=== PATIENT | male | born 1975 | race Caucasian/White ===

== ENCOUNTER 2017-07-25 08:34 | Observation (INO) ==
[~2017-07-25 08:34] MED LIST: *HR* LORazepam 2 MG/ML VIAL IV PRN; *HR* Promethazine 25 MG/ML VIAL IV PRN; Acetaminophen 325 MG TABLET PO ONE; Dexamethasone 10 MG/ML VIAL IV PRN; Methotrexate PFS 25 MG/ML VIAL IT SCH; Prochlorperazine 10 MG/2 ML VIAL IV PRN; RITUXIMAB IV SCH; SODIUM CHLORIDE 0.9% IV SCH
--- NOTE | 2017-07-25 10:58 | Internal Med History&Physical ---
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 Schreiber Qualifiers: Lymphoma site: extranodal excluding spleen and other solid organs Qualified Code(s): C83.79 - Burkitt lymphoma, extranodal and solid organ sites (2) GERD (gastroesophageal reflux disease) Current visit: Yes Status: Chronic Continue Pepcid Qualifiers: Esophagitis presence: with esophagitis Qualified Code(s): K21.0 - Gastro- esophageal reflux disease with esophagitis (3) Tobacco dependence Current visit: Yes Status: Chronic Smoking cessation discussed will place nicotine patch (4) Obesity Current visit: Yes Status: Chronic Qualifiers: Obesity type: due to excess calories Obesity classification: adult class 2 (BMI 35 - 39.9) Serious obesity comorbidity presence: without serious comorbidity Body mass index: BMI 36.0-36.9 Qualified Code(s): E66.09 - Other obesity due to excess calories; Z68.36 - Body mass index (BMI) 36.0-36.9, adult; Z68.36 - Body mass index (BMI) 36.0-36.9, adult Internal Medicine - H&P: HPI Chief complaint: lymphoma Admitted From: Home Plans for Post Hospital Care: Home History of present illness: Mr. Robison is a 42 year old male who has history of GERD presented oncology clinic for Burkitt's lymphoma. Patient has history of severe GERD, had a EGD done on June 29, he had 3 gastric polyps removed. He got a call on July 01 for pathologic result, of which showing lymphoma. Patient is completely asymptomatic , denies abdominal pain, nausea, vomiting, no lymphadenopathy. He denies any fever or night sweats. He was seen by Dr. Pierre Schrieber for chemotherapy treatment. Direct admitted for inpatient chemotherapy. Patient is smoker. Past Med Surg Social Fam HX - Past Medical History Medical history: GERD Psychiatric history: no psych history - Social History Smoking Status: Former smoker Smokeless Tobacco Status: No Alcohol use: none Drug use: none Internal Medicine - H&P: Meds Omeprazole [PriLOSEC] 40 mg PO DAILY 06/29/17 [History] Lidocaine/Prilocaine [Emla] 1 appl TP DAILY #30 gm 07/14/17 [Rx] Promethazine [Phenergan] 25 mg PO Q6HR PRN #30 tablet 07/14/17 [Rx] 3 Allergy/AdvReac Type Severity Reaction Status Date / Time No Known Allergies Allergy Verified 06/29/17 10:37 All Systems PM: A 10-system review of systems was performed and is negative for pertinent findings except as documented above in the HPI. - Constitutional Vitals: Temp Pulse Resp BP Pulse Ox 98.2 F 89 14 129/87 97 07/25/17 10:20 07/25/17 10:20 07/25/17 10:20 07/25/17 10:20 07/25/17 10:20 General appearance: Present: cooperative, A&O X 3, no acute distress, obese Exam: CONSTITUTIONAL: Patient appears as an age appropriate male well developed, in no acute distress. EYES Clear sclerae, bilateral pupils are equal, reactive to light and accommodation. Extraocular movements are intact RESPIRATORY: No accessory muscle use, bilateral clear to auscultation, no wheezing, no crackles/rales. CARDIOVASCULAR: Regular heart rate, normal S1 and S2, no murmurs GASTROINTESTINAL: bowel sounds present, soft, no tenderness. No hepatosplenomegaly. No bilateral CVA tenderness MUSCULOSKELETAL: Joints in normal range of motion, no clubbing, no edema, no cyanosis. Bilateral peripheral pulses 2+ LYMPHATIC no lymphadenopathy in neck, groin and axilla bilaterally, no thyromegaly. NEUROLOGIC: CN II to XII are grossly intact, no focal neurological deficit. Deep tendon reflexes 2+ bilaterally. Normal light touch sensation to upper and lower extremity PSYCHIATRIC: Oriented x3, with good insight, mood is euthymic. No hallucinations or delusions. SKIN: Skin warm and dry, no rashes, no open wound.
[2017-07-25] MEDS ORDERED: Naloxone 0.4 MG/ML INJ IVP PRN (11:03)
[2017-07-25] MEDS ORDERED: predniSONE 20 MG TABLET PO SCH ×2 (11:30→21:00)
--- NOTE | 2017-07-25 13:13 | IR Procedure Note ---
Date of procedure: 07/25/17 Consent Obtained: Written consent Timeout: Correct patient and procedure verified, Correct site verified, Time out performed, Skin prep completed Indications: lymphoma Procedure Performed: intrathecal methtraxate injection Was there an clinical trials assistant present: No Site/Technique: L4-5 vaccess Results/Findings: successful injection Estimated blood loss (cc): 0 Complications: None; Tolerated procedure well Post Procedure Treatment Plan: dc to floor Specimen: none
[2017-07-25] MEDS ORDERED: *HR* Meperidine 25 MG/ML SYRINGE IVP PRN (16:05)
[2017-07-25] MEDS: 0.9 % Sodium Chloride 500 ML IVC SCH (16:14)
[2017-07-25] MEDS: predniSONE 20 MG TABLET PO ONE ×2 (16:22→17:08)
[2017-07-25] MEDS ORDERED: Dexamethasone 4 MG/ML VIAL IVP ONE (17:00)
[2017-07-25] MEDS ORDERED: DOXORUBICIN HCL IV SCH (19:00)
[2017-07-25] MEDS ORDERED: VINCRISTINE IV SCH (19:00)
[2017-07-25] MEDS ORDERED: ETOPOSIDE IV SCH (19:00)
[2017-07-25] MEDS ORDERED: [UNRECOGNIZED DRUG - OTHER] IV SCH (19:00)
[2017-07-25] MEDS ORDERED: Dexamethasone 10 MG/ML VIAL IVP ONE (21:00)
[2017-07-26] MEDS ORDERED: 0.9 % Sodium Chloride 250 ML ONE (00:50)
[2017-07-26 04:39] LABS: Hematocrit 43.5 % (37.5-50.1); Hemoglobin 14.8 g/dL (12.9-16.9); Mean Corpuscular Hemoglobin 29.8 pg (28.0-33.3); Mean Corpuscular Volume 87.5 fL (83.0-100.0); Mean Platelet Volume 9.1 fL (9.4-12.4); Platelet Count 232 K/mcL (140-400); Red Blood Count 4.97 M/mcL (4.19-5.50); Red Cell Distribution Width 11.8 % (11.5-14.5)
[2017-07-26 04:53] LABS: BUN/Creatinine Ratio 15 (6-26); Blood Urea Nitrogen 13 mg/dL (6-20); Calcium 9.3 mg/dL (8.6-10.3); Carbon Dioxide 24 mEq/L (23-29); Chloride 107 mEq/L (98-107); Glucose 266 mg/dL (70-105); Osmolality,Calculated 293 (280-300); Potassium 4.5 mEq/L (3.5-5.1); Sodium 137 mEq/L (136-145); eGFR For African Americans > 60 (> 60); eGFR For Non-African Americans > 60 (> 60)
[2017-07-26] MEDS ORDERED: predniSONE 20 MG TABLET PO SCH (08:00)
[2017-07-26] MEDS: Loratadine 10 MG TABLET PO SCH (08:49)
[2017-07-26] MEDS: methylPREDNISolone 125 MG/2 ML VIAL IVP SCH ×2 (08:50→18:35)
[2017-07-26] MEDS: Famotidine 20 MG/2 ML VIAL IV PRN (08:52)
[2017-07-26] MEDS: Fosaprepitant Dimeglumine 150 MG in 0.9 % Sodium Chloride 250 ML IV SCH (09:15)
[2017-07-26] MEDS: 0.9 % Sodium Chloride 500 ML IVC SCH (09:19)
--- NOTE | 2017-07-26 14:04 | Internal Med Progress Note ---
Date of Encounter: 07/26/17 Time of Encounter: 14:03 - Assessment and plan (1) Burkitts lymphoma Current Visit: Yes Status: Acute Assessment and plan: management per oncology Qualifiers: Lymphoma site: extranodal excluding spleen and other solid organs Qualified Code(s): C83.79 - Burkitt lymphoma, extranodal and solid organ sites (2) GERD (gastroesophageal reflux disease) Current Visit: Yes Status: Chronic Assessment and plan: continue omeprazole, patient is on high dose steroids Qualifiers: Esophagitis presence: with esophagitis Qualified Code(s): K21.0 - Gastro- esophageal reflux disease with esophagitis (3) Obesity Current Visit: Yes Status: Chronic Assessment and plan: lifestyle modification Qualifiers: Obesity type: due to excess calories Obesity classification: adult class 2 (BMI 35 - 39.9) Serious obesity comorbidity presence: without serious comorbidity Body mass index: BMI 36.0-36.9 Qualified Code(s): E66.09 - Other obesity due to excess calories; Z68.36 - Body mass index (BMI) 36.0-36.9, adult; Z68.36 - Body mass index (BMI) 36.0-36.9, adult (4) Tobacco dependence Current Visit: Yes Status: Chronic Assessment and plan: NRT - Time Spent With Patient Total time spent is greater than 50% in coordination of care (as documented) at patient's floor/unit and/or counseling patient: - Subjective Interval history: 42 M with Burkitt's lymphoma , on admission for his first cycle of chemo he reports having had some reaction to chemo 4/2, no documentation of same He has no new complains this morning and is tolerating the chemo appropriately He also uses nicotine and is requesting NRT - Constitutional Vitals: Temp Pulse Resp BP Pulse Ox 98.0 F 111 14 138/76 96 07/26/17 11:08 07/26/17 11:08 07/26/17 11:08 07/26/17 11:08 07/26/17 11:08 General appearance: Present: cooperative, A&O X 3, no acute distress, obese - Head Head exam: Present: atraumatic, normocephalic - Eye Eye exam: Present: PERRL, conjuntiva pink, sclera anicteric Pupils: Present: PERRL - Neck Neck exam general surgery: Present: supple, trachea midline. Absent: lymphadenopathy - Respiratory Respiratory exam: Present: CTAB. Absent: accessory muscle use, rales, rhonchi, wheezes Additional comments: R chest port with clean and dry dressings - Cardiovascular Cardiovascular exam: Present: RRR, +S1, +S2. Absent: diastolic murmur, gallop, rubs, systolic murmur - GI/Abdominal GI/Abdominal exam: Present: normal bowel sounds, soft, no peritoneal signs. Absent: distended, tenderness - Extremities Exam Extremities exam: Present: warm, radial pulses palpable and symmetrical. Absent : calf tenderness, cyanotic, pedal edema - Neurological Exam Neurological exam: Present: alert, CN II-XII intact, oriented X3, no focal deficits. Absent: pronater drift, facial droop, speech deficit - Skin Skin exam: Present: dry, intact Internal Medicine: Result - Labs CBC & Chem 7: 07/26/17 04:00 07/26/17 04:00 Labs: Short CBC 07/26/17 Range/Units 04:00 WBC 16.1 H (4.3-11.1) K/mcL Hgb 14.8 (12.9-16.9) g/dL Hct 43.5 (37.5-50.1) % Plt Count 232 (140-400) K/mcL [facility] 07/26/17 04:00 Sodium 137 Potassium 4.5 Chloride 107 Carbon Dioxide 24 BUN 13 Creatinine 0.88 Glucose 266 H Calcium 9.3 Consult Discharge Plan - Plan Referrals: Lanny Stout, SENIOR PRODUCT MANAGER [Primary Care Provider] -
[2017-07-26] MEDS ORDERED: *HR* Dextrose 50 % in Water (Syg) 50 ML SYRINGE IVP PRN (15:21)
[2017-07-26] MEDS ORDERED: Dextrose Gel 15 GM/37.5 ML TUBE PO PRN ×2 (15:21)
[2017-07-26] MEDS ORDERED: D5% in Water 1,000 ML IVC PRN (15:21)
--- NOTE | 2017-07-26 16:49 | Oncology Inp Consult Note ---
<CandiePierre S - Last Filed: 07/26/17 20:32> Date of Encounter: 07/26/17 - Data of Consult Requesting Physician: Javier Toribio MD Primary Care Provider: Lanny Stout CNP - Consult Narrative History of present illness: Mr. Robison is a 42 year old male Medications and Allergies Omeprazole [PriLOSEC] 40 mg PO DAILY 06/29/17 [History] Loratadine [Allergy Relief] 10 mg PO DAILY 07/25/17 [History] Varenicline Tartrate [Chantix Starting Month BRIGITTE] 1 tab PO BID 07/25/17 [History ] 3 Allergy/AdvReac Type Severity Reaction Status Date / Time No Known Allergies Allergy Verified 07/25/17 14:03 Oncology - Exam - Constitutional Vitals: Temp Pulse Resp BP Pulse Ox 98.0 F 107 16 138/78 94 07/26/17 18:37 07/26/17 18:37 07/26/17 18:37 07/26/17 18:37 07/26/17 18:37 Oncology - Results Labs: Short CBC 07/26/17 Range/Units 04:00 WBC 16.1 H (4.3-11.1) K/mcL Hgb 14.8 (12.9-16.9) g/dL Hct 43.5 (37.5-50.1) % Plt Count 232 (140-400) K/mcL [facility] 07/26/17 04:00 Sodium 137 Potassium 4.5 Chloride 107 Carbon Dioxide 24 BUN 13 Creatinine 0.88 Glucose 266 H Calcium 9.3 Consult Discharge Plan - Plan Referrals: Lanny Stout CNP [Primary Care Provider] - - Attending Attestation I have seen and examined Mr. Robison and agree with Dung Whitten's assessment. Mr Robison is doing well with R-EPOCH and is without side effect today. He did have a reaction to rituximab secondary to nursing not administering premedication in a timely fashion. This has been addressed with the nursing staff. No dose adjustment needed. Will complete therapy on Tuesday, and will try to get d/c by 11 AM. IT MTX on Tuesday. 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 DA-REPOCH with IT MTX (day 1 and day 5 for 4 of the cycles) initiated 07/25/17 requiring his inpatient admission. He is curative intent. Recommend continuing Claritin once daily, Zantac once daily along with the availability of other supportive medications such as compazine, phenergan and Mcgregor. He has been placed on Lovenox 40 mg through once daily (not to be given on Tuesday in preparation for his lumbar puncture). Continue to monitor labs daily I had a nice discussion with Mr. Robison today. He experienced a reaction yesterday afternoon to Rituximab which was found to be secondary to the late administration of premedications. He is currently in the process of receiving his premedications now prior to starting R-EPOCH infusion. He will now be planned for discharge on Tuesday, he will plan to receive his IT MTX as planned on day 5 or this Tuesday. Today, he is doing well and without any report of symptoms or complaint. Dr. Schreiber will also round on patient today as well. He will receive Neulasta support on Tuesday08/01/2017 along with a follow up visit with Dr. Schreiber. Dr. Schreiber will also round with patient today, please refer to Dr. Schreiber's attestation for additional details. Qualifiers: Lymphoma site: extranodal excluding spleen and other solid organs Qualified Code(s): C83.79 - Burkitt lymphoma, extranodal and solid organ sites - Data of Consult Patient: known to practice within the last 3 years Consult date: 07/26/17 Requesting Physician: Javier Toribio MD Primary Care Provider: Lanny Stout CNP - Consult Narrative Reason for consult: Burkitt Lymphoma History of present illness: Mr. Robison is a 42 year old male with clinical stage Iea Burkitt lymphoma involving the stomach. Bone marrow biopsy 07/14/17 and CSF with FLOW 07/20/17 negative. There is nonspecific uptake about his sigmoid colon which could represent lymphoma although this is unclear. LDH is normal, hepatitis B and HIV serologies are negative. DA-REPOCH with IT MTX (day 1 and day 5 for 4 of the cycles) initiated 07/25/17 requiring his inpatient admission. He is curative intent. Past Med Surg Social Fam HX - Past Medical History Medical history: GERD Psychiatric history: no psych history - Social History Smoking Status: Former smoker Smokeless Tobacco Status: No Alcohol use: none Drug use: none Constitutional: Absent: anorexia, chills, fatigue, fever(s), headache(s), weakness Eyes: Absent: change in vision Nose, mouth and throat: Absent: dysphagia, mouth lesions, mouth pain Cardiovascular: Absent: chest pain, irregular heart rhythm Respiratory: Absent: cough, dyspnea Gastrointestinal: Absent: abdominal pain, constipation, diarrhea, hematemesis, hematochezia, melena, nausea, vomiting Additional comments: denies dysuria or hematuria Musculoskeletal: Absent: muscle weakness Integumentary: Absent: wounds Neurological: Absent: focal weakness, frequent falls Hematologic/Lymphatic: Present: as per HPI Oncology - Exam - Constitutional Vitals: Temp Pulse Resp BP Pulse Ox 99.0 F 121 16 116/64 96 07/26/17 16:08 07/26/17 16:08 07/26/17 16:08 07/26/17 16:08 07/26/17 16:08 General appearance: cooperative, no acute distress, no febrile - Head Head exam: Present: atraumatic - ENT ENT exam: Present: mucous membranes moist, normal exam - Respiratory Respiratory exam: Present: CTAB. Absent: respiratory distress - Cardiovascular Cardiovascular exam: Present: RRR, +S1, +S2 - GI/Abdominal GI/Abdominal exam: Present: normal bowel sounds, soft. Absent: tenderness - Extremities Exam Extremities exam: Present: normal inspection. Absent: calf tenderness - Neurological Exam Neurological exam: Present: alert, oriented X3, no focal deficits, strengths equal and symetr throughout - Psychiatric Psychiatric exam: Present: normal affect, normal mood - Skin Skin exam: Present: dry, intact, normal color, warm Oncology - Results Labs: Short CBC 07/26/17 Range/Units 04:00 WBC 16.1 H (4.3-11.1) K/mcL Hgb 14.8 (12.9-16.9) g/dL Hct 43.5 (37.5-50.1) % Plt Count 232 (140-400) K/mcL [facility] 07/26/17 04:00 Sodium 137 Potassium 4.5 Chloride 107 Carbon Dioxide 24 BUN 13 Creatinine 0.88 Glucose 266 H Calcium 9.3
[2017-07-26] MEDS: Insulin LISPRO 300 UNITS/3 ML VIAL SQ SCH ×2 (18:34→21:03)
[2017-07-26] MEDS ORDERED: Ibuprofen 600 MG TABLET PO PRN (20:05)
[2017-07-27] MEDS: *HR* Enoxaparin 40 MG/0.4 ML SYRINGE SQ SCH (05:08)
[2017-07-27] MEDS ORDERED: 0.9 % Sodium Chloride 250 ML ONE (05:26)
[2017-07-27 06:30] LABS: Basophils % 0.1 %; Mean Corpuscular HGB Conc 33.7 g/dL (31.6-35.5); Monocytes % 2.1 %
[2017-07-27 06:31] LABS: Hematocrit 41.6 % (37.5-50.1); Immature Granulocytes % 1.2 % (0-4); Lymphocytes # 0.5 K/mcL (0.6-4.6); Lymphocytes % 1.5 %; Mean Corpuscular Hemoglobin 29.5 pg (28.0-33.3); Mean Corpuscular Volume 87.8 fL (83.0-100.0); Monocytes # 0.7 K/mcL (0.0-1.3); Neutrophils # 29.9 K/mcL (1.6-8.9); Platelet Count 242 K/mcL (140-400); Red Blood Count 4.74 M/mcL (4.19-5.50); Red Cell Distribution Width 11.8 % (11.5-14.5); Segmented Neutrophils % 95.1 %
[2017-07-27 06:52] LABS: BUN/Creatinine Ratio 23 (6-26); Blood Urea Nitrogen 18 mg/dL (6-20); Calcium 8.9 mg/dL (8.6-10.3); Carbon Dioxide 22 mEq/L (23-29); Chloride 110 mEq/L (98-107); Glucose 246 mg/dL (70-105); Osmolality,Calculated 298 (280-300); Potassium 4.1 mEq/L (3.5-5.1); Sodium 139 mEq/L (136-145); eGFR For African Americans > 60 (> 60); eGFR For Non-African Americans > 60 (> 60)
[2017-07-27 07:37] LABS: Platelet Estimate Normal (Normal)
[2017-07-27] MEDS ORDERED: ETOPOSIDE IV SCH (07:45)
[2017-07-27] MEDS ORDERED: [UNRECOGNIZED DRUG - OTHER] IV SCH (07:45)
[2017-07-27] MEDS ORDERED: DOXORUBICIN HCL IV SCH (07:45)
[2017-07-27] MEDS ORDERED: VINCRISTINE IV SCH (07:45)
[2017-07-27] MEDS: Loratadine 10 MG TABLET PO SCH (08:29)
[2017-07-27] MEDS: Insulin LISPRO 300 UNITS/3 ML VIAL SQ SCH ×4 (08:29→20:54)
[2017-07-27] MEDS: Nicotine 21 MG PATCH.TD24 TD SCH (08:29)
[2017-07-27] MEDS: methylPREDNISolone 125 MG/2 ML VIAL IVP SCH ×2 (08:31→17:00)
--- NOTE | 2017-07-27 10:47 | Internal Med Progress Note ---
Date of Encounter: 07/27/17 Time of Encounter: 10:46 - Assessment and plan (1) Burkitts lymphoma Current Visit: Yes Status: Acute Assessment and plan: management per oncology Qualifiers: Lymphoma site: extranodal excluding spleen and other solid organs Qualified Code(s): C83.79 - Burkitt lymphoma, extranodal and solid organ sites (2) GERD (gastroesophageal reflux disease) Current Visit: Yes Status: Chronic Assessment and plan: continue omeprazole, patient is on high dose steroids Qualifiers: Esophagitis presence: with esophagitis Qualified Code(s): K21.0 - Gastro- esophageal reflux disease with esophagitis (3) Obesity Current Visit: Yes Status: Chronic Assessment and plan: lifestyle modification Qualifiers: Obesity type: due to excess calories Obesity classification: adult class 2 (BMI 35 - 39.9) Serious obesity comorbidity presence: without serious comorbidity Body mass index: BMI 36.0-36.9 Qualified Code(s): E66.09 - Other obesity due to excess calories; Z68.36 - Body mass index (BMI) 36.0-36.9, adult; Z68.36 - Body mass index (BMI) 36.0-36.9, adult (4) Tobacco dependence Current Visit: Yes Status: Chronic Assessment and plan: NRT (5) Tachycardia Current Visit: Yes Status: Acute Assessment and plan: Recommended intravenous fluid hydration, but patient refused. Continue to monitor at this time. Obtain EKG. - Time Spent With Patient Total time spent is greater than 50% in coordination of care (as documented) at patient's floor/unit and/or counseling patient: - Subjective Interval history: 42 M with Burkitt's lymphoma , on admission for his first cycle of chemo he reports having had some reaction to chemo 4/2, no documentation of same He has no new complains this morning and is tolerating the chemo appropriately He also uses nicotine and is requesting NRT, obliged His WBC is increased this morning, hematology is following-oncology, patient will be discharged on Tuesday after his therapy. The patient also has tachycardia, however he reports that he has had some stress overnight due to family issues, he refuses any intervention for the tachycardia at this time. We will continue to monitor. - Constitutional Vitals: Temp Pulse Resp BP Pulse Ox 98.4 F 115 16 153/91 97 07/27/17 10:12 07/27/17 10:12 07/27/17 10:12 07/27/17 10:12 07/27/17 10:12 General appearance: Present: cooperative, A&O X 3, no acute distress, obese - Head Head exam: Present: atraumatic, normocephalic - Eye Eye exam: Present: PERRL, conjuntiva pink, sclera anicteric Pupils: Present: PERRL - Neck Neck exam general surgery: Present: supple, trachea midline. Absent: lymphadenopathy - Respiratory Respiratory exam: Present: CTAB. Absent: accessory muscle use, rales, rhonchi, wheezes - Cardiovascular Cardiovascular exam: Present: RRR, +S1, +S2, tachycardia - GI/Abdominal GI/Abdominal exam: Present: normal bowel sounds, soft, no peritoneal signs. Absent: distended, tenderness - Extremities Exam Extremities exam: Present: warm, radial pulses palpable and symmetrical. Absent : calf tenderness, cyanotic, pedal edema - Neurological Exam Neurological exam: Present: alert, CN II-XII intact, oriented X3, no focal deficits. Absent: pronater drift, facial droop, speech deficit - Skin Skin exam: Present: dry, intact Internal Medicine: Result - Labs CBC & Chem 7: 07/27/17 06:07 07/27/17 06:07 Labs: Short CBC 07/27/17 Range/Units 06:07 WBC 31.4 H* D (4.3-11.1) K/mcL Hgb 14.0 (12.9-16.9) g/dL Hct 41.6 (37.5-50.1) % Plt Count 242 (140-400) K/mcL Neutrophils # 29.9 H (1.6-8.9) K/mcL BMP 07/27/17 06:07 Sodium 139 Potassium 4.1 Chloride 110 H Carbon Dioxide 22 L BUN 18 Creatinine 0.79 Glucose 246 H Calcium 8.9 Consult Discharge Plan - Plan Referrals: Lanny Stout CNP [Primary Care Provider] -
[2017-07-27] MEDS: 0.9 % Sodium Chloride 500 ML IVC SCH (11:00)
--- NOTE | 2017-07-27 15:49 | Oncology Inp Progress Note ---
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 DA-REPOCH with IT MTX (day 1 and day 5 for 4 of the cycles) initiated 07/25/17 as a 96 hour continuous infusion requiring his inpatient admission. He is curative intent. He is feeling well today with no physical complaints. He has not needed any of his PRN supportive medications. He is tachycardic and hypertensive at times. EKG obtained per primary team. He is showing adequate intake and output. He does report feeling on edge with increased stress at home following an incident this morning. His tachycardia and HTN is likely secondary to high dose steroid administration given with his chemotherapy regimen. Plan to continue to monitor at this time. Neutrophil predominant leukocytosis likely related to steroid administration. He is afebrile. His solumedrol will now be changed back to prednisone 140 mg PO BIDWM. He is on prilosec 40 mg daily for ulcer prophylaxis. He is planned for day 5 IT MTX with IR on Saturday 07/29. He is planned to receive his last dose of lovenox 40 mg on 07/28, no lovenox on 07/29 in preparation for his IT MTX. He is planned to stay through Tuesday morning for inpatient chemotherapy administration. He will receive Neulasta support on Tuesday08/01/2017 along with a follow up visit with Dr. Schreiber. Qualifiers: Lymphoma site: extranodal excluding spleen and other solid organs Qualified Code(s): C83.79 - Burkitt lymphoma, extranodal and solid organ sites Oncology: Subj Interval history: Mr. Robison is sitting on the side of the bed. He states he feels well and denies headache, dizziness, visual changes, dysphagia, rash, pain, nausea, vomiting, diarrhea, peripheral neuropathy or symptoms related to mucositis. He states he is under increased stress due to a personal situation involving his and children this morning. He otherwise has no complaints. He did ambulate around the floor this morning prior to starting his infusion. - Constitutional Vitals: Vital Signs Temp Pulse Resp BP Pulse Ox 07/27/17 14:07 98.0 F 108 15 149/101 95 07/27/17 10:12 98.4 F 115 16 153/91 97 07/27/17 07:24 97.5 F L 100 15 141/89 96 07/27/17 03:09 97.9 F 94 14 118/64 97 07/26/17 23:31 97.9 F 99 16 97/61 95 07/26/17 21:00 97.9 F 109 15 130/66 96 07/26/17 18:37 98.0 F 107 16 138/78 94 07/26/17 16:08 99.0 F 121 16 116/64 96 Intake and Output 07/26/17 07/27/17 07/27/17 23:59 07:59 15:59 Intake Total 640 / 640 1600 / 1600 1497.9 / 1497.9 Output Total 950 / 950 700 / 700 375 / 375 Balance -310 / -310 900 / 900 1122.9 / 1122.9 Intake: IV Fluids 300 / 300 517.9 / 517.9 0.9 % Sodium Chloride 500 ML @ 300 / 300 25 mls/hr IVC .Q20H RICH Rx#: [id number] Oral 640 / 640 1300 / 1300 980 / 980 Output: Urine 950 / 950 700 / 700 375 / 375 Other: Meal Dinner Lunch Percent of Meal Consumed 100% 100% # Voids 1 Weight 114.3 kg Blood Glucose* 289 168 282 Patient Weight 07/27/17 23:59 Weight 114.3 kg General appearance: cooperative, no acute distress, no febrile Exam: non toxic appearing - Head Head exam: Present: atraumatic - ENT ENT exam: Present: mucous membranes moist, normal exam - Respiratory Respiratory exam: Present: CTAB. Absent: respiratory distress - Cardiovascular Cardiovascular exam: Present: RRR, +S1, +S2, tachycardia - GI/Abdominal GI/Abdominal exam: Present: normal bowel sounds, soft. Absent: guarding, rebound, tenderness - Extremities Exam Extremities exam: Present: normal inspection. Absent: calf tenderness - Back Exam Back exam: Absent: tenderness - Neurological Exam Neurological exam: Present: alert, oriented X3, no focal deficits, strengths equal and symetr throughout - Psychiatric Psychiatric exam: Present: normal affect, normal mood - Skin Skin exam: Present: dry, intact, normal color, warm Oncology: Obj Data - Labs CBC & Chem 7: 07/27/17 06:07 07/27/17 06:07 Labs: Laboratory Results - last 24 hr 07/26/17 07/26/17 07/27/17 18:11 21:00 06:07 WBC 31.4 H* D RBC 4.74 Hgb 14.0 Hct 41.6 MCV 87.8 MCH 29.5 MCHC 33.7 RDW 11.8 Plt Count 242 MPV 9.0 L Immature Gran % 1.2 Seg Neutrophils % 95.1 Lymphocytes % 1.5 Monocytes % 2.1 Eosinophils % 0.0 Basophils % 0.1 Neutrophils # 29.9 H Lymphocytes # 0.5 L Monocytes # 0.7 Eosinophils # 0.0 Basophils # 0.0 Platelet Estimate Normal Sodium Potassium Chloride Carbon Dioxide BUN Creatinine Est GFR ( Amer) Est GFR (Non-Af Amer) BUN/Creatinine Ratio Glucose POC Glucose 266 H 289 H Calculated Osmolality Calcium 07/27/17 06:07 WBC RBC Hgb Hct MCV MCH MCHC RDW Plt Count MPV Immature Gran % Seg Neutrophils % Lymphocytes % Monocytes % Eosinophils % Basophils % Neutrophils # Lymphocytes # Monocytes # Eosinophils # Basophils # Platelet Estimate Sodium 139 Potassium 4.1 Chloride 110 H Carbon Dioxide 22 L BUN 18 Creatinine 0.79 Est GFR ( Amer) > 60 Est GFR (Non-Af Amer) > 60 BUN/Creatinine Ratio 23 Glucose 246 H POC Glucose Calculated Osmolality 298 Calcium 8.9 Consult Discharge Plan - Plan Referrals: Lanny Stout, PHYSICAL CHEMISTRY TEACHER [Primary Care Provider] -
[2017-07-27] MEDS: Famotidine 20 MG/2 ML VIAL IV PRN (21:53)
[2017-07-28] MEDS: *HR* Enoxaparin 40 MG/0.4 ML SYRINGE SQ SCH (05:18)
[2017-07-28 06:45] LABS: Uric Acid 4.8 mg/dL (2.3-7.6)
[2017-07-28 06:45] LABS: BUN/Creatinine Ratio 24 (6-26); Blood Urea Nitrogen 18 mg/dL (6-20); Calcium 8.8 mg/dL (8.6-10.3); Carbon Dioxide 25 mEq/L (23-29); Chloride 111 mEq/L (98-107); Glucose 148 mg/dL (70-105); Osmolality,Calculated 287 (280-300); Potassium 3.9 mEq/L (3.5-5.1); Sodium 136 mEq/L (136-145); eGFR For African Americans > 60 (> 60); eGFR For Non-African Americans > 60 (> 60)
--- NOTE | 2017-07-28 08:12 | Oncology Inp Progress Note ---
Date of Encounter: 07/28/17 Time of Encounter: 08:10 (1) Burkitts lymphoma Current Visit: Yes Status: Acute Assessment and plan: Stage Iae Burkitts Lymphoma. He will complete his course of therapy on early Tuesday. Goal will be to be d/c by 11 AM as he has an event to attend on Tuesday. IT MTX ordered for tomorrow. Will transition back to prednsisone oral. Encouraged ambulation. Neulasta on Tuesday. Qualifiers: Lymphoma site: extranodal excluding spleen and other solid organs Qualified Code(s): C83.79 - Burkitt lymphoma, extranodal and solid organ sites Oncology: Subj Interval history: He is feeling well today. Worried about his blood pressure a bit and cut back on eating. No nausea or emesis. No fever. Ambulating. No pain. No acute issues. - Constitutional Vitals: Vital Signs Temp Pulse Resp BP Pulse Ox 07/28/17 07:40 98.6 F 82 15 133/86 98 07/28/17 03:25 97.6 F 77 18 128/77 95 07/28/17 00:00 98.4 F 92 17 127/77 96 07/27/17 20:06 98.3 F 96 16 135/87 95 07/27/17 14:07 98.0 F 108 15 149/101 95 07/27/17 10:12 98.4 F 115 16 153/91 97 Intake and Output 07/27/17 07/28/17 07/28/17 16:59 00:59 08:59 Intake Total 1257.9 / 1257.9 980 / 980 0 / 0 Output Total 375 / 375 0 / 0 Balance 882.9 / 882.9 980 / 980 0 / 0 Intake: IV Fluids 517.9 / 517.9 Oral 740 / 740 980 / 980 0 / 0 Output: Urine 375 / 375 0 / 0 Other: Meal Lunch Dinner Percent of Meal Consumed 100% 100% # Voids 1 0 # Bowel Movements 1 Weight 114.3 kg Blood Glucose* 208 193 128 Patient Weight 07/29/17 00:59 Weight 114.3 kg General appearance: average body habitus - Head Head exam: Present: atraumatic, normal inspection, normocephalic - Eye Eye exam: Present: normal appearance, conjuntiva pink, sclera anicteric - ENT ENT exam: Present: mucous membranes moist, normal exam, normal oropharynx - Neck Neck exam: Present: full ROM, normal inspection - Respiratory Respiratory exam: Present: CTAB - Cardiovascular Cardiovascular exam: Present: RRR - GI/Abdominal GI/Abdominal exam: Present: normal bowel sounds, soft - Extremities Exam Extremities exam: Present: normal inspection - Neurological Exam Neurological exam: Present: alert, CN II-XII intact, no focal deficits Oncology: Obj Data - Labs CBC & Chem 7: 07/28/17 08:03 07/28/17 04:00 Labs: Laboratory Results - last 24 hr 07/27/17 07/27/17 07/27/17 07:28 11:13 16:06 Sodium Potassium Chloride Carbon Dioxide BUN Creatinine Est GFR ( Amer) Est GFR (Non-Af Amer) BUN/Creatinine Ratio Glucose POC Glucose 168 H 282 H 208 H Calculated Osmolality Uric Acid Calcium Lactate Dehydrogenase 07/27/17 07/28/17 07/28/17 20:47 04:00 06:15 Sodium 136 Potassium 3.9 Chloride 111 H Carbon Dioxide 25 BUN 18 Creatinine 0.74 Est GFR ( Amer) > 60 Est GFR (Non-Af Amer) > 60 BUN/Creatinine Ratio 24 Glucose 148 H POC Glucose 193 H Calculated Osmolality 287 Uric Acid 4.8 Calcium 8.8 Lactate Dehydrogenase 131 L Consult Discharge Plan - Plan Referrals: Lanny Stout, INDUSTRIAL MAINTENANCE REPAIRER [Primary Care Provider] -
[2017-07-28 08:37] LABS: Estimated Average Glucose 134 mg/dl; Hemoglobin A1C 6.3 %
[2017-07-28 09:12] LABS: Hematocrit 39.3 % (37.5-50.1); Mean Corpuscular HGB Conc 34.4 g/dL (31.6-35.5); Mean Corpuscular Hemoglobin 29.5 pg (28.0-33.3); Mean Platelet Volume 8.7 fL (9.4-12.4); Platelet Count 222 K/mcL (140-400); Red Blood Count 4.57 M/mcL (4.19-5.50); Red Cell Distribution Width 11.8 % (11.5-14.5)
[2017-07-28 09:13] LABS: Hemoglobin 13.5 g/dL (12.9-16.9)
[2017-07-28] MEDS: Insulin LISPRO 300 UNITS/3 ML VIAL SQ SCH ×4 (09:15→21:39)
[2017-07-28 09:31] LABS: Lymphocytes # 0.9 K/mcL (0.6-4.6); Neutrophils # 22.5 K/mcL (1.6-8.9); Platelet Estimate Normal (Normal)
[2017-07-28] MEDS: 0.9 % Sodium Chloride 500 ML IVC SCH ×3 (10:04→19:53)
[2017-07-28] MEDS: Loratadine 10 MG TABLET PO SCH (10:06)
[2017-07-28] MEDS: Nicotine 21 MG PATCH.TD24 TD SCH (10:06)
[2017-07-28] MEDS: predniSONE 20 MG TABLET PO SCH ×2 (10:07→17:32)
[2017-07-28] MEDS: ETOPOSIDE IV SCH (11:50)
[2017-07-28] MEDS: DOXORUBICIN HCL IV SCH (11:50)
[2017-07-28] MEDS: [UNRECOGNIZED DRUG - OTHER] IV SCH (11:50)
[2017-07-28] MEDS: VINCRISTINE IV SCH (11:50)
--- NOTE | 2017-07-28 13:38 | Internal Med Progress Note ---
Date of Encounter: 07/28/17 Time of Encounter: 13:38 - Assessment and plan (1) Burkitts lymphoma Current Visit: Yes Status: Acute Assessment and plan: management per oncology Qualifiers: Lymphoma site: extranodal excluding spleen and other solid organs Qualified Code(s): C83.79 - Burkitt lymphoma, extranodal and solid organ sites (2) GERD (gastroesophageal reflux disease) Current Visit: Yes Status: Chronic Assessment and plan: continue omeprazole, patient is on high dose steroids Qualifiers: Esophagitis presence: with esophagitis Qualified Code(s): K21.0 - Gastro- esophageal reflux disease with esophagitis (3) Obesity Current Visit: Yes Status: Chronic Assessment and plan: lifestyle modification Qualifiers: Obesity type: due to excess calories Obesity classification: adult class 2 (BMI 35 - 39.9) Serious obesity comorbidity presence: without serious comorbidity Body mass index: BMI 36.0-36.9 Qualified Code(s): E66.09 - Other obesity due to excess calories; Z68.36 - Body mass index (BMI) 36.0-36.9, adult; Z68.36 - Body mass index (BMI) 36.0-36.9, adult (4) Tobacco dependence Current Visit: Yes Status: Chronic Assessment and plan: NRT (5) Tachycardia Current Visit: Yes Status: Resolved Assessment and plan: resolved (6) Diabetes mellitus Current Visit: Yes Status: Chronic Assessment and plan: new diagnosis A1C 6.5 Continue sliding scale insulin for now Educate patient Qualifiers: Diabetes mellitus type: type 2 Diabetes mellitus longterm insulin use: without termination clerk use Diabetes mellitus complication status: without complication Qualified Code(s): E11.9 - Type 2 diabetes mellitus without complications - Time Spent With Patient Total time spent is greater than 50% in coordination of care (as documented) at patient's floor/unit and/or counseling patient: - Subjective Interval history: 42 M with Burkitt's lymphoma , on admission for his first cycle of chemo No new complains No evidence of TLS on exam or labs - Constitutional Vitals: Temp Pulse Resp BP Pulse Ox 98.6 F 97 16 136/84 96 07/28/17 11:09 07/28/17 11:09 07/28/17 11:09 07/28/17 11:09 07/28/17 11:09 General appearance: Present: cooperative, A&O X 3, no acute distress, obese - Head Head exam: Present: atraumatic, normocephalic - Eye Eye exam: Present: PERRL, conjuntiva pink, sclera anicteric Pupils: Present: PERRL - Neck Neck exam general surgery: Present: supple, trachea midline. Absent: lymphadenopathy - Respiratory Respiratory exam: Present: CTAB. Absent: accessory muscle use, rales, rhonchi, wheezes - Cardiovascular Cardiovascular exam: Present: RRR, +S1, +S2. Absent: diastolic murmur, gallop, rubs, systolic murmur - GI/Abdominal GI/Abdominal exam: Present: normal bowel sounds, soft, no peritoneal signs. Absent: distended, tenderness - Extremities Exam Extremities exam: Present: warm, radial pulses palpable and symmetrical. Absent : calf tenderness, cyanotic, pedal edema - Neurological Exam Neurological exam: Present: alert, CN II-XII intact, oriented X3, no focal deficits. Absent: pronater drift, facial droop, speech deficit - Skin Skin exam: Present: dry, intact Internal Medicine: Result - Labs CBC & Chem 7: 07/28/17 08:03 07/28/17 04:00 Labs: Short CBC 07/28/17 Range/Units 08:03 WBC 23.4 H (4.3-11.1) K/mcL Hgb 13.5 (12.9-16.9) g/dL Hct 39.3 (37.5-50.1) % Plt Count 222 (140-400) K/mcL Neutrophils # 22.5 H (1.6-8.9) K/mcL BMP 07/28/17 04:00 Sodium 136 Potassium 3.9 Chloride 111 H Carbon Dioxide 25 BUN 18 Creatinine 0.74 Glucose 148 H Calcium 8.8 - Impressions Impressions Chemotherapy Admin, Fluoroscopy Guided 07/25/17 08:01 IMPRESSION: Successful fluoroscopic-guided lumbar puncture and intrathecal injection of chemotherapy agent. D/ / 07/25/2017 14:59:13 Bianka Myers MD / marisa Interpreting Provider: Bianka Myers MD Consult Discharge Plan - Plan Referrals: aLnny Stout, OBSERVER HELPER [Primary Care Provider] -
[2017-07-29] MEDS ORDERED: Methotrexate PFS 25 MG/ML VIAL IT SCH
[2017-07-29] MEDS: Famotidine 20 MG/2 ML VIAL IV PRN (06:41)
[2017-07-29] MEDS: Nicotine 21 MG PATCH.TD24 TD SCH (09:00)
[2017-07-29] MEDS: predniSONE 20 MG TABLET PO SCH ×2 (09:00→17:17)
[2017-07-29] MEDS: Loratadine 10 MG TABLET PO SCH (09:00)
[2017-07-29] MEDS: Insulin LISPRO 300 UNITS/3 ML VIAL SQ SCH ×4 (09:01→20:37)
--- NOTE | 2017-07-29 10:52 | Internal Med Progress Note ---
Date of Encounter: 07/29/17 Time of Encounter: 10:51 - Assessment and plan (1) Burkitts lymphoma Current Visit: Yes Status: Acute Assessment and plan: management per oncology Qualifiers: Lymphoma site: extranodal excluding spleen and other solid organs Qualified Code(s): C83.79 - Burkitt lymphoma, extranodal and solid organ sites (2) GERD (gastroesophageal reflux disease) Current Visit: Yes Status: Chronic Assessment and plan: continue omeprazole, patient is on high dose steroids Qualifiers: Esophagitis presence: with esophagitis Qualified Code(s): K21.0 - Gastro- esophageal reflux disease with esophagitis (3) Obesity Current Visit: Yes Status: Chronic Assessment and plan: lifestyle modification Qualifiers: Obesity type: due to excess calories Obesity classification: adult class 2 (BMI 35 - 39.9) Serious obesity comorbidity presence: without serious comorbidity Body mass index: BMI 36.0-36.9 Qualified Code(s): E66.09 - Other obesity due to excess calories; Z68.36 - Body mass index (BMI) 36.0-36.9, adult; Z68.36 - Body mass index (BMI) 36.0-36.9, adult (4) Tobacco dependence Current Visit: Yes Status: Chronic Assessment and plan: NRT (5) Tachycardia Current Visit: Yes Status: Resolved Assessment and plan: resolved (6) Diabetes mellitus Current Visit: Yes Status: Chronic Assessment and plan: new diagnosis A1C 6.5 Continue sliding scale insulin for now Educate patient DM educator and pipe stem aligner consulted, patient wishes to attempt lifestyle modification Qualifiers: Diabetes mellitus type: type 2 Diabetes mellitus usp insulin use: without usp use Diabetes mellitus complication status: without complication Qualified Code(s): E11.9 - Type 2 diabetes mellitus without complications (7) Leukocytosis Current Visit: Yes Status: Acute Assessment and plan: possibly due to underlying CA Qualifiers: Leukocytosis type: unspecified Qualified Code(s): D72.829 - Elevated white blood cell count, unspecified - Time Spent With Patient Total time spent is greater than 50% in coordination of care (as documented) at patient's floor/unit and/or counseling patient: - Subjective Interval history: 42 M with Burkitt's lymphoma , on admission for his first cycle of chemo No new complains No evidence of TLS on exam or labs He is scheduled for intra-thecal chemo today He denies any new complains and is in good spirits He was educated about his new diagnosis of DM< and wishes to pursue lifestyle modification, first responder will be consulted - Constitutional Vitals: Temp Pulse Resp BP Pulse Ox 97.7 F 81 15 139/91 97 07/29/17 07:16 07/29/17 07:16 07/29/17 07:16 07/29/17 07:16 07/29/17 07:16 General appearance: Present: cooperative, A&O X 3, no acute distress, obese - Head Head exam: Present: atraumatic, normocephalic - Eye Eye exam: Present: PERRL, conjuntiva pink, sclera anicteric Pupils: Present: PERRL - Neck Neck exam general surgery: Present: supple, trachea midline. Absent: lymphadenopathy - Respiratory Respiratory exam: Present: CTAB. Absent: accessory muscle use, rales, rhonchi, wheezes Additional comments: R chest port, clean and dry clear dressing - Cardiovascular Cardiovascular exam: Present: RRR, +S1, +S2. Absent: diastolic murmur, gallop, rubs, systolic murmur - GI/Abdominal GI/Abdominal exam: Present: normal bowel sounds, soft, no peritoneal signs. Absent: distended, tenderness - Extremities Exam Extremities exam: Present: warm, radial pulses palpable and symmetrical. Absent : calf tenderness, cyanotic, pedal edema - Neurological Exam Neurological exam: Present: alert, CN II-XII intact, oriented X3, no focal deficits. Absent: pronater drift, facial droop, speech deficit - Skin Skin exam: Present: dry, intact Internal Medicine: Result - Labs CBC & Chem 7: 07/28/17 08:03 07/28/17 04:00 - Impressions Impressions Chemotherapy Admin, Fluoroscopy Guided 07/25/17 08:01 IMPRESSION: Successful fluoroscopic-guided lumbar puncture and intrathecal injection of chemotherapy agent. D/ / 07/25/2017 14:59:13 Bianka Myers MD / marisa Interpreting Provider: Bianka Myers MD Consult Discharge Plan - Plan Referrals: Lanny Stout, GRANULATOR [Primary Care Provider] -
--- NOTE | 2017-07-29 11:48 | IR Procedure Note ---
Date of procedure: 07/29/17 Consent Obtained: Verbal consent Timeout: Correct patient and procedure verified, Correct site verified, Time out performed, Skin prep completed Local anesthetic: Lidocaine 1% Indications: Lymphoma Procedure Performed: Intrathecal chemo administration Was there an speech language assistant present: No Site/Technique: Intrathecal methotrexate given Results/Findings: Methotrexate administered Estimated blood loss (cc): 0 Complications: None; Tolerated procedure well Post Procedure Treatment Plan: Bedrest x1 hour Specimen: none
[2017-07-29] MEDS: 0.9 % Sodium Chloride 500 ML IVC SCH ×2 (12:55→13:09)
[2017-07-29] MEDS: ETOPOSIDE IV SCH ×2 (12:56→13:13)
[2017-07-29] MEDS: DOXORUBICIN HCL IV SCH ×2 (12:56→13:13)
[2017-07-29] MEDS: VINCRISTINE IV SCH ×2 (12:56→13:13)
[2017-07-29] MEDS: [UNRECOGNIZED DRUG - OTHER] IV SCH ×2 (12:56→13:13)
--- NOTE | 2017-07-29 16:26 | Oncology Inp Progress Note ---
Date of Encounter: 07/29/17 Time of Encounter: 15:00 (1) Burkitts lymphoma Current Visit: Yes Status: Acute Assessment and plan: Clinical stage Iea Burkitt lymphoma involving the stomach. DA-REPOCH with IT MTX (day 1 and day 5 for 4 of the cycles) initiated 07/25/17 as a 96 hour continuous infusion requiring his inpatient admission. He is curative intent. 07/29/2017 He is feeling well today with no physical complaints at this time other than a mild headache. He has not needed any of his PRN supportive medications other than ibuprofen. He is afebrile, his labs are stable. He underwent day 5 IT MTX today, he tolerated well. He did report a very mild beginning feeling of throat tightness at the end of the procedure to the IR nurse, 50 mg IV benadryl was administered and the feeling subsided, he remained stable without complication or overt reaction during/after procedure. He is planned to complete his chemotherapy infusion tomorrow, once complete he is hoping for discharge jayme around 11 am for an event he is wishing to attend. Follow up is already arranged with Dr. Schreiber on Tuesday along with Neulasta administration. Please feel free to contact the oncology team for any further questions or concerns. Qualifiers: Lymphoma site: extranodal excluding spleen and other solid organs Qualified Code(s): C83.79 - Burkitt lymphoma, extranodal and solid organ sites Oncology: Subj Interval history: Mr. Robison is resting comfortably in bed. He denies fevers, chills, pain, SOB, wheezing, chest pain/tightness, mucositis/mouth pain or ulcers, paresthesias or visual changes. He does report a mild headache for which he has been taking ibuprofen for. - Constitutional Vitals: Vital Signs Temp Pulse Resp BP Pulse Ox 07/29/17 14:59 97.9 F 85 17 136/79 96 07/29/17 07:16 97.7 F 81 15 139/91 97 07/29/17 04:42 98.0 F 75 17 111/70 97 07/29/17 00:12 98.1 F 84 16 117/71 95 07/28/17 21:25 98.0 F 86 17 141/82 95 Intake and Output 07/29/17 07/29/17 07/29/17 07:59 15:59 23:59 Intake Total 0 / 0 2117.9 / 2117.9 Output Total 1900 / 1900 2200 / 2200 Balance -1900 / -1900 -82.1 / -82.1 Intake: IV Fluids 1517.9 / 1517.9 Adriamycin 23 MG Etoposide 110 517.9 / 517.9 mg VinCRIStine 0.9 MG In 0.9 % Sodium Chloride Schwertner Bg 500 ML @ 24 mls/hr IV ONCE(ONC) RICH Rx#:[id number] 0.9 % Sodium Chloride 500 ML @ 1000 / 1000 25 mls/hr IVC .Q20H RICH Rx#: [id number] Oral 0 / 0 600 / 600 Output: Urine 1900 / 1900 2200 / 2200 Other: Meal Breakfast Percent of Meal Consumed 100% # Voids 1 Weight 114.3 kg Blood Glucose* 158 202 178 Patient Weight 07/29/17 23:59 Weight 114.3 kg General appearance: cooperative, no acute distress, no febrile Exam: non toxic appearing - Head Head exam: Present: atraumatic - Respiratory Respiratory exam: Present: CTAB. Absent: respiratory distress - Cardiovascular Cardiovascular exam: Present: RRR, +S1, +S2 - GI/Abdominal GI/Abdominal exam: Present: normal bowel sounds, soft. Absent: tenderness - Extremities Exam Extremities exam: Present: normal inspection. Absent: calf tenderness - Neurological Exam Neurological exam: Present: alert, oriented X3, no focal deficits, strengths equal and symetr throughout - Psychiatric Psychiatric exam: Present: normal affect, normal mood - Skin Skin exam: Present: dry, intact, normal color, warm Oncology: Obj Data - Labs CBC & Chem 7: 07/28/17 08:03 07/28/17 04:00 Labs: Laboratory Results - last 24 hr 07/28/17 07/29/17 07/29/17 21:18 07:38 12:19 POC Glucose 307 H 158 H 202 H 07/29/17 16:12 POC Glucose 178 H - Impressions Impressions Chemotherapy Admin, Fluoroscopy Guided 07/29/17 00:00 IMPRESSION: Intrathecal chemotherapy administered. The patient reported some throat tightness following the injection. He was given 50 mg of IV Benadryl and monitored. His symptoms quickly resolved and he remained stable. D/ / 07/29/2017 14:49:50 Abimael Squires MD / marisa Interpreting Provider: Abimael Squires MD Consult Discharge Plan - Plan Referrals: Lanny Stout, BOAT PATCHER PLASTIC [Primary Care Provider] -
[2017-07-29] MEDS: Mag Hydrox/Al Hydrox/Simeth 30 ML UDC PO PRN (17:22)
[2017-07-29] MEDS: Fosaprepitant Dimeglumine 150 MG in 0.9 % Sodium Chloride 250 ML IV SCH (19:28)
[2017-07-30 06:57] LABS: Basophils % 0.1 %; Hematocrit 41.2 % (37.5-50.1); Hemoglobin 14.4 g/dL (12.9-16.9); Lymphocytes # 1.2 K/mcL (0.6-4.6); Mean Corpuscular Hemoglobin 29.6 pg (28.0-33.3); Mean Corpuscular Volume 84.6 fL (83.0-100.0); Mean Platelet Volume 8.9 fL (9.4-12.4); Monocytes # 0.2 K/mcL (0.0-1.3); Monocytes % 1.3 %; Platelet Count 230 K/mcL (140-400); Red Blood Count 4.87 M/mcL (4.19-5.50); Red Cell Distribution Width 11.4 % (11.5-14.5); Segmented Neutrophils % 88.6 %
[2017-07-30 07:07] LABS: BUN/Creatinine Ratio 28 (6-26); Blood Urea Nitrogen 19 mg/dL (6-20); Calcium 8.9 mg/dL (8.6-10.3); Carbon Dioxide 29 mEq/L (23-29); Chloride 104 mEq/L (98-107); Glucose 121 mg/dL (70-105); Osmolality,Calculated 290 (280-300); Potassium 3.8 mEq/L (3.5-5.1); Sodium 138 mEq/L (136-145); eGFR For African Americans > 60 (> 60); eGFR For Non-African Americans > 60 (> 60)
[2017-07-30] MEDS: Loratadine 10 MG TABLET PO SCH (09:00)
[2017-07-30] MEDS: Nicotine 21 MG PATCH.TD24 TD SCH (09:01)
[2017-07-30] MEDS: predniSONE 20 MG TABLET PO SCH (09:03)
[2017-07-30] MEDS: Insulin LISPRO 300 UNITS/3 ML VIAL SQ SCH ×2 (09:03→11:24)
[2017-07-30] MEDS: Mag Hydrox/Al Hydrox/Simeth 30 ML UDC PO PRN (09:18)
[2017-07-30] MEDS ORDERED: methylPREDNISolone 125 MG/2 ML VIAL IVP ONE (09:30)
[2017-07-30] MEDS ORDERED: SODIUM CHLORIDE 0.9% IV SCH (10:00)
[2017-07-30] MEDS ORDERED: CYCLOPHOSPHAMIDE IV SCH (10:00)
[2017-07-30] MEDS: 0.9 % Sodium Chloride 500 ML IVC SCH (10:33)
--- NOTE | 2017-07-30 10:47 | Discharge Summary ---
- NOTES TO OUTPATIENT PROVIDER Notes to Outpatient Provider: Follow-up with oncology on Tuesday. Established PCP for new diagnosis of diabetes mellitus with A1c of 6.5. Follow-up with PCP for monitoring of elevated blood pressure possibly due to high-dose steroids, may need to be initiated on antihypertensive as outpatient. Date of Encounter: 07/30/17 Time of Encounter: 10:44 - Discharge Diagnosis (1) Burkitts lymphoma Priority: Primary Status: Acute Qualifiers: Lymphoma site: extranodal excluding spleen and other solid organs Qualified Code(s): C83.79 - Burkitt lymphoma, extranodal and solid organ sites (2) GERD (gastroesophageal reflux disease) Priority: Secondary Status: Chronic Qualifiers: Esophagitis presence: with esophagitis Qualified Code(s): K21.0 - Gastro- esophageal reflux disease with esophagitis (3) Obesity Priority: Secondary Status: Chronic Qualifiers: Obesity type: due to excess calories Obesity classification: adult class 2 (BMI 35 - 39.9) Serious obesity comorbidity presence: without serious comorbidity Body mass index: BMI 36.0-36.9 Qualified Code(s): E66.09 - Other obesity due to excess calories; Z68.36 - Body mass index (BMI) 36.0-36.9, adult; Z68.36 - Body mass index (BMI) 36.0-36.9, adult (4) Tobacco dependence Priority: Secondary Status: Chronic (5) Tachycardia Priority: Primary Status: Resolved (6) Diabetes mellitus Priority: Secondary Status: Chronic Qualifiers: Diabetes mellitus type: type 2 Diabetes mellitus intermediate teacher insulin use: without intermediate teacher use Diabetes mellitus complication status: without complication Qualified Code(s): E11.9 - Type 2 diabetes mellitus without complications (7) Leukocytosis Priority: Primary Status: Acute Qualifiers: Leukocytosis type: unspecified Qualified Code(s): D72.829 - Elevated white blood cell count, unspecified Hospital course: Mr. Robison is a 42 year old male with medical history of GERD, tobacco abuse, obesity, recently diagnosed Burkitt's lymphoma. The patient was admitted and placed on observation for initiation of chemotherapy. Oncology was on board throughout this admission. Procedure and medication was well tolerated. He received systemic and intrathecal chemotherapy as well as high dose steroids Of note, The patient's blood sugar was noted to be elevated, and A1c was 6.5. This may have been exacerbated by high-dose steroids Follow up with PCP for monitoring of elevatd blood pressure and initiation of medication if persistent Patient wishes to pursue lifestyle modification for diabetes mellitus management. Dietitian and manager photo saw the patient and educated on dietary modification. Plan of care was discussed, verbalizes understanding. >10 min spent on tobacco cessation counselling Discharge discussed with: patient, nurse Time spent discussing smoking cessation with patient: 3 to 10 minutes - Time Spent with Patient Total time spent providing and/or coordinating discharge services: Greater than 30 minutes - Discharge Medications Home Medications: Omeprazole [PriLOSEC] 40 mg PO DAILY 06/29/17 [History] Loratadine [Allergy Relief] 10 mg PO DAILY 07/25/17 [History] Varenicline Tartrate [Chantix Starting Month ] 1 tab PO BID 07/25/17 [History ] Allergies/Adverse Reactions: 3 Allergy/AdvReac Type Severity Reaction Status Date / Time No Known Allergies Allergy Verified 07/25/17 14:03 Date of admission: 07/25/17 10:02 Primary care physician: Lanny Stout CNP Consults: 07/26/17 16:49 Consult to Oncology [CONS] Routine Consulting Provider: On[facility] Reason for Consult: Chemo Call Completed: Yes 07/29/17 10:54 Consult to Diabetes Education [CONS] Routine Comment: Reason for Consult: Newly diagnosed DM consult to physical therapy director [Consult to Nutrition] [CONS] Routine Comment: Consulting Provider: NUTRITION Reason for Dietary Consult: Diet Education Discharging clinician: Javier Toribio Anticipated date of discharge: 07/30/17 - Constitutional Vitals: Temp Pulse Resp BP Pulse Ox 98.3 F 81 18 144/74 98 07/30/17 07:13 07/30/17 07:13 07/30/17 07:13 07/30/17 07:13 07/30/17 07:13 General appearance: Present: cooperative, A&O X 3, no acute distress, obese - Head Head exam: Present: atraumatic, normocephalic - Eye Eye exam: Present: PERRL, conjuntiva pink, sclera anicteric Pupils: Present: PERRL - Neck Neck exam general surgery: Present: supple, trachea midline. Absent: lymphadenopathy - Respiratory Respiratory exam: Present: CTAB. Absent: accessory muscle use, rales, rhonchi, wheezes - Cardiovascular Cardiovascular exam: Present: RRR, +S1, +S2. Absent: diastolic murmur, gallop, rubs, systolic murmur - GI/Abdominal GI/Abdominal exam: Present: normal bowel sounds, soft, no peritoneal signs. Absent: distended, tenderness - Extremities Exam Extremities exam: Present: warm, radial pulses palpable and symmetrical. Absent : calf tenderness, cyanotic, pedal edema - Neurological Exam Neurological exam: Present: alert, CN II-XII intact, oriented X3, no focal deficits. Absent: pronater drift, facial droop, speech deficit - Skin Skin exam: Present: dry, intact - Patient Status Disposition: Home, Self-Care Condition: Fair Functional capacity at discharge: independent ambulation Overall status at discharge: patient is progressing back to baseline - Discharge Instructions Follow Up With: Lanny Stout WEB ART DIRECTOR [Primary Care Provider] - - Diet and Activity Activity: resume usual activities as tolerated Diet: diabetic diet, low salt diet
[2017-07-30 10:49] VITALS: BP 145/91
[2017-07-30] MEDS: [UNRECOGNIZED DRUG - OTHER] IV SCH (11:13)
[2017-07-30] MEDS: ETOPOSIDE IV SCH (11:13)
[2017-07-30] MEDS: VINCRISTINE IV SCH (11:13)
[2017-07-30] MEDS: DOXORUBICIN HCL IV SCH (11:13)
--- NOTE | 2017-07-30 13:41 | Electrocardiograph Report ---
[place] [id number] Test Date: 2017-07-27 Pat Name: Cory Robison Department: 115 Room: 3A48 Gender: M Director [facility]: YVONNE : 1975 Requested By: Javier Toribio Order Number: [id number] Reading MD: Lani Duncan Measurements Intervals [place] Rate: 109 P: 24 MA: 169 QRS: 5 QRSD: 97 T: 29 QT: 311 QTc: 375 Interpretive Statements SINUS TACHYCARDIA ABNORMAL RHYTHM ECG Electronically Signed On 07-30-2017 13:39:58 EDT by Lani Duncan
== END 2017-07-30 13:13 | disposition home or self-care (01) ==
LOC: INTOOBSV 10:02 → 3ANU 10:02 → SUATTDRO 10:02
PROVIDERS: ADMIT Hospitalist; ATTEND Internal Medicine

== ENCOUNTER 2017-08-15 09:35 | Observation (INO) ==
--- NOTE | 2017-08-15 10:26 | Internal Med History&Physical ---
Date of Encounter: 08/15/17 Time of Encounter: 10:22 Internal Medicine - H&P: HPI Admitted From: Home Plans for Post Hospital Care: Home History of present illness: Mr. 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 He got a call on July 01 for pathologic result, of which showing lymphoma is a direct admit to the floor for chemotherapy infusion center by oncology. This is second cycle of chemotherapy and plan to have infusion for almost 5 days. Patient denies abdominal pain, nausea, vomiting, fever, chills, chest pain, shortness of breath, urinary or bowel complaint no lymphadenopathy. He was seen by Dr. Pierre Schreiber for chemotherapy treatment. Patient is a smoker and in the process to quit wearing nicotine patch. Past Med Surg Social Fam HX - Past Medical History Medical history: GERD Psychiatric history: no psych history - Social History Smoking Status: Former smoker Smokeless Tobacco Status: No Alcohol use: none Drug use: none Internal Medicine - H&P: Meds LORazepam [Ativan] 0.5 mg BID PRN 08/15/17 [History] Lisinopril [Zestril] 10 mg DAILY 08/15/17 [History] Pantoprazole Sodium [Protonix] 40 mg PO DAILY 08/15/17 [History] Promethazine [Phenergan] 25 mg Q6HR PRN 08/15/17 [History] Tramadol HCl [Ultram] 50 mg Q8HR PRN 08/15/17 [History] 3 Allergy/AdvReac Type Severity Reaction Status Date / Time No Known Allergies Allergy Verified 08/10/17 10:02 All Systems PM: A 10-system review of systems was performed and is negative for pertinent findings except as documented above in the HPI. - Constitutional Exam: General appearance: No acute distress, A&O X 3 Head exam: Atraumatic Eye exam: EOMI, PERRLA ENT exam: Moist oral mucosa Neck nontender, supple Respiratory exam: Clear to auscultation bilaterally Cardiovascular exam: Regular rate and rhythm, no systolic murmur Abdominal exam: Soft, nontender, nondistended, positive bowel sounds Extremities exam: No calf tenderness, no pedal edema Present: Skin-no rash, warm, dry, intact Neurological exam: Alert, awake, oriented 3, CN II-XII intact, no focal deficits. No facial droop. Normal speech. Normal gait. Romberg sign negative - Assessment and plan (1) Burkitts lymphoma Current Visit: No Status: Chronic Assessment and plan: Second round of chemotherapy is planned by Dr. Schreiber. Continue to follow oncologist ordered. Stable. Qualifiers: Lymphoma site: extranodal excluding spleen and other solid organs Qualified Code(s): C83.79 - Burkitt lymphoma, extranodal and solid organ sites (2) Prediabetes Current Visit: Yes Status: Chronic Assessment and plan: Hyperglycemia therefore Accu-Chek and insulin sliding scale. Diabetic diet. A1c (3) Anxiety about health Current Visit: No Status: Chronic Assessment and plan: Stable. Continue home medicine. (4) Hypertension Current Visit: No Status: Acute Assessment and plan: Close monitoring. Continue home medicine. Qualifiers: Hypertension type: essential hypertension Qualified Code(s): I10 - Essential (primary) hypertension (5) GERD (gastroesophageal reflux disease) Current Visit: No Status: Chronic Assessment and plan: Stable. Continue home medicine. Qualifiers: Esophagitis presence: with esophagitis Qualified Code(s): K21.0 - Gastro- esophageal reflux disease with esophagitis (6) DVT prophylaxis Current Visit: Yes Status: Chronic Assessment and plan: Patient is ambulating well. scd - Time Spent With Patient Total time spent is greater than 50% in coordination of care (as documented) at patient's floor/unit and/or counseling patient: 25 - 35 minutes
[2017-08-15] MEDS ORDERED: Naloxone 0.4 MG/ML INJ IVP PRN (10:50)
[2017-08-15] MEDS ORDERED: D5% in Water 1,000 ML IVC PRN (11:12)
[2017-08-15] MEDS ORDERED: *HR* Dextrose 50 % in Water (Syg) 50 ML SYRINGE IVP PRN (11:12)
[2017-08-15] MEDS ORDERED: Dextrose Gel 15 GM/37.5 ML TUBE PO PRN ×2 (11:12)
[2017-08-15] MEDS ORDERED: Acetaminophen 325 MG TABLET PO SCH (11:30)
[2017-08-15] MEDS: Insulin LISPRO 300 UNITS/3 ML VIAL SQ SCH ×2 (11:49→16:41)
[2017-08-15] MEDS ORDERED: SODIUM CHLORIDE 0.9% IV SCH (12:00)
[2017-08-15] MEDS ORDERED: RITUXIMAB IV SCH (12:00)
[2017-08-15] MEDS ORDERED: Acetaminophen 325 MG TABLET PO ONE (12:05)
[2017-08-15] MEDS ORDERED: methylPREDNISolone 125 MG/2 ML VIAL IVP ONE (12:05)
[2017-08-15] MEDS ORDERED: Dexamethasone 10 MG/ML VIAL IV PRN (12:07)
[2017-08-15] MEDS: methylPREDNISolone 125 MG/2 ML VIAL IVP SCH ×2 (12:18→18:17)
[2017-08-15] MEDS: 0.9 % Sodium Chloride 500 ML IVC SCH (13:01)
[2017-08-15] MEDS ORDERED: Famotidine 20 MG/2 ML VIAL IV PRN (13:58)
[2017-08-15] MEDS ORDERED: *HR* LORazepam 2 MG/ML VIAL IV PRN (14:00)
[2017-08-15] MEDS ORDERED: Prochlorperazine 10 MG/2 ML VIAL IV PRN (14:01)
[2017-08-15] MEDS ORDERED: *HR* Promethazine 25 MG/ML VIAL IV PRN (14:03)
[2017-08-15] MEDS ORDERED: Fosaprepitant Dimeglumine 150 MG in 0.9 % Sodium Chloride 250 ML IV SCH (18:00)
[2017-08-15] MEDS ORDERED: ETOPOSIDE IV SCH (18:30)
[2017-08-15] MEDS ORDERED: VINCRISTINE IV SCH (18:30)
[2017-08-15] MEDS ORDERED: [UNRECOGNIZED DRUG - OTHER] IV SCH (18:30)
[2017-08-15] MEDS ORDERED: DOXORUBICIN HCL IV SCH (18:30)
[2017-08-15] MEDS: *HR* LORazepam 0.5 MG TABLET PO PRN (20:31)
[2017-08-16] MEDS: methylPREDNISolone 125 MG/2 ML VIAL IVP SCH ×2 (06:11→17:36)
[2017-08-16 06:30] LABS: Segmented Neutrophils % 91.6 %
[2017-08-16 06:34] LABS: Basophils # 0.1 K/mcL (0.0-0.2); Basophils % 0.3 %; Hemoglobin 14.9 g/dL (12.9-16.9); Immature Granulocytes % 3.6 % (0-4); Lymphocytes # 1.2 K/mcL (0.6-4.6); Lymphocytes % 3.3 %; Mean Corpuscular HGB Conc 33.9 g/dL (31.6-35.5); Mean Corpuscular Hemoglobin 29.4 pg (28.0-33.3); Mean Corpuscular Volume 86.8 fL (83.0-100.0); Mean Platelet Volume 9.1 fL (9.4-12.4); Monocytes # 0.4 K/mcL (0.0-1.3); Monocytes % 1.2 %; Neutrophils # 33.9 K/mcL (1.6-8.9); Platelet Count 387 K/mcL (140-400); Red Blood Count 5.07 M/mcL (4.19-5.50)
[2017-08-16 06:46] LABS: Platelet Estimate Normal (Normal); Toxic Granulation Present (Not Present)
[2017-08-16 06:53] LABS: BUN/Creatinine Ratio 22 (6-26); Blood Urea Nitrogen 18 mg/dL (6-20); Calcium 9.3 mg/dL (8.6-10.3); Carbon Dioxide 24 mEq/L (23-29); Chloride 105 mEq/L (98-107); Glucose 181 mg/dL (70-105); Osmolality,Calculated 292 (280-300); Potassium 4.1 mEq/L (3.5-5.1); Sodium 138 mEq/L (136-145); eGFR For African Americans > 60 (> 60); eGFR For Non-African Americans > 60 (> 60)
[2017-08-16 06:57] LABS: Estimated Average Glucose 157 mg/dl; Hemoglobin A1C 7.1 %
[2017-08-16] MEDS: Insulin LISPRO 300 UNITS/3 ML VIAL SQ SCH ×3 (08:32→16:46)
[2017-08-16] MEDS: Lisinopril 20 MG TABLET PO SCH (08:33)
[2017-08-16] MEDS: 0.9 % Sodium Chloride 500 ML IVC SCH (08:36)
[2017-08-16] MEDS: Loratadine 10 MG TABLET PO SCH (09:41)
[2017-08-16] MEDS: Nicotine 21 MG PATCH.TD24 TD SCH (09:41)
[2017-08-16] MEDS ORDERED: Methotrexate PFS 25 MG/ML VIAL IT SCH (10:00)
--- NOTE | 2017-08-16 12:46 | Oncology Inp Consult Note ---
<IsidroAlexisleon - Last Filed: 08/16/17 16:58> Date of Encounter: 08/16/17 - Data of Consult Requesting Physician: Barber De Paz Primary Care Provider: Lanny Stout CNP - Consult Narrative History of present illness: I examined this patient and my medical decision-making was reviewed with the Advanced Practice Nurse, Amanda Whitten. I agree with the documented findings, disposition and treatment plan as described except to the extent set forth below. Medications and Allergies LORazepam [Ativan] 0.5 mg BID PRN 08/15/17 [History] Lisinopril [Zestril] 20 mg PO DAILY 08/15/17 [History] Loratadine [Claritin] 10 mg PO DAILY 08/15/17 [History] Nicotine Patch [Nicoderm] 21 mg TP DAILY 08/15/17 [History] Pantoprazole Sodium [Protonix] 40 mg PO DAILY 08/15/17 [History] Promethazine [Phenergan] 25 mg Q6HR PRN 08/15/17 [History] Tramadol HCl [Ultram] 50 mg Q8HR PRN 08/15/17 [History] 3 Allergy/AdvReac Type Severity Reaction Status Date / Time No Known Allergies Allergy Verified 08/15/17 16:56 Oncology - Exam - Constitutional Vitals: Temp Pulse Resp BP Pulse Ox 97.9 F 130 16 126/79 95 08/16/17 14:53 08/16/17 14:53 08/16/17 14:53 08/16/17 14:53 08/16/17 14:53 Oncology - Results Labs: Short CBC 08/16/17 Range/Units 06:07 WBC 37.0 H* D (4.3-11.1) K/mcL Hgb 14.9 (12.9-16.9) g/dL Hct 44.0 (37.5-50.1) % Plt Count 387 (140-400) K/mcL Neutrophils # 33.9 H (1.6-8.9) K/mcL BMP 08/16/17 06:07 Sodium 138 Potassium 4.1 Chloride 105 Carbon Dioxide 24 BUN 18 Creatinine 0.83 Glucose 181 H Calcium 9.3 Consult Discharge Plan - Plan Referrals: Lanny Stout CNP [Primary Care Provider] - <Whitten,Amanda L - Last Filed: 08/17/17 08:58> Date of Encounter: 08/16/17 Time of Encounter: 12:15 Assessment and Plan (1) Burkitts lymphoma Status: Chronic Assessment and plan: Mr. Robison presents for cycle #2 of dose adjusted R-EPOCH. He has just returned from the IR suite for his administration of IT MTX, he is laying flat for the required time following the procedure, he tolerated treatment well. His lovenox was held today for his procedure, he will resume for 08/17 and 08/18 for DVT prophylaxis. He will have his next IT MTX administration this Saturday 08/19. He is planned to finish his Day 1 infusion of Doxorubicin/etoposide/vincristine around 5 pm followed by premedications prior to initiation of Day 2 infusion. He denies pain, mouth sores/pain, nausea, rash, vomiting, diarrhea or rigors. He tolerated therapy initiation well yesterday and has been without any s/s of infusion reaction. He reports constipation and requesting a stool softener. His peripheral neuropathy symptoms are stable. Labs-stable, Leukocytosis as expected secondary to Solumedrol. No fevers/chills. His anxiety and blood pressure are well controlled. Discharge planning: He will plan to discharge on Day 5 (Tuesday) following his cyclophosphamide 1 hr infusion. He will return to the clinic on Tuesday for Neulasta and CBC. He will also return to clinic next for CBC. He will follow up with Dr. Schreiber again as an outpatient prior to Cycle #3 in about 3 weeks time. Oncology will continue to follow patient during his hospital stay. 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 Current therapy includes dose adjusted R-EPOCH with IT MTX initiated 07/25/17. Treatment intent is curative. He is here for cycle 2 of dose adjusted R- EPOCH chemotherapy. Dr. Schreiber has increased his dose by 20% and with a dosage decrease of his Vincristine. 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 He has recently been placed on Ativan for anxiety and had lisinopril dosage increased to 20 mg daily. He had an exacerbation of GERD related symptoms recently, these symptoms resolved by changing his omeprezole to protonix. Past Med Surg Social Fam HX - Past Medical History Medical history: GERD Psychiatric history: no psych history - Social History Smoking Status: Former smoker Smokeless Tobacco Status: No Alcohol use: none Drug use: none Constitutional: Present: fatigue, weakness. Absent: anorexia, chills, fever(s) , headache(s), night sweats, weight loss Additional comments: fatigue and weakness recently improved Eyes: Absent: change in vision Nose, mouth and throat: Present: mouth pain Additional comments: mouth pain now improved with use of biotene Cardiovascular: Absent: chest pain, irregular heart rhythm Respiratory: Absent: cough, dyspnea Gastrointestinal: Present: constipation, dyspepsia, heartburn. Absent: abdominal pain, change in bowel habits, hematemesis, hematochezia, melena, nausea, vomiting Additional comments: denies dysuria Musculoskeletal: Present: numbness (bilateral fingertips), tingling Integumentary: Present: alopecia. Absent: wounds Neurological: Absent: focal weakness, frequent falls Psychiatric: Present: anxiety Hematologic/Lymphatic: Present: as per HPI Oncology - Exam - Constitutional Vitals: Temp Pulse Resp BP Pulse Ox 97.6 F 131 25 145/89 96 08/16/17 10:32 08/16/17 11:33 08/16/17 11:33 08/16/17 11:33 08/16/17 11:33 General appearance: cooperative, no acute distress, no febrile - ENT ENT exam: Present: mucous membranes moist - Respiratory Respiratory exam: Present: CTAB. Absent: respiratory distress - Cardiovascular Cardiovascular exam: Present: RRR, +S1, +S2 - GI/Abdominal GI/Abdominal exam: Present: normal bowel sounds, soft. Absent: tenderness - Extremities Exam Extremities exam: Present: normal inspection. Absent: calf tenderness - Neurological Exam Neurological exam: Present: alert, oriented X3, no focal deficits, strengths equal and symetr throughout - Psychiatric Psychiatric exam: Present: normal affect, normal mood - Skin Skin exam: Present: dry, intact, normal color, warm Oncology - Results Labs: Short CBC 08/16/17 Range/Units 06:07 WBC 37.0 H* D (4.3-11.1) K/mcL Hgb 14.9 (12.9-16.9) g/dL Hct 44.0 (37.5-50.1) % Plt Count 387 (140-400) K/mcL Neutrophils # 33.9 H (1.6-8.9) K/mcL BMP 08/16/17 06:07 Sodium 138 Potassium 4.1 Chloride 105 Carbon Dioxide 24 BUN 18 Creatinine 0.83 Glucose 181 H Calcium 9.3
--- NOTE | 2017-08-16 16:36 | Internal Med Progress Note ---
Date of Encounter: 08/16/17 Time of Encounter: 11:00 - Assessment and plan (1) Burkitts lymphoma Current Visit: No Status: Chronic Assessment and plan: Patient here for cycle 2 of dose adjusted R-EPOCH chemotherapy managed by hematology/oncology Qualifiers: Lymphoma site: extranodal excluding spleen and other solid organs Qualified Code(s): C83.79 - Burkitt lymphoma, extranodal and solid organ sites (2) Hypertension Current Visit: No Status: Acute Assessment and plan: Stable;continue ACEi Qualifiers: Hypertension type: essential hypertension Qualified Code(s): I10 - Essential (primary) hypertension (3) Diabetes mellitus Current Visit: No Status: Chronic Assessment and plan: Hemoglobin A1c 7.1 Continue sliding scale insulin Qualifiers: Diabetes mellitus type: type 2 Diabetes mellitus ocean transportation intermediary insulin use: without mcc use Diabetes mellitus complication status: without complication Qualified Code(s): E11.9 - Type 2 diabetes mellitus without complications (4) GERD (gastroesophageal reflux disease) Current Visit: No Status: Chronic Assessment and plan: Continue PPI Qualifiers: Esophagitis presence: with esophagitis Qualified Code(s): K21.0 - Gastro- esophageal reflux disease with esophagitis (5) DVT prophylaxis Current Visit: Yes Status: Chronic Assessment and plan: Patient is ambulating well. scd - Time Spent With Patient Total time spent is greater than 50% in coordination of care (as documented) at patient's floor/unit and/or counseling patient: - Subjective Interval history: Patient here for cycle 2 of dose adjusted R-EPOCH chemotherapy managed by hematology/oncology Patient with no issues or complaints this morning - Constitutional Vitals: Temp Pulse Resp BP Pulse Ox 97.9 F 130 16 126/79 95 08/16/17 14:53 08/16/17 14:53 08/16/17 14:53 08/16/17 14:53 08/16/17 14:53 General appearance: Present: no acute distress - Respiratory Respiratory exam: Present: CTAB. Absent: accessory muscle use, rales, rhonchi, wheezes - Cardiovascular Cardiovascular exam: Present: RRR, +S1, +S2. Absent: diastolic murmur, gallop, rubs, systolic murmur Internal Medicine: Result - Labs CBC & Chem 7: 08/16/17 06:07 08/16/17 06:07 Labs: Short CBC 08/16/17 Range/Units 06:07 WBC 37.0 H* D (4.3-11.1) K/mcL Hgb 14.9 (12.9-16.9) g/dL Hct 44.0 (37.5-50.1) % Plt Count 387 (140-400) K/mcL Neutrophils # 33.9 H (1.6-8.9) K/mcL BMP 08/16/17 06:07 Sodium 138 Potassium 4.1 Chloride 105 Carbon Dioxide 24 BUN 18 Creatinine 0.83 Glucose 181 H Calcium 9.3 - Impressions Impressions Chemotherapy Admin, Fluoroscopy Guided 08/16/17 08:02 IMPRESSION: Successful fluoroscopic-guided intrathecal chemotherapy administration. D/ / Javon Chavarria MD / Javon Chavarria MD Interpreting Provider: Javon Chavarria MD Consult Discharge Plan - Plan Referrals: Lanny Stout, FIELD SERVICE MANAGER [Primary Care Provider] -
[2017-08-16] MEDS ORDERED: VINCRISTINE IV SCH (17:00)
[2017-08-16] MEDS ORDERED: [UNRECOGNIZED DRUG - OTHER] IV SCH (17:00)
[2017-08-16] MEDS ORDERED: ETOPOSIDE IV SCH (17:00)
[2017-08-16] MEDS ORDERED: DOXORUBICIN HCL IV SCH (17:00)
[2017-08-16] MEDS: traMADol 50 MG TABLET PO PRN (17:36)
[2017-08-16] MEDS: *HR* LORazepam 0.5 MG TABLET PO PRN (18:37)
[2017-08-17] MEDS: methylPREDNISolone 125 MG/2 ML VIAL IVP SCH ×2 (05:18→19:08)
[2017-08-17] MEDS: *HR* Enoxaparin 40 MG/0.4 ML SYRINGE SQ SCH (05:18)
[2017-08-17] MEDS: Lisinopril 20 MG TABLET PO SCH ×2 (09:08→09:41)
[2017-08-17] MEDS: Loratadine 10 MG TABLET PO SCH (09:08)
[2017-08-17] MEDS: Nicotine 21 MG PATCH.TD24 TD SCH (09:09)
[2017-08-17] MEDS: Insulin LISPRO 300 UNITS/3 ML VIAL SQ SCH ×3 (09:19→17:23)
[2017-08-17] MEDS ORDERED: Ketorolac 30 MG/ML VIAL IVP ONE (09:37)
[2017-08-17 11:07] LABS: Basophils % 0.2 %; Mean Corpuscular HGB Conc 34.3 g/dL (31.6-35.5)
[2017-08-17 11:08] LABS: Basophils # 0.1 K/mcL (0.0-0.2); Hematocrit 36.4 % (37.5-50.1); Immature Granulocytes % 2.9 % (0-4); Lymphocytes # 0.5 K/mcL (0.6-4.6); Lymphocytes % 1.5 %; Mean Corpuscular Hemoglobin 29.2 pg (28.0-33.3); Mean Platelet Volume 9.2 fL (9.4-12.4); Monocytes # 0.5 K/mcL (0.0-1.3); Monocytes % 1.5 %; Platelet Count 344 K/mcL (140-400); Red Blood Count 4.28 M/mcL (4.19-5.50); Red Cell Distribution Width 12.4 % (11.5-14.5); Segmented Neutrophils % 93.9 %
[2017-08-17 11:12] LABS: Hemoglobin 12.9 g/dL (12.9-16.9)
[2017-08-17 11:30] LABS: BUN/Creatinine Ratio 25 (6-26); Blood Urea Nitrogen 20 mg/dL (6-20); Calcium 8.7 mg/dL (8.6-10.3); Carbon Dioxide 23 mEq/L (23-29); Chloride 105 mEq/L (98-107); Glucose 318 mg/dL (70-105); Osmolality,Calculated 299 (280-300); Potassium 4.2 mEq/L (3.5-5.1); Sodium 137 mEq/L (136-145); eGFR For African Americans > 60 (> 60); eGFR For Non-African Americans > 60 (> 60)
[2017-08-17 11:36] LABS: Platelet Estimate Normal (Normal)
--- NOTE | 2017-08-17 12:27 | Oncology Inp Progress Note ---
<Amanda Whitten L - Last Filed: 08/17/17 16:37> Date of Encounter: 08/17/17 Time of Encounter: 10:30 (1) Burkitts lymphoma Current Visit: No Status: Chronic Assessment and plan: Mr. Robison is currently receiving cycle #2 of dose adjusted R-EPOCH. He continues to tolerate chemotherapy infusion well without any s/s of infusion reaction. His peripheral neuropathy symptoms are stable. He is fatigued as to be expected. Labs-stable, Leukocytosis as expected secondary to Solumedrol. No fevers/chills. His anxiety and blood pressure are well controlled. Tachycardia noted- likely secondary to IV steroids. Discharge planning: He will plan to discharge on Day 5 (Tuesday) following his cyclophosphamide 1 hr infusion. He will return to the clinic on Tuesday for Neulasta and CBC. He will also return to clinic next for CBC. He will follow up with Dr. Schreiber again as an outpatient prior to Cycle #3 in about 3 weeks time. Oncology will continue to follow patient during his hospital stay. Qualifiers: Lymphoma site: extranodal excluding spleen and other solid organs Qualified Code(s): C83.79 - Burkitt lymphoma, extranodal and solid organ sites (2) Post lumbar puncture headache Current Visit: Yes Status: Acute Assessment and plan: Headache symptoms began yesterday following IT MTX administration and continued through the morning. Headache is exacerbated by sitting up or ambulating. He has been given a one time dose of toradol per primary team. Continue to monitor symptoms over next 24 hours, treat supportively with oral analgesics (3) DVT prophylaxis Current Visit: Yes Status: Chronic Assessment and plan: Hold lovenox on days of IT MTX administration. He will have his next IT MTX administration this Saturday 08/19 Oncology: Subj Interval history: Mr. Robison is resting in bed with his at bedside. He reports a headache that began sometime last evening following his IT MTX. He has received a one time dose of toradol recently to help with his H/A. His H/A pain is worse with sitting up or with ambulation, improved when lying flat. He denies nausea, vomiting, rash, SOB, chest pain, rigors or symptoms related to mucositis. He does report some increase in fatigue as to be expected. - Constitutional Vitals: Vital Signs Temp Pulse Resp BP Pulse Ox 08/17/17 11:24 97.9 F 118 18 119/62 94 08/17/17 07:11 97.7 F 95 18 120/71 95 08/17/17 03:31 97.7 F 95 16 100/61 94 08/16/17 23:30 97.4 F L 96 14 100/62 92 08/16/17 18:00 98.2 F 121 16 115/71 95 08/16/17 14:53 97.9 F 130 16 126/79 95 Intake and Output 08/16/17 08/17/17 08/17/17 23:59 07:59 15:59 Intake Total 0 / 0 0 / 0 240 / 240 Output Total 300 / 300 500 / 500 Balance -300 / -300 -500 / -500 240 / 240 Intake: Oral 0 / 0 0 / 0 240 / 240 Output: Urine 300 / 300 500 / 500 Other: Meal Breakfast Percent of Meal Consumed 100% Stool Size Moderate Stool Consistency formed Stool Color Brown # Voids 1 # Bowel Movements 1 Weight 116.7 kg Blood Glucose* 231 314 Patient Weight 08/17/17 23:59 Weight 116.7 kg General appearance: cooperative, no acute distress, no febrile - Head Head exam: Present: atraumatic - ENT ENT exam: Present: mucous membranes moist - Respiratory Respiratory exam: Present: CTAB. Absent: respiratory distress - Cardiovascular Cardiovascular exam: Present: RRR, +S1, +S2 - GI/Abdominal GI/Abdominal exam: Present: normal bowel sounds, soft. Absent: tenderness - Extremities Exam Extremities exam: Present: normal inspection. Absent: calf tenderness - Neurological Exam Neurological exam: Present: alert, oriented X3, no focal deficits, strengths equal and symetr throughout - Psychiatric Psychiatric exam: Present: normal affect, normal mood - Skin Skin exam: Present: dry, intact, normal color, warm Oncology: Obj Data - Labs CBC & Chem 7: 08/17/17 10:46 08/17/17 10:46 - Impressions Impressions Chemotherapy Admin, Fluoroscopy Guided 08/16/17 08:02 IMPRESSION: Successful fluoroscopic-guided intrathecal chemotherapy administration. D/ / Javon Chavarria MD / Javon Chavarria MD Interpreting Provider: Javon Chavarria MD Consult Discharge Plan - Plan Referrals: [facility] [Other] - 08/22/17 10:15 am (RE:Lanny De La Rosa, RESOURCE CENTER TEACHER [Primary Care Provider] - <Pierre Schreiber - Last Filed: 08/18/17 11:04> Date of Encounter: 08/18/17 - Constitutional Vitals: Vital Signs Temp Pulse Resp BP Pulse Ox 08/18/17 06:00 97.9 F 79 16 126/81 94 08/18/17 03:11 97.8 F 84 15 118/75 92 08/17/17 18:00 98.4 F 116 16 136/90 94 08/17/17 14:59 98.5 F 110 18 118/64 94 08/17/17 11:24 97.9 F 118 18 119/62 94 Intake and Output 08/18/17 08/18/17 08/18/17 00:59 08:59 16:59 Intake Total 760.75 / 760.75 400 / 400 Output Total 525 / 525 1775 / 1775 Balance 235.75 / 235.75 -1375 / -1375 Intake: IV Fluids 520.75 / 520.75 Adriamycin 27 MG Etoposide 135 520.75 / 520.75 mg VinCRIStine 0.5 MG In 0.9 % Sodium Chloride [place] Bg 500 ML @ 24 mls/hr IV ONCE(ONC) [facility] Rx#:[id number] Oral 240 / 240 400 / 400 Output: Urine 525 / 525 1775 / 1775 Other: Meal Dinner Percent of Meal Consumed 100% Weight 116.1 kg Blood Glucose* 229 142 Patient Weight 08/19/17 00:59 Weight 116.1 kg Oncology: Obj Data - Labs CBC & Chem 7: 08/17/17 10:46 08/17/17 10:46 Labs: Laboratory Results - last 24 hr 08/17/17 08/17/17 08/17/17 10:46 10:46 11:34 WBC 34.1 H* RBC 4.28 Hgb 12.9 D Hct 36.4 L MCV 85.0 MCH 29.2 MCHC 34.3 RDW 12.4 Plt Count 344 MPV 9.2 L Immature Gran % 2.9 Seg Neutrophils % 93.9 Lymphocytes % 1.5 Monocytes % 1.5 Eosinophils % 0.0 Basophils % 0.2 Neutrophils # 32.0 H Lymphocytes # 0.5 L Monocytes # 0.5 Eosinophils # 0.0 Basophils # 0.1 Platelet Estimate Normal Sodium 137 Potassium 4.2 Chloride 105 Carbon Dioxide 23 BUN 20 Creatinine 0.81 Est GFR ( Amer) > 60 Est GFR (Non-Af Amer) > 60 BUN/Creatinine Ratio 25 Glucose 318 H POC Glucose 314 H Calculated Osmolality 299 Calcium 8.7 08/17/17 08/17/17 08/18/17 16:40 20:12 07:43 WBC RBC Hgb Hct MCV MCH MCHC RDW Plt Count MPV Immature Gran % Seg Neutrophils % Lymphocytes % Monocytes % Eosinophils % Basophils % Neutrophils # Lymphocytes # Monocytes # Eosinophils # Basophils # Platelet Estimate Sodium Potassium Chloride Carbon Dioxide BUN Creatinine Est GFR ( Amer) Est GFR (Non-Af Amer) BUN/Creatinine Ratio Glucose POC Glucose 225 H 229 H 142 H Calculated Osmolality Calcium - Attending Attestation I examined this patient and my medical decision-making was reviewed with the Advanced Practice Nurse. I agree with the documented findings, disposition and treatment plan as described except to the extent set forth below. Mr. Robison is doing well. He is tolerating therapy very well. He did experience headache from his intrathecal methotrexate. This is improving. Physical exam is normal. He will continue with cycle #2 day 3 of chemotherapy today. Plan for intrathecal methotrexate again on Tuesday for discharge Tuesday evening. Ivette will be scheduled for this coming Tuesday
[2017-08-17] MEDS: 0.9 % Sodium Chloride 500 ML IVC SCH (15:42)
[2017-08-17] MEDS ORDERED: ETOPOSIDE IV SCH (17:00)
[2017-08-17] MEDS ORDERED: [UNRECOGNIZED DRUG - OTHER] IV SCH (17:00)
[2017-08-17] MEDS ORDERED: VINCRISTINE IV SCH (17:00)
[2017-08-17] MEDS ORDERED: DOXORUBICIN HCL IV SCH (17:00)
--- NOTE | 2017-08-17 19:04 | Internal Med Progress Note ---
Date of Encounter: 08/17/17 Time of Encounter: 11:00 - Assessment and plan (1) Burkitts lymphoma Current Visit: No Status: Chronic Assessment and plan: Patient here for cycle 2 of dose adjusted R-EPOCH chemotherapy managed by hematology/oncology Plan to discharge on Day 5 (Tuesday) following his cyclophosphamide 1 hr infusion. Qualifiers: Lymphoma site: extranodal excluding spleen and other solid organs Qualified Code(s): C83.79 - Burkitt lymphoma, extranodal and solid organ sites (2) Hypertension Current Visit: No Status: Acute Assessment and plan: Stable;continue ACEi Qualifiers: Hypertension type: essential hypertension Qualified Code(s): I10 - Essential (primary) hypertension (3) Diabetes mellitus Current Visit: No Status: Chronic Assessment and plan: Hemoglobin A1c 7.1 Continue sliding scale insulin Qualifiers: Diabetes mellitus type: type 2 Diabetes mellitus mcc insulin use: without terminal system operator use Diabetes mellitus complication status: without complication Qualified Code(s): E11.9 - Type 2 diabetes mellitus without complications (4) GERD (gastroesophageal reflux disease) Current Visit: No Status: Chronic Assessment and plan: Continue PPI Qualifiers: Esophagitis presence: with esophagitis Qualified Code(s): K21.0 - Gastro- esophageal reflux disease with esophagitis (5) DVT prophylaxis Current Visit: Yes Status: Chronic Assessment and plan: Patient is ambulating well. scd - Time Spent With Patient Total time spent is greater than 50% in coordination of care (as documented) at patient's floor/unit and/or counseling patient: - Subjective Interval history: Patient here for cycle 2 of dose adjusted R-EPOCH chemotherapy managed by hematology/oncology Patient with no issues or complaints this morning - Constitutional Vitals: Temp Pulse Resp BP Pulse Ox 98.4 F 116 16 136/90 94 08/17/17 18:00 08/17/17 18:00 08/17/17 18:00 08/17/17 18:00 08/17/17 18:00 General appearance: Present: no acute distress - Respiratory Respiratory exam: Present: CTAB. Absent: accessory muscle use, rales, rhonchi, wheezes - Cardiovascular Cardiovascular exam: Present: RRR, +S1, +S2. Absent: diastolic murmur, gallop, rubs, systolic murmur Internal Medicine: Result - Labs CBC & Chem 7: 08/17/17 10:46 08/17/17 10:46 Labs: Short CBC 08/17/17 Range/Units 10:46 WBC 34.1 H* (4.3-11.1) K/mcL Hgb 12.9 D (12.9-16.9) g/dL Hct 36.4 L (37.5-50.1) % Plt Count 344 (140-400) K/mcL Neutrophils # 32.0 H (1.6-8.9) K/mcL BMP 08/17/17 10:46 Sodium 137 Potassium 4.2 Chloride 105 Carbon Dioxide 23 BUN 20 Creatinine 0.81 Glucose 318 H Calcium 8.7 Consult Discharge Plan - Plan Referrals: Lanny Stout, COAL DRIER OPERATOR [Primary Care Provider] -
[2017-08-18] MEDS: methylPREDNISolone 125 MG/2 ML VIAL IVP SCH ×2 (05:13→18:48)
[2017-08-18] MEDS: *HR* Enoxaparin 40 MG/0.4 ML SYRINGE SQ SCH (05:13)
[2017-08-18] MEDS: Loratadine 10 MG TABLET PO SCH (08:48)
[2017-08-18] MEDS: Lisinopril 20 MG TABLET PO SCH (08:48)
[2017-08-18] MEDS: Nicotine 21 MG PATCH.TD24 TD SCH (08:49)
[2017-08-18] MEDS: Insulin LISPRO 300 UNITS/3 ML VIAL SQ SCH ×3 (08:49→16:10)
[2017-08-18] MEDS: traMADol 50 MG TABLET PO PRN (10:09)
--- NOTE | 2017-08-18 11:55 | Oncology Inp Progress Note ---
Date of Encounter: 08/18/17 Time of Encounter: 12:00 (1) Post lumbar puncture headache Current Visit: Yes Status: Acute Assessment and plan: I have ordered dose of IV Phenergan 25 mg, IV Benadryl 25 mg and added [place] to his medication list to aid with his pain. I do not think it is severe enough for blood patch. 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 No dose adjustment is indicated. He will receive intrathecal methotrexate tomorrow. He may be discharged tomorrow night upon completion of his chemotherapy. I have arranged for Neulasta on Tuesday. He will see me in 2-1/2 weeks prior to cycle #3. Qualifiers: Lymphoma site: extranodal excluding spleen and other solid organs Qualified Code(s): C83.79 - Burkitt lymphoma, extranodal and solid organ sites Oncology: Subj Interval history: He is receiving day 4 of therapy. Headache resolved overnight, recurred this AM. Worse with upright position. No nausea, vomiting or diarrhea. No fever or chills. Moving his boels, but a bit firm. - Constitutional Vitals: Vital Signs Temp Pulse Resp BP Pulse Ox 08/18/17 11:44 98.3 F 100 14 139/83 95 08/18/17 06:00 97.9 F 79 16 126/81 94 08/18/17 03:11 97.8 F 84 15 118/75 92 08/17/17 18:00 98.4 F 116 16 136/90 94 08/17/17 14:59 98.5 F 110 18 118/64 94 Intake and Output 08/18/17 08/18/17 08/18/17 00:59 08:59 16:59 Intake Total 760.75 / 760.75 400 / 400 Output Total 525 / 525 1775 / 1775 Balance 235.75 / 235.75 -1375 / -1375 Intake: IV Fluids 520.75 / 520.75 Adriamycin 27 MG Etoposide 135 520.75 / 520.75 mg VinCRIStine 0.5 MG In 0.9 % Sodium Chloride Kellogg Bg 500 ML @ 24 mls/hr IV ONCE(ONC) RICH Rx#:[id number] Oral 240 / 240 400 / 400 Output: Urine 525 / 525 1775 / 1775 Other: Meal Dinner Percent of Meal Consumed 100% Weight 116.1 kg Blood Glucose* 229 142 300 Patient Weight 08/19/17 00:59 Weight 116.1 kg General appearance: cooperative, no acute distress - Head Head exam: Present: atraumatic, normal inspection, normocephalic - Eye Eye exam: Present: normal appearance, conjuntiva pink, sclera anicteric - ENT ENT exam: Present: mucous membranes moist, normal exam, normal oropharynx - Neck Neck exam: Present: full ROM, normal inspection - Respiratory Respiratory exam: Present: CTAB - Cardiovascular Cardiovascular exam: Present: tachycardia - GI/Abdominal GI/Abdominal exam: Present: normal bowel sounds, soft - Extremities Exam Extremities exam: Present: normal inspection - Neurological Exam Neurological exam: Present: alert, CN II-XII intact, normal gait, no focal deficits - Skin Skin exam: Present: normal color Oncology: Obj Data - Labs CBC & Chem 7: 08/17/17 10:46 08/17/17 10:46 Labs: Laboratory Results - last 24 hr 08/17/17 08/17/17 08/17/17 11:34 16:40 20:12 POC Glucose 314 H 225 H 229 H 08/18/17 07:43 POC Glucose 142 H Consult Discharge Plan - Plan Referrals: [facility] [Other] - 08/22/17 10:15 am (RE:Lanny De La Rosa, LOADING AND UNLOADING SUPERVISOR [Primary Care Provider] -
[2017-08-18] MEDS: 0.9 % Sodium Chloride 500 ML IVC SCH (12:06)
[2017-08-18] MEDS ORDERED: *HR* HYDROcodone/Acet 5/325 mg TABLET PO PRN (12:21)
[2017-08-18] MEDS ORDERED: ETOPOSIDE IV SCH (17:00)
[2017-08-18] MEDS ORDERED: [UNRECOGNIZED DRUG - OTHER] IV SCH (17:00)
[2017-08-18] MEDS ORDERED: VINCRISTINE IV SCH (17:00)
[2017-08-18] MEDS ORDERED: DOXORUBICIN HCL IV SCH (17:00)
--- NOTE | 2017-08-18 18:29 | Discharge Summary ---
- NOTES TO OUTPATIENT PROVIDER Notes to Outpatient Provider: Hematology oncology has arranged for Neulasta on Tuesday and will follow up in 2-1/2 weeks prior to cycle #3. Orders not resulted at time of discharge: Pending orders 08/19/17 08:03 IR chemo fleet sales manager (intrathecal)w lp [IR] Routine Date of Encounter: 08/18/17 Time of Encounter: 11:00 - Discharge Diagnosis (1) Burkitts lymphoma Priority: Primary Status: Chronic Qualifiers: Lymphoma site: extranodal excluding spleen and other solid organs Qualified Code(s): C83.79 - Burkitt lymphoma, extranodal and solid organ sites (2) Hypertension Priority: Secondary Status: Acute Qualifiers: Hypertension type: essential hypertension Qualified Code(s): I10 - Essential (primary) hypertension (3) Diabetes mellitus Priority: Secondary Status: Chronic Qualifiers: Diabetes mellitus type: type 2 Diabetes mellitus skilled nursing insulin use: without skilled nursing use Diabetes mellitus complication status: without complication Qualified Code(s): E11.9 - Type 2 diabetes mellitus without complications (4) GERD (gastroesophageal reflux disease) Priority: Secondary Status: Chronic Qualifiers: Esophagitis presence: with esophagitis Qualified Code(s): K21.0 - Gastro- esophageal reflux disease with esophagitis Hospital course: Patient is a 42-year-old male with past medical history significant for Burkitt' s lymphoma on chemotherapy, hypertension and diabetes due to chronic a steroid who was a direct admit to the floor on 08/15/17 for chemotherapy infusion center by oncology. This is second cycle of chemotherapy and plan to have infusion for almost 5 days. During patients hospital stay he completed cycle 2 of a 5 day course and also received an intrathecal methotrexate. Hematology oncology has arranged for Neulasta on Tuesday and will follow up in 2- 1/2 weeks prior to cycle #3. Discharge discussed with: patient - Time Spent with Patient Total time spent providing and/or coordinating discharge services: Less than 30 minutes - Discharge Medications Home Medications: LORazepam [Ativan] 0.5 mg BID PRN 08/15/17 [History] Lisinopril [Zestril] 20 mg PO DAILY 08/15/17 [History] Loratadine [Claritin] 10 mg PO DAILY 08/15/17 [History] Nicotine Patch [Nicoderm] 21 mg TP DAILY 08/15/17 [History] Pantoprazole Sodium [Protonix] 40 mg PO DAILY 08/15/17 [History] Promethazine [Phenergan] 25 mg Q6HR PRN 08/15/17 [History] Tramadol HCl [Ultram] 50 mg Q8HR PRN 08/15/17 [History] Allergies/Adverse Reactions: 3 Allergy/AdvReac Type Severity Reaction Status Date / Time No Known Allergies Allergy Verified 08/15/17 16:56 Date of admission: 08/15/17 09:47 Primary care physician: Lanny Stout CNP - Constitutional Vitals: Temp Pulse Resp BP Pulse Ox 98.5 F 105 16 130/69 95 08/18/17 15:57 08/18/17 15:57 08/18/17 15:57 08/18/17 15:57 08/18/17 15:57 General appearance: Present: no acute distress - Respiratory Respiratory exam: Present: CTAB. Absent: accessory muscle use, rales, rhonchi, wheezes - Cardiovascular Cardiovascular exam: Present: RRR, +S1, +S2. Absent: diastolic murmur, gallop, rubs, systolic murmur - Patient Status Disposition: Home, Self-Care - Discharge Instructions Follow Up With: [facility] [Other] - 08/22/17 10:15 am (RE:Lanny De La Rosa CNP [Primary Care Provider] -
[2017-08-19] MEDS: 0.9 % Sodium Chloride 500 ML IVC SCH (05:29)
[2017-08-19] MEDS: methylPREDNISolone 125 MG/2 ML VIAL IVP SCH ×2 (05:40→18:55)
[2017-08-19] MEDS ORDERED: Methotrexate PFS 25 MG/ML VIAL IT SCH (08:30)
[2017-08-19] MEDS: Lisinopril 20 MG TABLET PO SCH (09:15)
[2017-08-19] MEDS: *HR* LORazepam 0.5 MG TABLET PO PRN ×2 (09:15→21:31)
[2017-08-19] MEDS: Loratadine 10 MG TABLET PO SCH (09:15)
[2017-08-19] MEDS: Nicotine 21 MG PATCH.TD24 TD SCH (09:16)
[2017-08-19] MEDS: Insulin LISPRO 300 UNITS/3 ML VIAL SQ SCH ×2 (09:17→12:39)
--- NOTE | 2017-08-19 09:28 | Oncology Inp Progress Note ---
<Amanda Whitten L - Last Filed: 08/19/17 17:39> Date of Encounter: 08/19/17 Time of Encounter: 09:28 (1) Burkitts lymphoma Current Visit: No Status: Chronic Assessment and plan: Mr. Robison is currently receiving cycle #2 of dose adjusted R-EPOCH. He continues to tolerate chemotherapy infusion well. His peripheral neuropathy symptoms are stable. He is fatigued as to be expected, reports headache as discussed below. He otherwise, has no complaints. Today, he is planned to finish day 4 Doxorubicin/etoposide/vincristine followed with cyclophosphamide. His IT MTX was cancelled today due to spinal headache. Dr. Schreiber will plan to likely add on in later cycle. Discharge planning: He will return to the clinic on Tuesday for Neulasta and CBC. He will also return to clinic next for CBC. He will follow up with Dr. Schreiber again as an outpatient prior to Cycle #3 in about 3 weeks time, any further dose adjustments needed will be decided at that time. Qualifiers: Lymphoma site: extranodal excluding spleen and other solid organs Qualified Code(s): C83.79 - Burkitt lymphoma, extranodal and solid organ sites (2) Post lumbar puncture headache Current Visit: Yes Status: Acute Assessment and plan: Headache is exacerbated by sitting up or ambulating. Continue to monitor symptoms and treat supportively with oral medications. Appears to be mild in nature and pain is not worsening although frustrating for patient. Given the stability and mild nature of symptoms, would not recommend blood patch unless symptoms worsen or become severe. Update- H/A improving per patient upon afternoon rounding. Please refer to Dr. Schreiber's attestation below for additional details Oncology: Subj Interval history: Mr. Robison appears quite anxious this morning regarding the plan for the day and his discharge home. He continues to report mild and stable headache which worsens with standing or any ambulation. This has become a frustrating side effect of his treatment for him as he feels limited on the extent to which he can ambulate. He denies pain or any other new symptoms. No nausea, vomiting, dizziness, visual changes. - Constitutional Vitals: Vital Signs Temp Pulse Resp BP Pulse Ox 08/19/17 07:56 97.9 F 83 16 132/58 96 08/19/17 04:22 98.2 F 88 14 117/72 95 08/18/17 18:39 98.4 F 101 14 138/81 94 08/18/17 15:57 98.5 F 105 16 130/69 95 08/18/17 11:44 98.3 F 100 14 139/83 95 Intake and Output 08/18/17 08/19/17 08/19/17 23:59 07:59 15:59 Intake Total 970 / 970 Output Total 1000 / 1000 400 / 400 Balance -1000 / -1000 570 / 570 Intake: IV Fluids 500 / 500 0.9 % Sodium Chloride 500 ML @ 500 / 500 25 mls/hr IVC .Q20H RICH Rx#: [id number] Oral 470 / 470 Output: Urine 1000 / 1000 400 / 400 Other: Meal Dinner Percent of Meal Consumed 100% # Bowel Movements 0 0 Weight 117.8 kg Blood Glucose* 229 139 Patient Weight 08/19/17 23:59 Weight 117.8 kg General appearance: cooperative, no acute distress, no febrile - Head Head exam: Present: atraumatic - ENT ENT exam: Present: mucous membranes moist - Respiratory Respiratory exam: Present: CTAB. Absent: respiratory distress - Cardiovascular Cardiovascular exam: Present: RRR, +S1, +S2 - GI/Abdominal GI/Abdominal exam: Present: normal bowel sounds, soft. Absent: tenderness - Extremities Exam Extremities exam: Present: normal inspection. Absent: calf tenderness - Neurological Exam Neurological exam: Present: alert, oriented X3, no focal deficits, strengths equal and symetr throughout - Psychiatric Psychiatric exam: Present: normal affect, normal mood - Skin Skin exam: Present: dry, intact, normal color, warm Oncology: Obj Data - Labs CBC & Chem 7: 08/17/17 10:46 08/17/17 10:46 Labs: Laboratory Results - last 24 hr 08/18/17 08/18/17 08/18/17 11:35 15:14 20:35 POC Glucose 300 H 267 H 299 H 08/19/17 07:58 POC Glucose 139 H Consult Discharge Plan - Plan Referrals: [facility] [Other] - 08/22/17 10:15 am (RE:[facility]) Lanny Stout, SUPERVISOR ASSEMBLY STOCK [Primary Care Provider] - <Pierre Schreiber - Last Filed: 08/19/17 21:26> Date of Encounter: 08/19/17 (1) Post lumbar puncture headache Current Visit: Yes Status: Acute (2) Burkitts lymphoma Current Visit: 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: Chronic Qualifiers: Lymphoma site: extranodal excluding spleen and other solid organs Qualified Code(s): C83.79 - Burkitt lymphoma, extranodal and solid organ sites - Constitutional Vitals: Vital Signs Temp Pulse Resp BP Pulse Ox 08/19/17 21:20 98 F 83 18 160/95 97 08/19/17 19:43 97.7 F 91 14 143/89 96 08/19/17 11:39 98.2 F 93 16 137/86 96 08/19/17 07:56 97.9 F 83 16 132/58 96 08/19/17 04:22 98.2 F 88 14 117/72 95 Intake and Output 08/19/17 08/19/17 08/20/17 08:59 16:59 00:59 Intake Total 970 / 970 480 / 480 1320.75 / 1320.75 Output Total 400 / 400 700 / 700 1000 / 1000 Balance 570 / 570 -220 / -220 320.75 / 320.75 Intake: IV Fluids 500 / 500 520.75 / 520.75 Adriamycin 27 MG Etoposide 135 520.75 / 520.75 mg VinCRIStine 0.5 MG In 0.9 % Sodium Chloride Russell Bg 500 ML @ 24 mls/hr IV ONCE(ONC) RICH Rx#:[id number] 0.9 % Sodium Chloride 500 ML @ 500 / 500 25 mls/hr IVC .Q20H RICH Rx#: [id number] Oral 470 / 470 480 / 480 800 / 800 Output: Urine 400 / 400 700 / 700 1000 / 1000 Other: Meal Lunch Dinner Percent of Meal Consumed 100% 0% # Voids 1 # Bowel Movements 0 0 Weight 117.8 kg Blood Glucose* 139 317 Patient Weight 08/20/17 00:59 Weight 117.8 kg Oncology: Obj Data - Labs CBC & Chem 7: 08/17/17 10:46 08/17/17 10:46 Labs: Laboratory Results - last 24 hr 08/18/17 08/18/17 08/19/17 11:35 15:14 07:58 POC Glucose 300 H 267 H 139 H 08/19/17 11:41 POC Glucose 317 H - Attending Attestation I examined this patient and my medical decision-making was reviewed with the Advanced Practice Nurse. I agree with the documented findings, disposition and treatment plan as described except to the extent set forth below. Headache has resolved. IR did not perform LP with IT MTX today. This was not d/w me. He may be d/c to home tonight with Neulasta on Tuesday. We will readdress IT MTX with cycle #3. Will not pursue on Tuesday.
[2017-08-19] MEDS ORDERED: SODIUM CHLORIDE 0.9% IV SCH (17:00)
[2017-08-19] MEDS ORDERED: CYCLOPHOSPHAMIDE IV SCH (17:00)
--- NOTE | 2017-08-19 19:03 | Internal Med Progress Note ---
Date of Encounter: 08/19/17 Time of Encounter: 11:00 - Assessment and plan (1) Burkitts lymphoma Current Visit: No Status: Chronic Assessment and plan: Patient here for cycle 2 of dose adjusted R-EPOCH chemotherapy managed by hematology/oncology Plan to discharge on Day 5 (today) following his cyclophosphamide 1 hr infusion. Qualifiers: Lymphoma site: extranodal excluding spleen and other solid organs Qualified Code(s): C83.79 - Burkitt lymphoma, extranodal and solid organ sites - Time Spent With Patient Total time spent is greater than 50% in coordination of care (as documented) at patient's floor/unit and/or counseling patient: - Subjective Interval history: Patient to be discharged after completing chemotherapy treatment this afternoon - Constitutional Vitals: Temp Pulse Resp BP Pulse Ox 98.2 F 93 16 137/86 96 08/19/17 11:39 08/19/17 11:39 08/19/17 11:39 08/19/17 11:39 08/19/17 11:39 General appearance: Present: A&O X 3, no acute distress, answers questions appropriately Internal Medicine: Result - Labs CBC & Chem 7: 08/17/17 10:46 08/17/17 10:46 Consult Discharge Plan - Plan Referrals: [facility] [Other] - 08/22/17 10:15 am (RE:Lanny De La Rosa, PROGRAM TRAINER [Primary Care Provider] -
[2017-08-19 21:53] VITALS: BP 142/92
== END 2017-08-19 22:40 | disposition home or self-care (01) ==
LOC: 3ANU → SUATTDRO 09:47
PROVIDERS: ADMIT Pediatrics; ATTEND Hospitalist

== ENCOUNTER 2017-09-26 10:19 | Observation (INO) ==
--- NOTE | 2017-10-03 10:31 | Internal Med History&Physical ---
Date of Encounter: 10/03/17 Time of Encounter: 10:28 Internal Medicine - H&P: HPI Chief complaint: chemotherAPY Admitted From: Direct Admit Plans for Post Hospital Care: Home History of present illness: Mr. Robison is a 42 year old male Patient is a direct admission from oncology office for for cycle of chemotherapy. Patient has history of Burkitt's lymphoma, hypertension, GERD, and obesity patient WASl recently admitted for chemotherapy but developed a ruptured diverticulum: Treated medically without surgical intervention which is now completely resolved patient has now been readmitted for chemotherapy cycle from today until Tuesday. He is not having any symptoms no abdominal pain no shortness of breath or chest pain. Chemotherapy regimen will be taken care of by the oncologist Past Med Surg Social Fam HX - Past Medical History Medical history: GERD, hypertension Psychiatric history: anxiety - Past Surgical History Surgical History: non-contributory Additional surgical history: tumor removed from eye - Social History Smoking Status: Former smoker Smokeless Tobacco Status: No Alcohol use: none Drug use: none - Family History Mother Hx Family Endocrine Disorder: Yes (Diabetes) Internal Medicine - H&P: Meds Loratadine [Claritin] 10 mg PO DAILY 08/15/17 [History] Nicotine Patch [Nicoderm] 21 mg TP DAILY 08/15/17 [History] Promethazine [Phenergan] 25 mg Q6HR PRN 08/15/17 [History] Tramadol HCl [Ultram] 50 mg Q8HR PRN 08/15/17 [History] LORazepam [Ativan] 0.5 mg PO BID PRN 30 Days #60 tablet 08/30/17 [Rx] Docusate [Colace] 200 mg PO DAILY 10/03/17 [History] Lisinopril [Zestril] 10 mg PO DAILY #30 tablet 10/03/17 [Rx] Pantoprazole Sodium [Protonix] 40 mg PO DAILY #30 tablet. 10/03/17 [Rx] Polyethylene Glycol 3350 [MiraLAX] 17 gm PO DAILY 10/03/17 [History] 3 Allergy/AdvReac Type Severity Reaction Status Date / Time No Known Allergies Allergy Verified 10/03/17 08:37 All Systems PM: A 10-system review of systems was performed and is negative for pertinent findings except as documented above in the HPI. - Constitutional Vitals: Temp Pulse Resp BP Pulse Ox 98.2 F 93 16 116/79 95 10/03/17 10:05 10/03/17 10:05 10/03/17 10:05 10/03/17 10:05 10/03/17 10:05 - Head Head exam: Present: atraumatic, normocephalic - Eye Eye exam: Present: PERRL, conjuntiva pink, sclera anicteric Pupils: Present: PERRL - Neck Neck exam general surgery: Present: supple, trachea midline. Absent: lymphadenopathy - Respiratory Respiratory exam: Present: CTAB. Absent: accessory muscle use, rales, rhonchi, wheezes - Cardiovascular Cardiovascular exam: Present: RRR, +S1, +S2. Absent: diastolic murmur, gallop, rubs, systolic murmur - GI/Abdominal GI/Abdominal exam: Present: normal bowel sounds, soft, no peritoneal signs. Absent: distended, tenderness - Extremities Exam Extremities exam: Present: warm, radial pulses palpable and symmetrical. Absent : calf tenderness, cyanotic, pedal edema - Neurological Exam Neurological exam: Present: CN II-XII intact, oriented X3, no focal deficits. Absent: pronater drift, facial droop, speech deficit - Skin Skin exam: Present: dry, intact - Assessment and plan (2) Burkitts lymphoma Current Visit: No Status: Chronic Assessment and plan: resume for readmission for chemotherapeutic cycle starting to Tuesday Qualifiers: Lymphoma site: extranodal excluding spleen and other solid organs Qualified Code(s): C83.79 - Burkitt lymphoma, extranodal and solid organ sites (3) Diabetes mellitus Current Visit: No Status: Chronic Assessment and plan: Chronic we will resume home medication and place on sliding scale Qualifiers: Diabetes mellitus type: type 2 Diabetes mellitus bed bug exterminator insulin use: without bed bug exterminator use Diabetes mellitus complication status: without complication Qualified Code(s): E11.9 - Type 2 diabetes mellitus without complications (4) GERD (gastroesophageal reflux disease) Current Visit: No Status: Chronic Assessment and plan: Chronic resume home medication Qualifiers: Esophagitis presence: with esophagitis Qualified Code(s): K21.0 - Gastro- esophageal reflux disease with esophagitis (5) Hypertension Current Visit: No Status: Chronic Assessment and plan: Chronic resume home medication Qualifiers: Hypertension type: essential hypertension Qualified Code(s): I10 - Essential (primary) hypertension (6) Tobacco dependence Current Visit: No Status: Chronic Assessment and plan: Chronic - Time Spent With Patient Total time spent is greater than 50% in coordination of care (as documented) at patient's floor/unit and/or counseling patient:
[2017-10-03] MEDS ORDERED: Acetaminophen 325 MG TABLET PO PRN (10:39)
[2017-10-03] MEDS ORDERED: Naloxone 0.4 MG/ML INJ IVP PRN (10:39)
[2017-10-03] MEDS ORDERED: traMADol 50 MG TABLET PO PRN (10:39)
[2017-10-03] MEDS ORDERED: *HR* LORazepam 0.5 MG TABLET PO PRN (10:42)
[2017-10-03] MEDS ORDERED: 0.9 % Sodium Chloride 1,000 ML IVC SCH (10:45)
[2017-10-03] MEDS ORDERED: RITUXIMAB IV SCH (11:00)
[2017-10-03] MEDS ORDERED: SODIUM CHLORIDE 0.9% IV SCH (11:00)
[2017-10-03] MEDS: methylPREDNISolone 125 MG/2 ML VIAL IVP SCH (11:01)
[2017-10-03] MEDS ORDERED: Famotidine 20 MG/2 ML VIAL IV PRN (11:17)
[2017-10-03] MEDS ORDERED: *HR* LORazepam 2 MG/ML VIAL IV PRN (11:18)
[2017-10-03] MEDS ORDERED: Prochlorperazine 10 MG/2 ML VIAL IV PRN (11:18)
[2017-10-03] MEDS ORDERED: *HR* Promethazine 25 MG/ML VIAL IV PRN (11:19)
[2017-10-03] MEDS ORDERED: Dexamethasone 10 MG/ML VIAL IV PRN (11:19)
[2017-10-03] MEDS ORDERED: Acetaminophen 325 MG TABLET PO ONE (11:30)
[2017-10-03] MEDS: 0.9 % Sodium Chloride 500 ML IVC SCH (13:23)
[2017-10-03] MEDS ORDERED: Fosaprepitant Dimeglumine 150 MG in 0.9 % Sodium Chloride 250 ML IV SCH (14:30)
[2017-10-03] MEDS ORDERED: VINCRISTINE IV SCH (15:00)
[2017-10-03] MEDS ORDERED: DOXORUBICIN HCL IV SCH (15:00)
[2017-10-03] MEDS ORDERED: [UNRECOGNIZED DRUG - OTHER] IV SCH (15:00)
[2017-10-03] MEDS ORDERED: ETOPOSIDE IV SCH (15:00)
[2017-10-04] MEDS ORDERED: Methotrexate PFS 25 MG/ML VIAL IT SCH
[2017-10-04 03:59] LABS: Hematocrit 34.4 % (37.5-50.1); Hemoglobin 11.6 g/dL (12.9-16.9); Mean Corpuscular HGB Conc 33.7 g/dL (31.6-35.5); Mean Corpuscular Hemoglobin 29.6 pg (28.0-33.3); Mean Corpuscular Volume 87.8 fL (83.0-100.0); Mean Platelet Volume 8.7 fL (9.4-12.4); Platelet Count 239 K/mcL (140-400); Red Blood Count 3.92 M/mcL (4.19-5.50); Red Cell Distribution Width 14.8 % (11.5-14.5)
[2017-10-04 04:16] LABS: Alanine Aminotransferase 14 Units/L (7-52); Albumin 3.9 g/dL (3.5-5.7); Albumin/Globulin Ratio 1.9 (1.1-2.2); Alkaline Phosphatase 86 Units/L (34-104); Aspartate Amino Transferase 10 Units/L (13-39); BUN/Creatinine Ratio 19 (6-26); Bilirubin,Total 0.5 mg/dL (0.3-1.0); Blood Urea Nitrogen 13 mg/dL (6-20); Calcium 9.1 mg/dL (8.6-10.3); Carbon Dioxide 19 mEq/L (23-29); Chloride 109 mEq/L (98-107); Chol/HDL Ratio 4.5 (0-4.9); Cholesterol 209 mg/dL (< 200); Globulin 2.1 g/dL (2.4-3.5); Glucose 135 mg/dL (70-105); HDL Cholesterol 46 mg/dL (40-59); LDL Cholesterol,Calculated 152 mg/dL (0-99); Osmolality,Calculated 288 (280-300); Potassium 4.4 mEq/L (3.5-5.1); Sodium 138 mEq/L (136-145); Triglycerides 53 mg/dL (< 150); eGFR For African Americans > 60 (> 60); eGFR For Non-African Americans > 60 (> 60)
[2017-10-04] MEDS ORDERED: *HR* Enoxaparin 40 MG/0.4 ML SYRINGE SQ SCH (06:00)
[2017-10-04] MEDS ORDERED: D5% in Water 1,000 ML IVC PRN (08:41)
[2017-10-04] MEDS ORDERED: Dextrose Gel 15 GM/37.5 ML TUBE PO PRN ×2 (08:41)
[2017-10-04] MEDS ORDERED: *HR* Dextrose 50 % in Water (Syg) 50 ML SYRINGE IVP PRN (08:41)
[2017-10-04] MEDS: Loratadine 10 MG TABLET PO SCH (09:38)
[2017-10-04] MEDS: methylPREDNISolone 125 MG/2 ML VIAL IVP SCH (09:39)
[2017-10-04] MEDS: Nicotine 21 MG PATCH.TD24 TP SCH (09:39)
[2017-10-04] MEDS: Insulin LISPRO 300 UNITS/3 ML VIAL SQ SCH ×3 (11:40→21:55)
--- NOTE | 2017-10-04 13:59 | Internal Med Progress Note ---
Date of Encounter: 10/04/17 Time of Encounter: 13:59 - Assessment and plan (1) Burkitts lymphoma Current Visit: Yes Status: Chronic Assessment and plan: admitted for chemo, management per onc Qualifiers: Lymphoma site: extranodal excluding spleen and other solid organs Qualified Code(s): C83.79 - Burkitt lymphoma, extranodal and solid organ sites (2) Diabetes mellitus Current Visit: Yes Status: Chronic Assessment and plan: continue sliding scale Qualifiers: Diabetes mellitus type: type 2 Diabetes mellitus detention insulin use: without automated weaver use Diabetes mellitus complication status: without complication Qualified Code(s): E11.9 - Type 2 diabetes mellitus without complications (3) DVT prophylaxis Current Visit: Yes Status: Acute Assessment and plan: heparin SQ-lovenox (4) GERD (gastroesophageal reflux disease) Current Visit: Yes Status: Chronic Assessment and plan: continue omeprazole Qualifiers: Esophagitis presence: with esophagitis Qualified Code(s): K21.0 - Gastro- esophageal reflux disease with esophagitis (5) Hypertension Current Visit: Yes Status: Chronic Assessment and plan: continue home meds Qualifiers: Hypertension type: essential hypertension Qualified Code(s): I10 - Essential (primary) hypertension (6) Leukocytosis Current Visit: Yes Status: Acute Assessment and plan: possibly due to steroids and underlying lymphoma continue to monitor Qualifiers: Leukocytosis type: unspecified Qualified Code(s): D72.829 - Elevated white blood cell count, unspecified (7) Obesity Current Visit: Yes Status: Chronic Assessment and plan: encourage weight loss Qualifiers: Obesity type: due to excess calories Obesity classification: adult class 2 (BMI 35 - 39.9) Serious obesity comorbidity presence: without serious comorbidity Body mass index: BMI 36.0-36.9 Qualified Code(s): E66.09 - Other obesity due to excess calories; Z68.36 - Body mass index (BMI) 36.0-36.9, adult - Time Spent With Patient Total time spent is greater than 50% in coordination of care (as documented) at patient's floor/unit and/or counseling patient: - Subjective Interval history: Seen Going to get his intra-thecal chemo at IR No new complains - Constitutional Vitals: Temp Pulse Resp BP Pulse Ox 97.8 F 84 14 122/76 97 10/04/17 11:41 10/04/17 11:41 10/04/17 11:41 10/04/17 11:41 10/04/17 11:41 General appearance: Present: A&O X 3, pleasant, no acute distress, obese - Head Head exam: Present: atraumatic, normocephalic - Eye Eye exam: Present: PERRL, conjuntiva pink, sclera anicteric Pupils: Present: PERRL - Neck Neck exam general surgery: Present: supple, trachea midline. Absent: lymphadenopathy - Respiratory Respiratory exam: Present: CTAB. Absent: accessory muscle use, rales, rhonchi, wheezes - Cardiovascular Cardiovascular exam: Present: RRR, +S1, +S2. Absent: diastolic murmur, gallop, rubs, systolic murmur - GI/Abdominal GI/Abdominal exam: Present: normal bowel sounds, soft, no peritoneal signs. Absent: distended, tenderness - Extremities Exam Extremities exam: Present: warm, radial pulses palpable and symmetrical. Absent : calf tenderness, cyanotic, pedal edema - Neurological Exam Neurological exam: Present: alert, CN II-XII intact, oriented X3, no focal deficits. Absent: pronater drift, facial droop, speech deficit - Skin Skin exam: Present: dry, intact Internal Medicine: Result - Labs CBC & Chem 7: 10/04/17 03:30 10/04/17 03:30 Labs: Short CBC 10/04/17 Range/Units 03:30 WBC 17.2 H D (4.3-11.1) K/mcL Hgb 11.6 L (12.9-16.9) g/dL Hct 34.4 L (37.5-50.1) % Plt Count 239 (140-400) K/mcL BMP 10/04/17 03:30 Sodium 138 Potassium 4.4 Chloride 109 H Carbon Dioxide 19 L BUN 13 Creatinine 0.68 L Glucose 135 H Calcium 9.1 Liver Function 10/04/17 Range/Units 03:30 Total Bilirubin 0.5 (0.3-1.0) mg/dL AST 10 L (13-39) Units/L ALT 14 (7-52) Units/L Alkaline Phosphatase 86 (34-104) Units/L Albumin 3.9 (3.5-5.7) g/dL Consult Discharge Plan - Plan Referrals: Lanny Stout, BENEFIT SPECIALIST [Primary Care Provider] -
[2017-10-04] MEDS ORDERED: ETOPOSIDE IV SCH (14:00)
[2017-10-04] MEDS ORDERED: VINCRISTINE IV SCH (14:00)
[2017-10-04] MEDS ORDERED: [UNRECOGNIZED DRUG - OTHER] IV SCH (14:00)
[2017-10-04] MEDS ORDERED: DOXORUBICIN HCL IV SCH (14:00)
--- NOTE | 2017-10-04 16:01 | IR Procedure Note ---
Date of procedure: 10/04/17 Consent Obtained: Written consent Timeout: Correct patient and procedure verified, Correct site verified, Time out performed, Skin prep completed Indications: lymphoma Procedure Performed: intrathecal chemo injection Was there an insurance assistant present: No Site/Technique: L4-5 Results/Findings: adequate placement Estimated blood loss (cc): 0 Complications: None; Tolerated procedure well Post Procedure Treatment Plan: dc to floor Specimen: none
[2017-10-04] MEDS: 0.9 % Sodium Chloride 500 ML IVC SCH (17:14)
--- NOTE | 2017-10-04 17:40 | Oncology Inp Consult Note ---
Date of Encounter: 10/04/17 Time of Encounter: 17:40 Assessment and Plan (1) Burkitts lymphoma Status: Chronic Assessment and plan: Mr. Robison presents for cycle #4 of dose adjusted R-EPOCH with IT MTX on day 2 and day 5 (Tuesday and Tuesday). He tolerated his IT MTX procedure quite well with no symptoms of spinal headache. He denies abdominal pain and has no signs of acute abdomen. His steroid dose has been decreased by 50% following his perforated diverticulum which unfortunately complicated cycle #3. His last BM was yesterday but was small. Stopped other laxatives and started metamucil BID along with senokot daily. Lovenox may be held as he is ambulatory. Counts stable. Will continue to monitor patient during hospital stay. 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 His treatment intent is curative. He presents for cycle #4 of dose adjusted REPOCH chemotherapy, with IT methotrexate on Tuesday/Tuesday. Unfortunately, cycle #3 was complicated by a ruptured diverticulum which was managed conservatively and without surgical intervention. Clinically, this has completely resolved. His steroid dose has been reduced by 50% this admission. Past Med Surg Social Fam HX - Past Medical History Medical history: GERD, hypertension Psychiatric history: anxiety - Past Surgical History Surgical History: non-contributory Additional surgical history: tumor removed from eye - Social History Smoking Status: Former smoker Smokeless Tobacco Status: No Alcohol use: none Drug use: none - Family History Mother Hx Family Endocrine Disorder: Yes (Diabetes) Medications and Allergies Loratadine [Claritin] 10 mg PO DAILY 08/15/17 [History] Nicotine Patch [Nicoderm] 21 mg TP DAILY 08/15/17 [History] Promethazine [Phenergan] 25 mg Q6HR PRN 08/15/17 [History] Tramadol HCl [Ultram] 50 mg Q8HR PRN 08/15/17 [History] LORazepam [Ativan] 0.5 mg PO BID PRN 30 Days #60 tablet 08/30/17 [Rx] Docusate [Colace] 200 mg PO DAILY 10/03/17 [History] Lisinopril [Zestril] 10 mg PO DAILY #30 tablet 10/03/17 [Rx] Pantoprazole Sodium [Protonix] 40 mg PO DAILY #30 tablet. 10/03/17 [Rx] Polyethylene Glycol 3350 [MiraLAX] 17 gm PO DAILY 10/03/17 [History] 3 Allergy/AdvReac Type Severity Reaction Status Date / Time No Known Allergies Allergy Verified 10/03/17 08:37 Constitutional: Present: fatigue. Absent: anorexia, chills, fever(s), frequent falls, weakness, weight loss Eyes: Absent: change in vision Nose, mouth and throat: Absent: dysphagia, mouth pain Cardiovascular: Absent: chest pain Respiratory: Absent: cough, dyspnea Gastrointestinal: Absent: abdominal pain, nausea, vomiting Additional comments: denies dysuria or hematuria Musculoskeletal: Present: muscle weakness Integumentary: Absent: rash, wounds Neurological: Absent: focal weakness, frequent falls Additional comments: paresthesias-stable and unchanged Psychiatric: Present: anxiety Hematologic/Lymphatic: Present: as per HPI Oncology - Exam - Constitutional Vitals: Temp Pulse Resp BP Pulse Ox 98.9 F 97 14 107/57 96 10/04/17 16:53 10/04/17 16:53 10/04/17 16:53 10/04/17 16:53 10/04/17 16:53 General appearance: cooperative, no acute distress, no febrile - Head Head exam: Present: atraumatic - ENT ENT exam: Present: mucous membranes moist - Respiratory Respiratory exam: Present: CTAB. Absent: respiratory distress - Cardiovascular Cardiovascular exam: Present: RRR, +S1, +S2 - GI/Abdominal GI/Abdominal exam: Present: normal bowel sounds, soft. Absent: guarding, rebound, tenderness - Extremities Exam Extremities exam: Present: normal inspection. Absent: calf tenderness - Neurological Exam Neurological exam: Present: alert, oriented X3, no focal deficits, strengths equal and symetr throughout - Psychiatric Psychiatric exam: Present: normal affect, normal mood - Skin Skin exam: Present: dry, intact, normal color, warm Oncology - Results Labs: 3 10/04/17 10/04/17 10/04/17 11:39 07:59 03:30 WBC RBC Hgb Hct MCV MCH MCHC RDW Plt Count MPV Sodium Potassium Chloride Carbon Dioxide BUN Creatinine Est GFR ( Amer) Est GFR (Non-Af Amer) BUN/Creatinine Ratio Glucose POC Glucose 138 H 103 H Calculated Osmolality Calcium Magnesium Total Bilirubin AST ALT Alkaline Phosphatase B-Natriuretic Peptide 21 Serum Total Protein Albumin Globulin Albumin/Globulin Ratio Triglycerides Cholesterol LDL Cholesterol, Calc VLDL Cholesterol, Calc HDL Cholesterol Cholesterol/HDL Ratio 3 10/04/17 10/04/17 10/03/17 03:30 03:30 20:13 WBC 17.2 H D RBC 3.92 L Hgb 11.6 L Hct 34.4 L MCV 87.8 MCH 29.6 MCHC 33.7 RDW 14.8 H Plt Count 239 MPV 8.7 L Sodium 138 Potassium 4.4 Chloride 109 H Carbon Dioxide 19 L BUN 13 Creatinine 0.68 L Est GFR ( Amer) > 60 Est GFR (Non-Af Amer) > 60 BUN/Creatinine Ratio 19 Glucose 135 H POC Glucose 265 H Calculated Osmolality 288 Calcium 9.1 Magnesium 2.0 Total Bilirubin 0.5 AST 10 L ALT 14 Alkaline Phosphatase 86 B-Natriuretic Peptide Serum Total Protein 6.0 L Albumin 3.9 Globulin 2.1 L Albumin/Globulin Ratio 1.9 Triglycerides 53 Cholesterol 209 H LDL Cholesterol, Calc 152 H VLDL Cholesterol, Calc 11 HDL Cholesterol 46 Cholesterol/HDL Ratio 4.5 3 10/03/17 10/03/17 17:04 11:02 WBC RBC Hgb Hct MCV MCH MCHC RDW Plt Count MPV Sodium Potassium Chloride Carbon Dioxide BUN Creatinine Est GFR ( Amer) Est GFR (Non-Af Amer) BUN/Creatinine Ratio Glucose POC Glucose 243 H 113 H Calculated Osmolality Calcium Magnesium Total Bilirubin AST ALT Alkaline Phosphatase B-Natriuretic Peptide Serum Total Protein Albumin Globulin Albumin/Globulin Ratio Triglycerides Cholesterol LDL Cholesterol, Calc VLDL Cholesterol, Calc HDL Cholesterol Cholesterol/HDL Ratio Consult Discharge Plan - Plan Referrals: Lanny Stout, HEATER WORKER [Primary Care Provider] -
[2017-10-04] MEDS: Psyllium 1 PACKET POWD.PACK PO SCH (21:51)
[2017-10-05 05:36] LABS: Basophils % 0.1 %; Hematocrit 31.6 % (37.5-50.1); Hemoglobin 10.4 g/dL (12.9-16.9); Immature Granulocytes % 0.8 % (0-4); Lymphocytes # 1.5 K/mcL (0.6-4.6); Lymphocytes % 10.5 %; Mean Corpuscular HGB Conc 32.9 g/dL (31.6-35.5); Mean Corpuscular Hemoglobin 29.5 pg (28.0-33.3); Mean Corpuscular Volume 89.5 fL (83.0-100.0); Mean Platelet Volume 8.7 fL (9.4-12.4); Monocytes # 1.1 K/mcL (0.0-1.3); Monocytes % 7.3 %; Neutrophils # 11.7 K/mcL (1.6-8.9); Platelet Count 215 K/mcL (140-400); Red Blood Count 3.53 M/mcL (4.19-5.50); Red Cell Distribution Width 15.2 % (11.5-14.5); Segmented Neutrophils % 81.3 %
[2017-10-05 05:49] LABS: BUN/Creatinine Ratio 24 (6-26); Blood Urea Nitrogen 16 mg/dL (6-20); Calcium 8.8 mg/dL (8.6-10.3); Carbon Dioxide 23 mEq/L (23-29); Chloride 109 mEq/L (98-107); Glucose 200 mg/dL (70-105); Osmolality,Calculated 295 (280-300); Potassium 3.9 mEq/L (3.5-5.1); Sodium 139 mEq/L (136-145); eGFR For African Americans > 60 (> 60); eGFR For Non-African Americans > 60 (> 60)
--- NOTE | 2017-10-05 09:38 | Internal Med Progress Note ---
Date of Encounter: 10/05/17 Time of Encounter: 09:00 - Assessment and plan (1) Burkitts lymphoma Current Visit: Yes Status: Chronic Assessment and plan: admitted for chemo, management per onc Qualifiers: Lymphoma site: extranodal excluding spleen and other solid organs Qualified Code(s): C83.79 - Burkitt lymphoma, extranodal and solid organ sites (2) Diabetes mellitus Current Visit: Yes Status: Chronic Assessment and plan: continue sliding scale Qualifiers: Diabetes mellitus type: type 2 Diabetes mellitus correction insulin use: without terminal makeup operator use Diabetes mellitus complication status: without complication Qualified Code(s): E11.9 - Type 2 diabetes mellitus without complications (3) DVT prophylaxis Current Visit: Yes Status: Acute Assessment and plan: ambulatory, onc discontinued lovenox, ambulate prn (4) GERD (gastroesophageal reflux disease) Current Visit: Yes Status: Chronic Assessment and plan: continue omeprazole Qualifiers: Esophagitis presence: with esophagitis Qualified Code(s): K21.0 - Gastro- esophageal reflux disease with esophagitis (5) Hypertension Current Visit: Yes Status: Chronic Assessment and plan: controlled, continue home meds Qualifiers: Hypertension type: essential hypertension Qualified Code(s): I10 - Essential (primary) hypertension (6) Leukocytosis Current Visit: Yes Status: Acute Assessment and plan: possibly due to steroids and underlying lymphoma improving, dose of steroid decreased by oncology continue to monitor Qualifiers: Leukocytosis type: unspecified Qualified Code(s): D72.829 - Elevated white blood cell count, unspecified (7) Obesity Current Visit: Yes Status: Chronic Assessment and plan: encourage weight loss Qualifiers: Obesity type: due to excess calories Obesity classification: adult class 2 (BMI 35 - 39.9) Serious obesity comorbidity presence: without serious comorbidity Body mass index: BMI 36.0-36.9 Qualified Code(s): E66.09 - Other obesity due to excess calories; Z68.36 - Body mass index (BMI) 36.0-36.9, adult - Time Spent With Patient Total time spent is greater than 50% in coordination of care (as documented) at patient's floor/unit and/or counseling patient: - Subjective Interval history: Seen and evaluated at bedside No chest pain, abdominal pain, no new complains s/p intra-thecal chemo at IR 10/04 - Constitutional Vitals: Temp Pulse Resp BP Pulse Ox 97.4 F L 74 15 101/63 98 10/05/17 05:24 10/05/17 05:24 10/05/17 05:24 10/05/17 05:24 10/05/17 05:24 General appearance: Present: A&O X 3, pleasant, no acute distress, obese - Head Head exam: Present: atraumatic, normocephalic - Eye Eye exam: Present: PERRL, conjuntiva pink, sclera anicteric Pupils: Present: PERRL - Neck Neck exam general surgery: Present: supple, trachea midline. Absent: lymphadenopathy - Respiratory Respiratory exam: Present: CTAB. Absent: accessory muscle use, rales, rhonchi, wheezes - Cardiovascular Cardiovascular exam: Present: RRR, +S1, +S2. Absent: diastolic murmur, gallop, rubs, systolic murmur - GI/Abdominal GI/Abdominal exam: Present: normal bowel sounds, soft, no peritoneal signs. Absent: distended, tenderness - Extremities Exam Extremities exam: Present: warm, radial pulses palpable and symmetrical. Absent : calf tenderness, cyanotic, pedal edema - Neurological Exam Neurological exam: Present: alert, CN II-XII intact, oriented X3, no focal deficits. Absent: pronater drift, facial droop, speech deficit - Skin Skin exam: Present: dry, intact Internal Medicine: Result - Labs CBC & Chem 7: 10/05/17 05:18 10/05/17 05:18 Labs: Short CBC 10/05/17 Range/Units 05:18 WBC 14.4 H (4.3-11.1) K/mcL Hgb 10.4 L (12.9-16.9) g/dL Hct 31.6 L (37.5-50.1) % Plt Count 215 (140-400) K/mcL Neutrophils # 11.7 H (1.6-8.9) K/mcL BMP 10/05/17 05:18 Sodium 139 Potassium 3.9 Chloride 109 H Carbon Dioxide 23 BUN 16 Creatinine 0.67 L Glucose 200 H Calcium 8.8 Consult Discharge Plan - Plan Referrals: Lanny Stout, LACQU[employer] MAKER [Primary Care Provider] -
[2017-10-05] MEDS: methylPREDNISolone 125 MG/2 ML VIAL IVP SCH (09:42)
[2017-10-05] MEDS: Pantoprazole 40 MG VIAL IVP SCH (09:42)
[2017-10-05] MEDS: Nicotine 21 MG PATCH.TD24 TP SCH (09:42)
[2017-10-05] MEDS: Sennosides/Docusate Sodium TABLET PO SCH (09:42)
[2017-10-05] MEDS: Loratadine 10 MG TABLET PO SCH (09:42)
[2017-10-05] MEDS: Psyllium 1 PACKET POWD.PACK PO SCH ×2 (09:43→20:42)
[2017-10-05] MEDS: Insulin LISPRO 300 UNITS/3 ML VIAL SQ SCH ×4 (09:51→20:42)
--- NOTE | 2017-10-05 12:51 | Oncology Inp Progress Note ---
Date of Encounter: 10/05/17 Time of Encounter: 13:45 (1) Burkitts lymphoma Current Visit: Yes Status: Chronic Assessment and plan: We will proceed with cycle #4 day 3 of therapy today. Tolerating therapy well. No adjustment is indicated. We will plan for day 5 intrathecal methotrexate on Tuesday prior to discharge Qualifiers: Lymphoma site: extranodal excluding spleen and other solid organs Qualified Code(s): C83.79 - Burkitt lymphoma, extranodal and solid organ sites (2) Diverticulitis of colon with perforation Current Visit: No Status: Resolved Assessment and plan: No evidence of recurrence. Continue to monitor closely. Qualifiers: Diverticulitis bleeding: without bleeding Qualified Code(s): K57.20 - Diverticulitis of large intestine with perforation and abscess without bleeding Oncology: Subj Interval history: Mr. Robison is doing well. He is receiving his third day of cycle 4. I am happy to report he is having no significant side effects from his therapy. No fever, chill or symptom of infection. He is moving his bowels with formed stool although they are small in quantity. No abdominal pain to speak of. No nausea or vomiting. He is eating well. He is visiting with a friend over the lunch hour today - Constitutional Vitals: Vital Signs Temp Pulse Resp BP Pulse Ox 10/05/17 11:17 97.9 F 77 14 116/74 97 10/05/17 05:24 97.4 F L 74 15 101/63 98 10/05/17 00:38 97.4 F L 82 15 108/70 97 10/04/17 19:55 98.0 F 89 15 121/67 96 10/04/17 16:53 98.9 F 97 14 107/57 96 Intake and Output 10/05/17 10/05/17 10/05/17 00:59 08:59 16:59 Intake Total 200 / 200 0 / 0 240 / 240 Output Total 1100 / 1100 350 / 350 0 / 0 Balance -900 / -900 -350 / -350 240 / 240 Intake: Oral 200 / 200 0 / 0 240 / 240 Output: Urine 1100 / 1100 350 / 350 0 / 0 Other: Meal Dinner Dinner Percent of Meal Consumed 0% 100% Weight 110.586 kg Blood Glucose* 159 148 163 Patient Weight 10/06/17 00:59 Weight 110.586 kg General appearance: cooperative, no acute distress - Head Head exam: Present: atraumatic, normal inspection, normocephalic - Eye Eye exam: Present: normal appearance, sclera anicteric - ENT ENT exam: Present: mucous membranes moist, normal oropharynx - Neck Neck exam: Present: full ROM, normal inspection - Respiratory Respiratory exam: Present: CTAB - Cardiovascular Cardiovascular exam: Present: RRR - GI/Abdominal GI/Abdominal exam: Present: normal bowel sounds, soft - Extremities Exam Extremities exam: Present: normal inspection - Neurological Exam Neurological exam: Present: alert, CN II-XII intact, oriented X3, no focal deficits Oncology: Obj Data - Labs CBC & Chem 7: 10/05/17 05:18 10/05/17 05:18 Labs: Laboratory Results - last 24 hr 10/04/17 10/04/17 10/05/17 07:59 11:39 05:18 WBC 14.4 H RBC 3.53 L Hgb 10.4 L Hct 31.6 L MCV 89.5 MCH 29.5 MCHC 32.9 RDW 15.2 H Plt Count 215 MPV 8.7 L Immature Gran % 0.8 Seg Neutrophils % 81.3 Lymphocytes % 10.5 Monocytes % 7.3 Eosinophils % 0.0 Basophils % 0.1 Neutrophils # 11.7 H Lymphocytes # 1.5 Monocytes # 1.1 Eosinophils # 0.0 Basophils # 0.0 Sodium Potassium Chloride Carbon Dioxide BUN Creatinine Est GFR ( Amer) Est GFR (Non-Af Amer) BUN/Creatinine Ratio Glucose POC Glucose 103 H 138 H Calculated Osmolality Calcium 10/05/17 10/05/17 10/05/17 05:18 08:05 11:16 WBC RBC Hgb Hct MCV MCH MCHC RDW Plt Count MPV Immature Gran % Seg Neutrophils % Lymphocytes % Monocytes % Eosinophils % Basophils % Neutrophils # Lymphocytes # Monocytes # Eosinophils # Basophils # Sodium 139 Potassium 3.9 Chloride 109 H Carbon Dioxide 23 BUN 16 Creatinine 0.67 L Est GFR ( Amer) > 60 Est GFR (Non-Af Amer) > 60 BUN/Creatinine Ratio 24 Glucose 200 H POC Glucose 148 H 163 H Calculated Osmolality 295 Calcium 8.8 - Impressions Impressions Chemotherapy Admin, Fluoroscopy Guided 10/04/17 08:05 IMPRESSION: Successful intrathecal injection of chemotherapy under fluoroscopy. D/ / 10/05/2017 09:53:03 Bianka Myers MD / [email or web address] Interpreting Provider: Bianka Myers MD Consult Discharge Plan - Plan Referrals: Lanny Stout, APPLICATION SERVICES MANAGER [Primary Care Provider] -
[2017-10-05] MEDS ORDERED: [UNRECOGNIZED DRUG - OTHER] IV SCH (16:00)
[2017-10-05] MEDS ORDERED: DOXORUBICIN HCL IV SCH (16:00)
[2017-10-05] MEDS ORDERED: ETOPOSIDE IV SCH (16:00)
[2017-10-05] MEDS ORDERED: VINCRISTINE IV SCH (16:00)
[2017-10-05] MEDS: 0.9 % Sodium Chloride 500 ML IVC SCH (16:49)
[2017-10-06 07:00] LABS: Basophils % 0.1 %; Eosinophils % 0.2 %; Hematocrit 33.5 % (37.5-50.1); Hemoglobin 11.3 g/dL (12.9-16.9); Immature Granulocytes % 0.5 % (0-4); Lymphocytes % 18.5 %; Mean Corpuscular HGB Conc 33.7 g/dL (31.6-35.5); Mean Corpuscular Hemoglobin 29.8 pg (28.0-33.3); Mean Corpuscular Volume 88.4 fL (83.0-100.0); Mean Platelet Volume 8.6 fL (9.4-12.4); Monocytes # 0.6 K/mcL (0.0-1.3); Monocytes % 5.1 %; Neutrophils # 8.1 K/mcL (1.6-8.9); Platelet Count 201 K/mcL (140-400); Red Blood Count 3.79 M/mcL (4.19-5.50); Red Cell Distribution Width 14.7 % (11.5-14.5); Segmented Neutrophils % 75.6 %
[2017-10-06] MEDS: 0.9 % Sodium Chloride 500 ML IVC SCH (07:34)
[2017-10-06] MEDS: Insulin LISPRO 300 UNITS/3 ML VIAL SQ SCH ×4 (08:10→21:05)
[2017-10-06] MEDS: Nicotine 21 MG PATCH.TD24 TP SCH (08:22)
[2017-10-06] MEDS: Psyllium 1 PACKET POWD.PACK PO SCH ×2 (08:22→21:05)
[2017-10-06] MEDS: Sennosides/Docusate Sodium TABLET PO SCH (08:23)
[2017-10-06] MEDS: methylPREDNISolone 125 MG/2 ML VIAL IVP SCH (08:23)
[2017-10-06] MEDS: Pantoprazole 40 MG VIAL IVP SCH (08:23)
[2017-10-06] MEDS: Loratadine 10 MG TABLET PO SCH (08:23)
--- NOTE | 2017-10-06 11:44 | Internal Med Progress Note ---
Date of Encounter: 10/06/17 Time of Encounter: 11:43 - Assessment and plan (1) Burkitts lymphoma Current Visit: Yes Status: Chronic Assessment and plan: admitted for chemo, management per onc Qualifiers: Lymphoma site: extranodal excluding spleen and other solid organs Qualified Code(s): C83.79 - Burkitt lymphoma, extranodal and solid organ sites (2) Diabetes mellitus Current Visit: Yes Status: Chronic Assessment and plan: continue sliding scale Qualifiers: Diabetes mellitus type: type 2 Diabetes mellitus senior living insulin use: without laborer marine terminal use Diabetes mellitus complication status: without complication Qualified Code(s): E11.9 - Type 2 diabetes mellitus without complications (3) DVT prophylaxis Current Visit: Yes Status: Acute Assessment and plan: ambulatory, onc discontinued lovenox, ambulate prn (4) GERD (gastroesophageal reflux disease) Current Visit: Yes Status: Chronic Assessment and plan: continue omeprazole Qualifiers: Esophagitis presence: with esophagitis Qualified Code(s): K21.0 - Gastro- esophageal reflux disease with esophagitis (5) Hypertension Current Visit: Yes Status: Chronic Assessment and plan: controlled, continue home meds Qualifiers: Hypertension type: essential hypertension Qualified Code(s): I10 - Essential (primary) hypertension (6) Leukocytosis Current Visit: Yes Status: Resolved Assessment and plan: resolved, possibly due to steroids Qualifiers: Leukocytosis type: unspecified Qualified Code(s): D72.829 - Elevated white blood cell count, unspecified (7) Obesity Current Visit: Yes Status: Chronic Assessment and plan: encourage weight loss Qualifiers: Obesity type: due to excess calories Obesity classification: adult class 2 (BMI 35 - 39.9) Serious obesity comorbidity presence: without serious comorbidity Body mass index: BMI 36.0-36.9 Qualified Code(s): E66.09 - Other obesity due to excess calories; Z68.36 - Body mass index (BMI) 36.0-36.9, adult - Time Spent With Patient Total time spent is greater than 50% in coordination of care (as documented) at patient's floor/unit and/or counseling patient: - Subjective Interval history: Seen and evaluated at bedside No chest pain, abdominal pain, no new complains s/p intra-thecal chemo at IR /12 - Constitutional Vitals: Temp Pulse Resp BP Pulse Ox 98.5 F 85 16 132/83 98 10/06/17 11:40 10/06/17 11:40 10/06/17 11:40 10/06/17 11:40 10/06/17 11:40 General appearance: Present: A&O X 3, pleasant, no acute distress, obese - Head Head exam: Present: atraumatic, normocephalic - Eye Eye exam: Present: PERRL, conjuntiva pink, sclera anicteric Pupils: Present: PERRL - Neck Neck exam general surgery: Present: supple, trachea midline. Absent: lymphadenopathy - Respiratory Respiratory exam: Present: CTAB. Absent: accessory muscle use, rales, rhonchi, wheezes Additional comments: port, clean and dry - Cardiovascular Cardiovascular exam: Present: RRR, +S1, +S2. Absent: diastolic murmur, gallop, rubs, systolic murmur - GI/Abdominal GI/Abdominal exam: Present: normal bowel sounds, soft, no peritoneal signs. Absent: distended, tenderness - Extremities Exam Extremities exam: Present: warm, radial pulses palpable and symmetrical. Absent : calf tenderness, cyanotic, pedal edema - Neurological Exam Neurological exam: Present: alert, CN II-XII intact, oriented X3, no focal deficits. Absent: pronater drift, facial droop, speech deficit - Skin Skin exam: Present: dry, intact Internal Medicine: Result - Labs CBC & Chem 7: 10/06/17 06:30 10/05/17 05:18 Labs: Short CBC 10/06/17 Range/Units 06:30 WBC 10.7 (4.3-11.1) K/mcL Hgb 11.3 L (12.9-16.9) g/dL Hct 33.5 L (37.5-50.1) % Plt Count 201 (140-400) K/mcL Neutrophils # 8.1 (1.6-8.9) K/mcL Consult Discharge Plan - Plan Referrals: Lanny Stout, RED [Primary Care Provider] -
[2017-10-06] MEDS ORDERED: DOXORUBICIN HCL IV SCH (16:00)
[2017-10-06] MEDS ORDERED: [UNRECOGNIZED DRUG - OTHER] IV SCH (16:00)
[2017-10-06] MEDS ORDERED: ETOPOSIDE IV SCH (16:00)
[2017-10-06] MEDS ORDERED: VINCRISTINE IV SCH (16:00)
--- NOTE | 2017-10-06 17:38 | Oncology Inp Progress Note ---
Date of Encounter: 10/06/17 Time of Encounter: 17:38 (1) Burkitts lymphoma Current Visit: No Status: Chronic Assessment and plan: Mr. Robison is on cycle #4, day 4 of dose adjusted R-EPOCH with IT MTX on day 2 and day 5 (Tuesday and Tuesday). Tomorrow, he will plan to finish day 4, receive IT MTX and cyclophosphomide and then he may discharge home. He will plan to RTC next week as scheduled for Neulasta and lab monitoring. He continues to feel quite well with no acute changes. He denies abdominal pain , nausea or vomiting. His CBC and vitals are stable. Will continue to monitor patient during hospital stay. Qualifiers: Lymphoma site: extranodal excluding spleen and other solid organs Qualified Code(s): C83.79 - Burkitt lymphoma, extranodal and solid organ sites (2) Diverticulitis of colon with perforation Current Visit: No Status: Resolved Assessment and plan: He is without signs of reoccurrence. Denies abdominal pain, no pain with palpation or rebound tenderness on exam. He reports feeling slightly constipated, he is having small regular BM's. Will try MOM for constipation. Qualifiers: Diverticulitis bleeding: without bleeding Qualified Code(s): K57.20 - Diverticulitis of large intestine with perforation and abscess without bleeding Oncology: Subj Interval history: Mr. Robison is resting in bed with his family at his bedside. He denies pain, nausea, vomiting, diarrhea, abdominal pain or paresthesias. No acute changes. His appetite is good. He recently showered and has been ambulating in the arreola often today. - Constitutional Vitals: Vital Signs Temp Pulse Resp BP Pulse Ox 10/06/17 15:02 98.5 F 93 15 128/83 96 10/06/17 11:40 98.5 F 85 16 132/83 98 10/06/17 08:16 98 10/06/17 07:27 98.1 F 73 16 118/75 98 10/06/17 04:14 97.5 F L 66 14 106/68 97 10/05/17 19:11 98.2 F 89 15 112/73 96 Intake and Output 10/06/17 10/06/17 10/06/17 07:59 15:59 23:59 Intake Total 240 / 240 1600 / 1600 Output Total 1000 / 1000 951 / 951 Balance -760 / -760 649 / 649 Intake: Oral 240 / 240 1600 / 1600 Output: Urine 1000 / 1000 951 / 951 Other: Meal Dinner Lunch Percent of Meal Consumed 100% 100% Stool Size Small Stool Consistency formed Stool Characteristics Normal for Patient Stool Color Brown # Bowel Movements 1 Weight 109.8 kg Blood Glucose* 94 187 220 Patient Weight 10/06/17 23:59 Weight 109.8 kg General appearance: cooperative, no acute distress, no febrile - Head Head exam: Present: atraumatic - ENT ENT exam: Present: mucous membranes moist - Respiratory Respiratory exam: Present: CTAB. Absent: respiratory distress - Cardiovascular Cardiovascular exam: Present: RRR, +S1, +S2 - GI/Abdominal GI/Abdominal exam: Present: normal bowel sounds, soft. Absent: guarding, rebound, tenderness - Extremities Exam Extremities exam: Present: calf tenderness - Neurological Exam Neurological exam: Present: alert, oriented X3, no focal deficits, strengths equal and symetr throughout - Psychiatric Psychiatric exam: Present: normal affect, normal mood - Skin Skin exam: Present: dry, intact, normal color, warm Oncology: Obj Data - Labs CBC & Chem 7: 10/06/17 06:30 10/05/17 05:18 Consult Discharge Plan - Plan Referrals: Lanny Stout CNP [Primary Care Provider] -
[2017-10-06] MEDS ORDERED: MOM Conc 10 ML UD.LIQ PO PRN (18:41)
[2017-10-07] MEDS: Insulin LISPRO 300 UNITS/3 ML VIAL SQ SCH ×3 (08:04→17:24)
[2017-10-07] MEDS: Pantoprazole 40 MG VIAL IVP SCH (09:21)
[2017-10-07] MEDS: Sennosides/Docusate Sodium TABLET PO SCH (09:21)
[2017-10-07] MEDS: Psyllium 1 PACKET POWD.PACK PO SCH (09:21)
[2017-10-07] MEDS: Loratadine 10 MG TABLET PO SCH (09:21)
[2017-10-07] MEDS: Nicotine 21 MG PATCH.TD24 TP SCH (09:22)
[2017-10-07] MEDS: methylPREDNISolone 125 MG/2 ML VIAL IVP SCH (09:22)
--- NOTE | 2017-10-07 10:22 | Discharge Summary ---
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 Qualifiers: Lymphoma site: extranodal excluding spleen and other solid organs Qualified Code(s): C83.79 - Burkitt lymphoma, extranodal and solid organ sites (2) Diabetes mellitus Priority: Secondary Status: Chronic Qualifiers: Diabetes mellitus type: type 2 Diabetes mellitus petroleum terminal plant operator insulin use: without petroleum terminal plant operator use Diabetes mellitus complication status: without complication Qualified Code(s): E11.9 - Type 2 diabetes mellitus without complications (3) DVT prophylaxis Priority: Primary Status: Acute (4) GERD (gastroesophageal reflux disease) Priority: Secondary Status: Chronic Qualifiers: Esophagitis presence: with esophagitis Qualified Code(s): K21.0 - Gastro- esophageal reflux disease with esophagitis (5) Hypertension Priority: Secondary Status: Chronic Qualifiers: Hypertension type: essential hypertension Qualified Code(s): I10 - Essential (primary) hypertension (6) Leukocytosis Priority: Primary Status: Resolved Qualifiers: Leukocytosis type: unspecified Qualified Code(s): D72.829 - Elevated white blood cell count, unspecified (7) Obesity Priority: Secondary Status: Chronic Qualifiers: Obesity type: due to excess calories Obesity classification: adult class 2 (BMI 35 - 39.9) Serious obesity comorbidity presence: without serious comorbidity Body mass index: BMI 36.0-36.9 Qualified Code(s): E66.09 - Other obesity due to excess calories; Z68.36 - Body mass index (BMI) 36.0-36.9, adult Hospital course: Mr. Robison is a 42 year old male with Burkitt.s lymphoma , DM, HTN who was admitted for acycle of chemo There has been no acute events in this admissions His chronic medical conditions have been stable He is to be discharged after last dose of chemo (per oncology ) and follow up with oncology and PCP Plan of care is discussed with patient, who verbalized understanding Follow up with PCP and Oncology Discharge discussed with: patient, nurse Time spent discussing smoking cessation with patient: 3 to 10 minutes - Time Spent with Patient Total time spent providing and/or coordinating discharge services: Less than 30 minutes - Discharge Medications Home Medications: Loratadine [Claritin] 10 mg PO DAILY 08/15/17 [History] Nicotine Patch [Nicoderm] 21 mg TP DAILY 08/15/17 [History] Promethazine [Phenergan] 25 mg Q6HR PRN 08/15/17 [History] Tramadol HCl [Ultram] 50 mg Q8HR PRN 08/15/17 [History] LORazepam [Ativan] 0.5 mg PO BID PRN 30 Days #60 tablet 08/30/17 [Rx] Docusate [Colace] 200 mg PO DAILY 10/03/17 [History] Lisinopril [Zestril] 10 mg PO DAILY #30 tablet 10/03/17 [Rx] Pantoprazole Sodium [Protonix] 40 mg PO DAILY #30 tablet. 10/03/17 [Rx] Polyethylene Glycol 3350 [MiraLAX] 17 gm PO DAILY 10/03/17 [History] Allergies/Adverse Reactions: 3 Allergy/AdvReac Type Severity Reaction Status Date / Time No Known Allergies Allergy Verified 10/03/17 08:37 Date of admission: 10/03/17 09:50 Primary care physician: Lanny Stout CNP Discharging clinician: Javier Toribio Anticipated date of discharge: 10/07/17 - Constitutional Vitals: Temp Pulse Resp BP Pulse Ox 98.3 F 74 16 128/75 97 10/07/17 07:00 10/07/17 07:00 10/07/17 07:00 10/07/17 07:00 10/07/17 07:00 General appearance: Present: A&O X 3, pleasant, no acute distress, obese - Head Head exam: Present: atraumatic, normocephalic - Eye Eye exam: Present: PERRL, conjuntiva pink, sclera anicteric Pupils: Present: PERRL - Neck Neck exam general surgery: Present: supple, trachea midline. Absent: lymphadenopathy - Respiratory Respiratory exam: Present: CTAB. Absent: accessory muscle use, rales, rhonchi, wheezes - Cardiovascular Cardiovascular exam: Present: RRR, +S1, +S2. Absent: diastolic murmur, gallop, rubs, systolic murmur - GI/Abdominal GI/Abdominal exam: Present: normal bowel sounds, soft, no peritoneal signs. Absent: distended, tenderness - Extremities Exam Extremities exam: Present: warm, radial pulses palpable and symmetrical. Absent : calf tenderness, cyanotic, pedal edema - Neurological Exam Neurological exam: Present: alert, CN II-XII intact, oriented X3, no focal deficits. Absent: pronater drift, facial droop, speech deficit - Skin Skin exam: Present: dry, intact - Patient Status Disposition: Home, Self-Care Condition: Good Functional capacity at discharge: independent ambulation Overall status at discharge: patient is back to baseline - Discharge Instructions Follow Up With: Lanny Stout PRODUCTION PATTERN MAKER [Primary Care Provider] - - Diet and Activity Activity: resume usual activities as tolerated Diet: diabetic diet, low salt diet
[2017-10-07] MEDS ORDERED: Methotrexate PFS 25 MG/ML VIAL IT SCH (11:00)
--- NOTE | 2017-10-07 12:49 | IR Procedure Note ---
Date of procedure: 10/07/17 Consent Obtained: Verbal consent, Written consent Timeout: Correct patient and procedure verified, Correct site verified, Time out performed, Skin prep completed Local anesthetic: Lidocaine 1% Indications: lymphoma Procedure Performed: IT chemo inject Was there an medical research assistant present: No Site/Technique: L4-5 Estimated blood loss (cc): 0 Complications: None; Tolerated procedure well Specimen: none
[2017-10-07] MEDS ORDERED: CYCLOPHOSPHAMIDE IV SCH (17:00)
[2017-10-07] MEDS ORDERED: SODIUM CHLORIDE 0.9% IV SCH (17:00)
[2017-10-07 21:24] VITALS: BP 130/70
== END 2017-10-07 22:45 | disposition home or self-care (01) ==
LOC: 3ANU → SUATTDRO 10-03 09:50
PROVIDERS: ADMIT Internal Medicine Cardiovascular Disease; ATTEND Internal Medicine
PROC: IRLUMPX (2017-10-04 15:45)

== ENCOUNTER 2017-10-24 08:25 | Observation (INO) ==
[2017-10-24] MEDS ORDERED: Famotidine 20 MG/2 ML VIAL IV PRN (10:50)
[2017-10-24] MEDS ORDERED: Prochlorperazine 10 MG/2 ML VIAL IV PRN (10:51)
[2017-10-24] MEDS ORDERED: *HR* LORazepam 2 MG/ML VIAL IV PRN (10:51)
[2017-10-24] MEDS ORDERED: Dexamethasone 10 MG/ML VIAL IV PRN (10:52)
[2017-10-24] MEDS ORDERED: *HR* Promethazine 25 MG/ML VIAL IV PRN (10:53)
[2017-10-24] MEDS ORDERED: RITUXIMAB IV SCH (11:00)
[2017-10-24] MEDS ORDERED: Acetaminophen 325 MG TABLET PO SCH (11:00)
[2017-10-24] MEDS ORDERED: SODIUM CHLORIDE 0.9% IV SCH (11:00)
[2017-10-24] MEDS: methylPREDNISolone 125 MG/2 ML VIAL IVP SCH (11:31)
[2017-10-24] MEDS ORDERED: traMADol 50 MG TABLET PO PRN (11:32)
[2017-10-24] MEDS ORDERED: *HR* LORazepam 0.5 MG TABLET PO PRN (11:34)
[2017-10-24] MEDS ORDERED: Naloxone 0.4 MG/ML INJ IVP PRN (11:34)
--- NOTE | 2017-10-24 11:44 | Internal Med History&Physical ---
<Db Gray - Last Filed: 10/24/17 11:38> Date of Encounter: 10/24/17 Time of Encounter: 11:38 Internal Medicine - H&P: HPI Chief complaint: Chemotheraphy Admitted From: Home Plans for Post Hospital Care: Home History of present illness: Mr. Robison is a 42 year old male with history of Burkitt's lymphoma with stomach. Patient is being admitted for fifth cycle of chemotherapy. Today patient denies fevers, chills, fatigue, weakness, headache, blurry vision, ear discharge, rhinorrhea, nasal discharge, teeth pain, neck pain, shortness of breath, cough, sputum production, chest pain, palpitations, abdominal pain, bloating, nausea, vomiting, diarrhea, lower extremity edema, lower extremity pain, rash, open wounds or lesions. During patient's third cycle of chemotherapy he developed diverticulitis otherwise he has not had other complications. Today he is pleasant and is accompanied by his family and they are all playing video games in the room. Past Med Surg Social Fam HX - Past Medical History Medical history: GERD, hypertension Psychiatric history: anxiety - Past Surgical History Surgical History: non-contributory Additional surgical history: tumor removed from eye - Social History Smoking Status: Former smoker Smokeless Tobacco Status: No Alcohol use: none Drug use: none - Family History Mother Hx Family Endocrine Disorder: Yes (Diabetes) Internal Medicine - H&P: Meds Loratadine [Claritin] 10 mg PO DAILY 08/15/17 [History] Promethazine [Phenergan] 25 mg Q6HR PRN 08/15/17 [History] Tramadol HCl [Ultram] 50 mg Q8HR PRN 08/15/17 [History] Docusate [Colace] 200 mg PO DAILY 10/03/17 [History] Lisinopril [Zestril] 10 mg PO DAILY #30 tablet 10/03/17 [Rx] Pantoprazole Sodium [Protonix] 40 mg PO DAILY #30 tablet. 10/03/17 [Rx] Psyllium Husk [Metamucil] 660 gm PO DAILY 10/10/17 [History] LORazepam [Ativan] 0.5 mg PO BID PRN 30 Days #60 tablet 10/17/17 [Rx] Sertraline [Zoloft] 25 mg PO DAILY #30 tablet 10/19/17 [Rx] 3 Allergy/AdvReac Type Severity Reaction Status Date / Time No Known Allergies Allergy Verified 10/19/17 08:07 All Systems PM: A 10-system review of systems was performed and is negative for pertinent findings except as documented above in the HPI. Review of systems: Constitutional: Denies fever, chills HEENT: Denies headache, vision changes, neck pain, sore throat, rhinorrhea Heart: Denies chest pain palpitations Lungs: Denies shortness of breath cough Abdomen: Denies abdominal pain nausea vomiting diarrhea Back: Denies back pain Kidney: Denies dysuria, hematuria Skin: Denies rash, lesions Extremities: Denies swelling, pain Neuro: Denies numbness and tingling Psych: Denies depressed mood, anxiety - Constitutional Constitutional: as per HPI - Constitutional Vitals: Temp Pulse Resp BP Pulse Ox 98.3 F 94 16 106/74 95 10/24/17 10:51 10/24/17 10:51 10/24/17 10:51 10/24/17 10:51 10/24/17 10:51 - Other Additional findings: General: without distress HEENT: Head atraumatic, normocephalic, EOMI, PERRL, neck nontender to palpation , absent lymphadenopathy, Moist Mucous Membranes, Heart: Regular rate and rhythm with no murmur Lungs: Clear to auscultation bilaterally Abdomen: Soft nontender, nondistended positive bowel sounds Skin: warm and dry, absent rash Extremities: Absent pedal edema Neuro: Cranial nerves II through XII intact, UE and LE sensation equal bilaterally, UE and LE strength 5/5, alert oriented 3, Vascular: Pedal and radial pulses 2 out of 4 - Assessment and plan (1) Burkitts lymphoma Current Visit: Yes Status: Chronic Assessment and plan: 42-year-old gentleman with diagnosis of Burkitt's lymphoma. Patient is direct admit from cancer Center for administration of cycle of chemotherapy. Oncology on board. Tramadol when necessary for pain Phenergan, Compazine when necessary for nausea. Qualifiers: Lymphoma site: extranodal excluding spleen and other solid organs Qualified Code(s): C83.79 - Burkitt lymphoma, extranodal and solid organ sites (2) GERD (gastroesophageal reflux disease) Current Visit: Yes Status: Chronic Assessment and plan: Patient has a history of gastric reflux disease. Currently controlled. We will continue pantoprazole. Regular diet. Qualifiers: Esophagitis presence: with esophagitis Qualified Code(s): K21.0 - Gastro- esophageal reflux disease with esophagitis (3) Hypertension Current Visit: Yes Status: Chronic Assessment and plan: Controlled. Continue lisinopril. Qualifiers: Hypertension type: essential hypertension Qualified Code(s): I10 - Essential (primary) hypertension (4) Anxiety about health Current Visit: Yes Status: Chronic Assessment and plan: Currently patient denies anxiety or depression. Her looking through the EMR patient was put on Zoloft for cancer related anxiety /depression We will continue Zoloft and Ativan. (5) DVT prophylaxis Current Visit: Yes Status: Acute Assessment and plan: ambulate 3x/day - Time Spent With Patient Total time spent is greater than 50% in coordination of care (as documented) at patient's floor/unit and/or counseling patient: <Joseph Betancourt - Last Filed: 10/24/17 18:40> Date of Encounter: 10/24/17 Internal Medicine - H&P: HPI History of present illness: Mr. Robison is a 42 year old male All Systems PM: A 10-system review of systems was performed and is negative for pertinent findings except as documented above in the HPI. - Constitutional Vitals: Temp Pulse Resp BP Pulse Ox 97.4 F L 100 16 149/81 94 10/24/17 15:35 10/24/17 15:35 10/24/17 15:35 10/24/17 15:35 10/24/17 15:35 - Attending Attestation I examined this patient and my medical decision-making was reviewed with the Resident Physician on 10/24/17. I agree with the documented findings, disposition and treatment plan as described except to the extent set forth below. Mr Robison is currently admitted for course of chemotherapy. He remains high risk due to potential complications from multiple chemo drugs. Mr Robison is doing OK at this time. He is tolerating current infusion. No fever or chills. Playing video game. Exam Alert Comfortable Mucus membranes dry Heart reg Lungs diminished Abd soft No edema I/P 1. Burkitts lymphoma here for chemo 2. Tobacco abuse Further diagnoses and plan as above. - Assessment and plan (1) Burkitts lymphoma Current Visit: Yes Status: Chronic Qualifiers: Lymphoma site: extranodal excluding spleen and other solid organs Qualified Code(s): C83.79 - Burkitt lymphoma, extranodal and solid organ sites (2) GERD (gastroesophageal reflux disease) Current Visit: Yes Status: Chronic Qualifiers: Esophagitis presence: with esophagitis Qualified Code(s): K21.0 - Gastro- esophageal reflux disease with esophagitis (3) Hypertension Current Visit: Yes Status: Chronic Qualifiers: Hypertension type: essential hypertension Qualified Code(s): I10 - Essential (primary) hypertension (4) Anxiety about health Current Visit: Yes Status: Chronic (5) Tobacco dependence Current Visit: No Status: Chronic (6) DVT prophylaxis Current Visit: Yes Status: Acute - Time Spent With Patient Total time spent is greater than 50% in coordination of care (as documented) at patient's floor/unit and/or counseling patient:
[2017-10-24] MEDS: 0.9 % Sodium Chloride 500 ML IVC SCH (12:51)
[2017-10-24] MEDS ORDERED: Fosaprepitant Dimeglumine 150 MG in 0.9 % Sodium Chloride 250 ML IV SCH (13:30)
[2017-10-24] MEDS ORDERED: DOXORUBICIN HCL IV SCH (14:30)
[2017-10-24] MEDS ORDERED: [UNRECOGNIZED DRUG - OTHER] IV SCH (14:30)
[2017-10-24] MEDS ORDERED: VINCRISTINE IV SCH (14:30)
[2017-10-24] MEDS ORDERED: ETOPOSIDE IV SCH (14:30)
[2017-10-24] MEDS ORDERED: *HR* Dextrose 50 % in Water (Syg) 50 ML SYRINGE IVP PRN (23:01)
[2017-10-24] MEDS ORDERED: Dextrose Gel 15 GM/37.5 ML TUBE PO PRN ×2 (23:01)
[2017-10-24] MEDS ORDERED: D5% in Water 1,000 ML IVC PRN (23:01)
[2017-10-24] MEDS: Insulin LISPRO 300 UNITS/3 ML VIAL SQ SCH (23:19)
[2017-10-25] MEDS ORDERED: Methotrexate PFS 25 MG/ML VIAL IT SCH ×2 (08:30)
[2017-10-25] MEDS: Psyllium 1 PACKET POWD.PACK PO SCH (08:46)
[2017-10-25] MEDS: methylPREDNISolone 125 MG/2 ML VIAL IVP SCH (08:47)
[2017-10-25] MEDS: Loratadine 10 MG TABLET PO SCH (08:47)
[2017-10-25] MEDS: Insulin LISPRO 300 UNITS/3 ML VIAL SQ SCH ×4 (08:48→21:14)
[2017-10-25] MEDS: 0.9 % Sodium Chloride 500 ML IVC SCH (08:52)
[2017-10-25] MEDS: Nicotine 21 MG PATCH.TD24 TD SCH (09:36)
[2017-10-25] MEDS: Pantoprazole 40 MG VIAL IVP SCH (09:37)
[2017-10-25] MEDS ORDERED: Methotrexate PFS 25 MG/ML VIAL IT ONE (10:00)
[2017-10-25] MEDS ORDERED: Ibuprofen 200 MG TABLET PO PRN (14:30)
--- NOTE | 2017-10-25 14:41 | Oncology Inp Progress Note ---
<GarfieldCarlosa E - Last Filed: 10/25/17 14:38> Date of Encounter: 10/25/17 Time of Encounter: 14:39 (1) Burkitts lymphoma Current Visit: Yes Status: Chronic Assessment and plan: Day 2 chemotherapy. Just returned from having intrathecal methotrexate. Tolerating well. Will continue to monitor. Qualifiers: Lymphoma site: extranodal excluding spleen and other solid organs Qualified Code(s): C83.79 - Burkitt lymphoma, extranodal and solid organ sites Oncology: Subj Interval history: Day 2 chemotherapy. Tolerating well. States he feels good. Denies nausea. Just returned from having intrathecal methotrexate, has mild headache. Is playing video games with children. Denies depression- states did not take Zoloft, " I don't need it". - Constitutional Vitals: Vital Signs Temp Pulse Resp BP Pulse Ox 10/25/17 10:32 98.2 F 89 14 129/75 94 10/25/17 07:44 98.2 F 77 14 116/74 96 10/25/17 03:28 97.9 F 77 15 110/67 94 10/24/17 22:49 97.5 F L 78 16 107/63 93 10/24/17 20:00 97.8 F 86 15 109/69 94 10/24/17 15:35 97.4 F L 100 16 149/81 94 Intake and Output 10/24/17 10/25/17 10/25/17 23:59 07:59 15:59 Intake Total 1031.75 / 1031.75 450 / 450 544 / 544 Output Total 1999 700 / 700 0 / 0 Balance -968.25 / -968.25 -250 / -250 544 / 544 Intake: IV Fluids 431.75 / 431.75 210 / 210 304 / 304 Adriamycin 27 MG Etoposide 135 178.75 / 178.75 98 / 98 169 / 169 mg VinCRIStine 0.5 MG In 0.9 % Sodium Chloride [place] Bg 500 ML @ 24 mls/hr IV ONCE(ONC) RICH Rx#:[id number] 0.9 % Sodium Chloride 500 ML @ 253 / 253 112 / 112 135 / 135 25 MLS/HR 25 mls/hr IVC .Q20H RICH Rx#:[id number] Oral 600 / 600 240 / 240 240 / 240 Output: Urine 1999 700 / 700 0 / 0 Other: Meal Dinner Percent of Meal Consumed 100% # Voids 2 Weight 108.409 kg Blood Glucose* 264 130 249 General appearance: cooperative, no acute distress - Head Head exam: Present: normal inspection - Respiratory Respiratory exam: Present: CTAB - Cardiovascular Cardiovascular exam: Present: RRR - Extremities Exam Extremities exam: Present: normal inspection - Psychiatric Psychiatric exam: Present: normal affect, normal mood Oncology: Obj Data - Labs Labs: Laboratory Results - last 24 hr 10/24/17 10/24/17 10/24/17 16:31 19:57 23:07 POC Glucose 213 H 304 H 264 H 10/25/17 10/25/17 07:39 10:28 POC Glucose 130 H 249 H - Impressions Impressions Chemotherapy Admin, Fluoroscopy Guided 10/25/17 00:00 IMPRESSION: Successful fluoroscopic guided lumbar puncture at the level of L4-L5, with methotrexate injection. D/ / Stephen Diallo MD / Stephen Diallo MD Interpreting Provider: Stephen Diallo MD Consult Discharge Plan - Plan Referrals: Lanny Stout, [employer] [Primary Care Provider] - <Amber Hayes S - Last Filed: 10/25/17 19:58> Date of Encounter: 10/25/17 - Constitutional Vitals: Vital Signs Temp Pulse Resp BP Pulse Ox 10/25/17 18:49 99.2 F 121 15 108/56 94 10/25/17 15:14 98.4 F 97 14 116/73 97 10/25/17 15:12 98.4 F 97 14 116/73 97 10/25/17 10:32 98.2 F 89 14 129/75 94 10/25/17 07:44 98.2 F 77 14 116/74 96 10/25/17 03:28 97.9 F 77 15 110/67 94 10/24/17 22:49 97.5 F L 78 16 107/63 93 10/24/17 20:00 97.8 F 86 15 109/69 94 Intake and Output 10/25/17 10/25/17 10/25/17 07:59 15:59 23:59 Intake Total 450 / 450 544 / 544 360 / 360 Output Total 700 / 700 0 / 0 0 / 0 Balance -250 / -250 544 / 544 360 / 360 Intake: IV Fluids 210 / 210 304 / 304 Adriamycin 27 MG Etoposide 135 98 / 98 169 / 169 mg VinCRIStine 0.5 MG In 0.9 % Sodium Chloride [place] Bg 500 ML @ 24 mls/hr IV ONCE(ONC) RICH Rx#:[id number] 0.9 % Sodium Chloride 500 ML @ 112 / 112 135 / 135 25 MLS/HR 25 mls/hr IVC .Q20H RICH Rx#:[id number] Oral 240 / 240 240 / 240 360 / 360 Output: Urine 700 / 700 0 / 0 0 / 0 Other: Meal Dinner Percent of Meal Consumed 25% Blood Glucose* 130 170 Oncology: Obj Data - Labs Labs: Laboratory Results - last 24 hr 10/24/17 10/24/17 10/25/17 19:57 23:07 07:39 POC Glucose 304 H 264 H 130 H 10/25/17 10/25/17 10:28 15:47 POC Glucose 249 H 170 H - Impressions Impressions Chemotherapy Admin, Fluoroscopy Guided 10/25/17 00:00 IMPRESSION: Successful fluoroscopic guided lumbar puncture at the level of L4-L5, with methotrexate injection. D/ / Stephen Diallo MD / Stephen Diallo MD Interpreting Provider: Stephen Diallo MD - Attending Attestation Stage I Burkitt's lymphoma area day 2 I examined this patient and my medical decision-making was reviewed with the Advanced Practice Nurse. I agree with the documented findings, disposition and treatment plan as described except to the extent set forth below. 1. Stage I Burkitt's lymphoma from stomach. Cycle 5 day 2 chemotherapy today. CBC stable. He tolerated intrathecal methotrexate 12 mg well. He received Benadryl 50 mg IV and did not have any allergic reaction
--- NOTE | 2017-10-25 14:56 | Internal Med Progress Note ---
<Db Gray - Last Filed: 10/25/17 14:51> Date of Encounter: 10/25/17 Time of Encounter: 14:51 - Assessment and plan (1) Burkitts lymphoma Current Visit: Yes Status: Chronic Assessment and plan: 42-year-old gentleman with diagnosis of Burkitt's lymphoma. Patient is direct admit from cancer Center for administration of cycle of chemotherapy. Had intrathecal methotrexate administered today. Afterwards developed a headache. Ordering ibuprofen when necessary for headache. Oncology on board. Qualifiers: Lymphoma site: extranodal excluding spleen and other solid organs Qualified Code(s): C83.79 - Burkitt lymphoma, extranodal and solid organ sites (2) Tobacco dependence Current Visit: Yes Status: Chronic Assessment and plan: Continue nicotine patch. (3) GERD (gastroesophageal reflux disease) Current Visit: Yes Status: Chronic Assessment and plan: Patient has a history of gastric reflux disease. Currently controlled. We will continue pantoprazole IV Regular diet. Qualifiers: Esophagitis presence: with esophagitis Qualified Code(s): K21.0 - Gastro- esophageal reflux disease with esophagitis (4) Hypertension Current Visit: Yes Status: Chronic Assessment and plan: Controlled. Continue lisinopril. Qualifiers: Hypertension type: essential hypertension Qualified Code(s): I10 - Essential (primary) hypertension (5) Anxiety about health Current Visit: Yes Status: Chronic Assessment and plan: Currently patient denies anxiety or depression. Patient reports he does not take soft anymore. Discontinue Zoloft (6) DVT prophylaxis Current Visit: Yes Status: Acute Assessment and plan: ambulate 3x/day - Time Spent With Patient Total time spent is greater than 50% in coordination of care (as documented) at patient's floor/unit and/or counseling patient: - Subjective Interval history: Patient had no acute events overnight. He denies any reactions to chemotherapy. Plan is to undergo intrathecal methotrexate. He denies headache , chest pain, shortness of breath, abdominal pain this morning. He is tolerating his diet. - Constitutional Vitals: Temp Pulse Resp BP Pulse Ox 98.2 F 89 14 129/75 94 10/25/17 10:32 10/25/17 10:32 10/25/17 10:32 10/25/17 10:32 10/25/17 10:32 - Other Additional findings: General: without distress Heart: Regular rate and rhythm with no murmur Lungs: Clear to auscultation bilaterally Abdomen: Soft nontender, nondistended positive bowel sounds Skin: warm and dry, absent rash Extremities: Absent pedal edema, Neuro: Alert oriented 3 Vascular: Pedal and radial pulses 2 out of 4 Internal Medicine: Result - Impressions Impressions Chemotherapy Admin, Fluoroscopy Guided 10/25/17 00:00 IMPRESSION: Successful fluoroscopic guided lumbar puncture at the level of L4-L5, with methotrexate injection. D/ / Stephen Diallo MD / Stephen Diallo MD Interpreting Provider: Stephen Diallo MD Consult Discharge Plan - Plan Referrals: Lanny Stout SENIOR ADVOCATE [Primary Care Provider] - <Karen Gallegos - Last Filed: 10/25/17 23:04> Date of Encounter: 10/25/17 - Assessment and plan (1) Burkitts lymphoma Current Visit: Yes Status: Chronic Qualifiers: Lymphoma site: extranodal excluding spleen and other solid organs Qualified Code(s): C83.79 - Burkitt lymphoma, extranodal and solid organ sites (2) Tobacco dependence Current Visit: Yes Status: Chronic (3) GERD (gastroesophageal reflux disease) Current Visit: Yes Status: Chronic Qualifiers: Esophagitis presence: with esophagitis Qualified Code(s): K21.0 - Gastro- esophageal reflux disease with esophagitis (4) Hypertension Current Visit: Yes Status: Chronic Qualifiers: Hypertension type: essential hypertension Qualified Code(s): I10 - Essential (primary) hypertension (5) Anxiety about health Current Visit: Yes Status: Chronic (6) DVT prophylaxis Current Visit: Yes Status: Acute - Time Spent With Patient Total time spent is greater than 50% in coordination of care (as documented) at patient's floor/unit and/or counseling patient: - Constitutional Vitals: Temp Pulse Resp BP Pulse Ox 98.4 F 105 15 112/64 94 10/25/17 22:49 10/25/17 22:49 10/25/17 22:49 10/25/17 22:49 10/25/17 22:49 Internal Medicine: Result - Impressions Impressions Chemotherapy Admin, Fluoroscopy Guided 10/25/17 00:00 IMPRESSION: Successful fluoroscopic guided lumbar puncture at the level of L4-L5, with methotrexate injection. D/ / Stephen Diallo MD / Stephen Diallo MD Interpreting Provider: Stephen Diallo MD - Attending Attestation I examined this patient and my medical decision-making was reviewed with the Resident Physician. I agree with the documented findings, disposition and treatment plan as described except to the extent set forth below.
[2017-10-25] MEDS: DOXORUBICIN HCL IV SCH (16:04)
[2017-10-25] MEDS: VINCRISTINE IV SCH (16:04)
[2017-10-25] MEDS: ETOPOSIDE IV SCH (16:04)
[2017-10-25] MEDS: [UNRECOGNIZED DRUG - OTHER] IV SCH (16:04)
[2017-10-26] MEDS: 0.9 % Sodium Chloride 500 ML IVC SCH ×2 (07:30→16:39)
[2017-10-26] MEDS: Insulin LISPRO 300 UNITS/3 ML VIAL SQ SCH ×4 (07:31→21:46)
[2017-10-26] MEDS: Nicotine 21 MG PATCH.TD24 TD SCH (07:46)
[2017-10-26] MEDS: Pantoprazole 40 MG VIAL IVP SCH (07:48)
[2017-10-26] MEDS: Psyllium 1 PACKET POWD.PACK PO SCH (07:48)
[2017-10-26] MEDS: Loratadine 10 MG TABLET PO SCH (07:48)
--- NOTE | 2017-10-26 07:48 | Internal Med Progress Note ---
<Db Gray - Last Filed: 10/26/17 07:46> Date of Encounter: 10/26/17 Time of Encounter: 07:46 - Assessment and plan (1) Burkitts lymphoma Current Visit: Yes Status: Chronic Assessment and plan: 42-year-old gentleman with diagnosis of Burkitt's lymphoma. Patient is direct admit from cancer Center for administration of cycle of chemotherapy. Had intrathecal methotrexate administered today. Afterwards developed a headache. -Headache resolved -Continue when necessary ibuprofen Oncology on board. Qualifiers: Lymphoma site: extranodal excluding spleen and other solid organs Qualified Code(s): C83.79 - Burkitt lymphoma, extranodal and solid organ sites (2) Tobacco dependence Current Visit: Yes Status: Chronic Assessment and plan: Continue nicotine patch. (3) GERD (gastroesophageal reflux disease) Current Visit: Yes Status: Chronic Assessment and plan: Patient has a history of gastric reflux disease. Currently controlled. We will continue pantoprazole IV Regular diet. Qualifiers: Esophagitis presence: with esophagitis Qualified Code(s): K21.0 - Gastro- esophageal reflux disease with esophagitis (4) Hypertension Current Visit: Yes Status: Chronic Assessment and plan: Controlled. Continue lisinopril. Qualifiers: Hypertension type: essential hypertension Qualified Code(s): I10 - Essential (primary) hypertension (5) Anxiety about health Current Visit: Yes Status: Chronic Assessment and plan: Currently patient denies anxiety or depression. Patient reports he does not take soft anymore. Discontinue Zoloft (6) DVT prophylaxis Current Visit: Yes Status: Acute Assessment and plan: ambulate 3x/day - Time Spent With Patient Total time spent is greater than 50% in coordination of care (as documented) at patient's floor/unit and/or counseling patient: - Subjective Interval history: Patient developed sinus tachycardia after administration of intrathecal methotrexate but this has not resolved. Patient's headache has resolved. He denies chest pain, shortness of breath, abdominal pain. He is tolerating his diet. - Constitutional Vitals: Temp Pulse Resp BP Pulse Ox 97.7 F 80 16 119/74 97 10/26/17 07:03 10/26/17 07:03 10/26/17 07:03 10/26/17 07:03 10/26/17 07:03 - Other Additional findings: General: without distress Heart: Regular rate and rhythm with no murmur Lungs: Clear to auscultation bilaterally Abdomen: Soft nontender, nondistended positive bowel sounds Skin: warm and dry, absent rash Extremities: Absent pedal edema, Neuro: Alert oriented 3 Vascular: Pedal and radial pulses 2 out of 4 Internal Medicine: Result - Impressions Impressions Chemotherapy Admin, Fluoroscopy Guided 10/25/17 00:00 IMPRESSION: Successful fluoroscopic guided lumbar puncture at the level of L4-L5, with methotrexate injection. D/ / Stephen Diallo MD / Stephen Diallo MD Interpreting Provider: Stephen Diallo MD Consult Discharge Plan - Plan Referrals: Lanny Stout DISABILITY ADVOCATE [Primary Care Provider] - <Karen Gallegos - Last Filed: 10/26/17 18:57> Date of Encounter: 10/26/17 - Assessment and plan (1) Burkitts lymphoma Current Visit: Yes Status: Chronic Qualifiers: Lymphoma site: extranodal excluding spleen and other solid organs Qualified Code(s): C83.79 - Burkitt lymphoma, extranodal and solid organ sites (2) Tobacco dependence Current Visit: Yes Status: Chronic (3) GERD (gastroesophageal reflux disease) Current Visit: Yes Status: Chronic Qualifiers: Esophagitis presence: with esophagitis Qualified Code(s): K21.0 - Gastro- esophageal reflux disease with esophagitis (4) Hypertension Current Visit: Yes Status: Chronic Qualifiers: Hypertension type: essential hypertension Qualified Code(s): I10 - Essential (primary) hypertension (5) Anxiety about health Current Visit: Yes Status: Chronic (6) DVT prophylaxis Current Visit: Yes Status: Acute - Time Spent With Patient Total time spent is greater than 50% in coordination of care (as documented) at patient's floor/unit and/or counseling patient: - Constitutional Vitals: Temp Pulse Resp BP Pulse Ox 98.3 F 97 16 119/77 94 10/26/17 15:36 10/26/17 15:36 10/26/17 15:36 10/26/17 15:36 10/26/17 15:36 - Attending Attestation I examined this patient and my medical decision-making was reviewed with the Resident Physician. I agree with the documented findings, disposition and treatment plan as described except to the extent set forth below.
[2017-10-26] MEDS: methylPREDNISolone 125 MG/2 ML VIAL IVP SCH (07:49)
[2017-10-26] MEDS ORDERED: ETOPOSIDE IV SCH (13:00)
[2017-10-26] MEDS ORDERED: VINCRISTINE IV SCH (13:00)
[2017-10-26] MEDS ORDERED: [UNRECOGNIZED DRUG - OTHER] IV SCH (13:00)
[2017-10-26] MEDS ORDERED: DOXORUBICIN HCL IV SCH (13:00)
[2017-10-26] MEDS: VINCRISTINE IV SCH (16:15)
[2017-10-26] MEDS: [UNRECOGNIZED DRUG - OTHER] IV SCH (16:15)
[2017-10-26] MEDS: ETOPOSIDE IV SCH (16:15)
[2017-10-26] MEDS: DOXORUBICIN HCL IV SCH (16:15)
[2017-10-27] MEDS: Insulin LISPRO 300 UNITS/3 ML VIAL SQ SCH ×4 (07:45→21:52)
[2017-10-27] MEDS: Nicotine 21 MG PATCH.TD24 TD SCH (09:27)
[2017-10-27] MEDS: Psyllium 1 PACKET POWD.PACK PO SCH (09:28)
[2017-10-27] MEDS: Loratadine 10 MG TABLET PO SCH (09:34)
[2017-10-27] MEDS: methylPREDNISolone 125 MG/2 ML VIAL IVP SCH (09:34)
[2017-10-27] MEDS: Pantoprazole 40 MG VIAL IVP SCH (09:36)
--- NOTE | 2017-10-27 10:08 | Internal Med Progress Note ---
<Db Gray - Last Filed: 10/27/17 10:06> Date of Encounter: 10/27/17 Time of Encounter: 10:06 - Assessment and plan (1) Burkitts lymphoma Current Visit: Yes Status: Chronic Assessment and plan: 42-year-old gentleman with diagnosis of Burkitt's lymphoma. Patient is direct admit from cancer Center for administration of cycle of chemotherapy. Oncology on board. Qualifiers: Lymphoma site: extranodal excluding spleen and other solid organs Qualified Code(s): C83.79 - Burkitt lymphoma, extranodal and solid organ sites (2) Tobacco dependence Current Visit: Yes Status: Chronic Assessment and plan: Continue nicotine patch. (3) GERD (gastroesophageal reflux disease) Current Visit: Yes Status: Chronic Assessment and plan: Patient has a history of gastric reflux disease. Currently controlled. We will continue pantoprazole IV Regular diet. Qualifiers: Esophagitis presence: with esophagitis Qualified Code(s): K21.0 - Gastro- esophageal reflux disease with esophagitis (4) Hypertension Current Visit: Yes Status: Chronic Assessment and plan: Controlled. Continue lisinopril. Qualifiers: Hypertension type: essential hypertension Qualified Code(s): I10 - Essential (primary) hypertension (5) Anxiety about health Current Visit: Yes Status: Resolved Assessment and plan: patient reports he does not have anxiety or depression (6) Diabetes mellitus Current Visit: Yes Status: Chronic Assessment and plan: patient was hyperglycemic yesterday added basal levemir 5 units continue SSI Qualifiers: Diabetes mellitus type: type 2 Diabetes mellitus adjunct faculty for medical terminology insulin use: without long-term use Diabetes mellitus complication status: without complication Qualified Code(s): E11.9 - Type 2 diabetes mellitus without complications (7) DVT prophylaxis Current Visit: Yes Status: Acute Assessment and plan: ambulate 3x/day - Time Spent With Patient Total time spent is greater than 50% in coordination of care (as documented) at patient's floor/unit and/or counseling patient: - Subjective Interval history: No acute events overnight. Patient sitting in bed watching TV. He looks very comfortable. He denies headache, chest pain, shortness of breath, abdominal pain. He is tolerating his diet. He is having bowel movements and denies problems with urination. - Constitutional Vitals: Temp Pulse Resp BP Pulse Ox 98.3 F 80 15 108/67 96 07/05/18 06:46 10/27/17 06:46 10/27/17 06:46 10/27/17 06:46 10/27/17 06:46 - Other Additional findings: General: plesant without distress Heart: Regular rate and rhythm with no murmur Lungs: Clear to auscultation bilaterally Abdomen: Soft nontender, nondistended positive bowel sounds Skin: warm and dry, absent rash Extremities: Absent pedal edema Neuro: alert oriented x3 Vascular: Pedal and radial pulses 2 out of 4 Consult Discharge Plan - Plan Referrals: Lanny Stout, RESTAURANT WORKER [Primary Care Provider] - <Karen Gallegos - Last Filed: 10/27/17 18:27> Date of Encounter: 10/27/17 - Assessment and plan (1) Burkitts lymphoma Current Visit: Yes Status: Chronic Qualifiers: Lymphoma site: extranodal excluding spleen and other solid organs Qualified Code(s): C83.79 - Burkitt lymphoma, extranodal and solid organ sites (2) Tobacco dependence Current Visit: Yes Status: Chronic (3) GERD (gastroesophageal reflux disease) Current Visit: Yes Status: Chronic Qualifiers: Esophagitis presence: with esophagitis Qualified Code(s): K21.0 - Gastro- esophageal reflux disease with esophagitis (4) Diabetes mellitus Current Visit: Yes Status: Chronic Qualifiers: Diabetes mellitus type: type 2 Diabetes mellitus adjunct faculty for medical terminology insulin use: without adjunct faculty for medical terminology use Diabetes mellitus complication status: without complication Qualified Code(s): E11.9 - Type 2 diabetes mellitus without complications (5) Hypertension Current Visit: Yes Status: Chronic Qualifiers: Hypertension type: essential hypertension Qualified Code(s): I10 - Essential (primary) hypertension (6) Anxiety about health Current Visit: Yes Status: Resolved (7) DVT prophylaxis Current Visit: Yes Status: Acute - Time Spent With Patient Total time spent is greater than 50% in coordination of care (as documented) at patient's floor/unit and/or counseling patient: - Constitutional Vitals: Temp Pulse Resp BP Pulse Ox 98.6 F 92 15 130/85 95 10/27/17 14:07 10/27/17 14:07 10/27/17 14:07 10/27/17 14:07 10/27/17 14:07 - Attending Attestation I examined this patient and my medical decision-making was reviewed with the Resident Physician. I agree with the documented findings, disposition and treatment plan as described except to the extent set forth below.
--- NOTE | 2017-10-27 13:42 | Oncology Inp Progress Note ---
Date of Encounter: 10/27/17 Time of Encounter: 13:00 (1) Burkitts lymphoma Current Visit: Yes Status: Chronic Assessment and plan: Clinical stage Iea Burkitt lymphoma involving the stomach. Treatment intent curative. Mr. Robison presents for cycle #5 of dose adjusted R-EPOCH with IT MTX on day 2 ( omit day 5) initiated on 10/24/2017. He tolerated his IT MTX procedure on 10/25 quite well with no symptoms of spinal headache. He denies abdominal pain and has no signs of acute abdomen. His steroid dose has been decreased by 50% following his perforated diverticulum which unfortunately complicated cycle #3, cycle #4 went exceptionally well without any unexpected events. Continue metamucil BID along with senokot daily. Counts stable, no new symptoms as detailed in HPI. He is mobile and does not require lovenox. He will plan to discharge tomorrow following completion of his chemotherapy infusion. He will follow up with Dr. Schreiber as planned on Tuesday, October 31 with Neulasta administration and further lab work to follow. Qualifiers: Lymphoma site: extranodal excluding spleen and other solid organs Qualified Code(s): C83.79 - Burkitt lymphoma, extranodal and solid organ sites Oncology: Subj Interval history: Mr. Robison is resting on the side of the bed, visiting with friends at bedside. He denies pain, mouth sores, nausea, vomiting, diarrhea, constipation, headache or abdominal pain. He reports mild back pain that has been present for a couple of weeks "since his spinal headache" and dry/itchy eyes. Will order artificial tears to assist with his dry eye irritation. He reports feeling fatigued as expected. He has been ambulating down hallways often. He reports regular bowel movements. No new or concerning symptoms, he is otherwise doing quite well - Constitutional Vitals: Vital Signs Temp Pulse Resp BP Pulse Ox 10/27/17 10:41 97.8 F 79 15 119/74 96 10/27/17 06:46 98.3 F 80 15 108/67 96 10/27/17 04:07 97.8 F 78 16 121/76 98 10/26/17 23:51 97.2 F L 78 17 103/61 94 10/26/17 19:26 98.3 F 87 17 127/79 97 10/26/17 15:36 98.3 F 97 16 119/77 94 Intake and Output 10/26/17 10/27/17 10/27/17 23:59 07:59 15:59 Intake Total 465 / 465 500 / 500 360 / 360 Output Total 1000 / 1000 Balance 465 / 465 -500 / -500 360 / 360 Intake: IV Fluids 225 / 225 0.9 % Sodium Chloride 500 ML @ 225 / 225 25 MLS/HR 25 mls/hr IVC .Q20H RICH Rx#:[id number] Oral 240 / 240 500 / 500 360 / 360 Output: Urine 1000 / 1000 Other: Meal Dinner Breakfast Percent of Meal Consumed 100% 5% Weight 116.5 kg Blood Glucose* 274 100 108 General appearance: cooperative, no acute distress, no febrile - Head Head exam: Present: atraumatic - ENT ENT exam: Present: mucous membranes moist, normal oropharynx - Respiratory Respiratory exam: Present: CTAB. Absent: respiratory distress - Cardiovascular Cardiovascular exam: Present: RRR, +S1, +S2 - GI/Abdominal GI/Abdominal exam: Present: normal bowel sounds, soft. Absent: guarding, rebound, tenderness - Extremities Exam Extremities exam: Present: normal inspection. Absent: calf tenderness - Neurological Exam Neurological exam: Present: alert, oriented X3, no focal deficits, strengths equal and symetr throughout - Psychiatric Psychiatric exam: Present: normal affect, normal mood - Skin Skin exam: Present: dry, intact, normal color, warm Oncology: Obj Data - Labs Labs: Laboratory Results - last 24 hr 10/26/17 10/26/17 16:12 21:06 POC Glucose 258 H 274 H Consult Discharge Plan - Plan Referrals: Lanny Stout, ESL INSTRUCTIONAL ASSISTANT [Primary Care Provider] -
[2017-10-27] MEDS ORDERED: DOXORUBICIN HCL IV SCH (14:00)
[2017-10-27] MEDS ORDERED: ETOPOSIDE IV SCH (14:00)
[2017-10-27] MEDS ORDERED: VINCRISTINE IV SCH (14:00)
[2017-10-27] MEDS ORDERED: [UNRECOGNIZED DRUG - OTHER] IV SCH (14:00)
[2017-10-27] MEDS: Artificial Tears SOLN 15 ML BOTTLE BOTH EYES SCH ×3 (16:17→21:52)
[2017-10-27] MEDS ORDERED: Insulin DETEMIR 100 UNIT/ML X5UNITS SQ SCH ×2 (21:00)
--- NOTE | 2017-10-28 08:31 | Discharge Summary ---
<Db Gray - Last Filed: 10/28/17 08:53> - NOTES TO OUTPATIENT PROVIDER Notes to Outpatient Provider: Patient is admitted for administration of chemotherapy for Burkitt's lymphoma. He did not have any adverse reactions. Date of Encounter: 10/28/17 Time of Encounter: 08:48 - Discharge Diagnosis (1) Burkitts lymphoma Priority: Primary Status: Chronic Qualifiers: Lymphoma site: extranodal excluding spleen and other solid organs Qualified Code(s): C83.79 - Burkitt lymphoma, extranodal and solid organ sites (2) Tobacco dependence Priority: Secondary Status: Chronic (3) GERD (gastroesophageal reflux disease) Priority: Secondary Status: Chronic Qualifiers: Esophagitis presence: with esophagitis Qualified Code(s): K21.0 - Gastro- esophageal reflux disease with esophagitis (4) Hypertension Priority: Secondary Status: Chronic Qualifiers: Hypertension type: essential hypertension Qualified Code(s): I10 - Essential (primary) hypertension (5) Anxiety about health Priority: Secondary Status: Resolved (6) Diabetes mellitus Priority: Secondary Status: Chronic Qualifiers: Diabetes mellitus type: type 2 Diabetes mellitus middle or intermediate school principal insulin use: without middle or intermediate school principal use Diabetes mellitus complication status: without complication Qualified Code(s): E11.9 - Type 2 diabetes mellitus without complications (7) DVT prophylaxis Priority: Secondary Status: Acute Hospital course: Mr. Robison is a 42 year old male admitted from hematology oncology office for administration of chemotherapy for Burkitt's lymphoma. Patient did not have any severe adverse reaction. He did develop a headache after intrathecal methotrexate. However this quickly resolved ibuprofen. He is tolerating his diet and is ambulating independently. He is having bowel movements and denies any issues with urination. Oncology already has a appointment set up for follow -up. He will be discharged today after getting his last dose of chemotherapy. - Time Spent with Patient Total time spent providing and/or coordinating discharge services: - Discharge Medications Home Medications: Loratadine [Claritin] 10 mg PO DAILY 08/15/17 [History] Promethazine [Phenergan] 25 mg Q6HR PRN 08/15/17 [History] Tramadol HCl [Ultram] 50 mg Q8HR PRN 08/15/17 [History] Docusate [Colace] 200 mg PO DAILY 10/03/17 [History] Lisinopril [Zestril] 10 mg PO DAILY #30 tablet 10/03/17 [Rx] Pantoprazole Sodium [Protonix] 40 mg PO DAILY #30 tablet. 10/03/17 [Rx] Psyllium Husk [Metamucil] 660 gm PO DAILY 10/10/17 [History] LORazepam [Ativan] 0.5 mg PO BID PRN 30 Days #60 tablet 10/17/17 [Rx] Allergies/Adverse Reactions: 3 Allergy/AdvReac Type Severity Reaction Status Date / Time No Known Allergies Allergy Verified 10/19/17 08:07 Date of admission: 10/24/17 09:59 Primary care physician: Lanny Stout CNP Consults: 10/24/17 11:35 Consult to Physician [CONS] Routine Consulting Provider: Pierre Schreiber Reason for Consult: patient direct admit from cancer center for chemotheraphy Call Completed: Yes Discharging clinician: Db Gray Anticipated date of discharge: 10/28/17 - Constitutional Vitals: Temp Pulse Resp BP Pulse Ox 98.4 F 104 14 119/78 99 10/28/17 07:00 10/28/17 07:00 10/28/17 07:00 10/28/17 07:00 10/28/17 07:00 - Other Additional findings: General: without distress HEENT: Head atraumatic, normocephalic, EOMI, PERRL, neck nontender to palpation , absent lymphadenopathy, Moist Mucous Membranes, Heart: Regular rate and rhythm with no murmur Lungs: Clear to auscultation bilaterally Abdomen: Soft nontender, nondistended positive bowel sounds Skin: warm and dry, absent rash Extremities: Absent pedal edema, Neuro: Cranial nerves II through XII intact, UE and LE sensation equal bilaterally, UE and LEstrength 5/5, alert oriented 3, Vascular: Pedal and radial pulses 2 out of 4 - Patient Status Disposition: Home, Self-Care Condition: Good Functional capacity at discharge: independent ambulation Overall status at discharge: patient is progressing back to baseline - Discharge Instructions Follow Up With: Lanny Stout CNP [Primary Care Provider] - Pierre Schreiber MD [Partnered Physician] - 10/31/17 10:30 am (Will get the Neulasta after this appointment. Thank you) Forms: Work/School Release - Diet and Activity Activity: increase activity as tolerated Diet: advance to your usual diet - VTE Reasons for not Prescribing Prophylaxis: Treatment not Indicated - Low risk for VTE <Karen Gallegos - Last Filed: 10/28/17 19:09> Date of Encounter: 10/28/17 - Discharge Diagnosis (1) Burkitts lymphoma Status: Chronic Qualifiers: Lymphoma site: extranodal excluding spleen and other solid organs Qualified Code(s): C83.79 - Burkitt lymphoma, extranodal and solid organ sites (2) Tobacco dependence Status: Chronic (3) GERD (gastroesophageal reflux disease) Status: Chronic Qualifiers: Esophagitis presence: with esophagitis Qualified Code(s): K21.0 - Gastro- esophageal reflux disease with esophagitis (4) Diabetes mellitus Status: Chronic Qualifiers: Diabetes mellitus type: type 2 Diabetes mellitus middle or intermediate school principal insulin use: without middle or intermediate school principal use Diabetes mellitus complication status: without complication Qualified Code(s): E11.9 - Type 2 diabetes mellitus without complications (5) Hypertension Status: Chronic Qualifiers: Hypertension type: essential hypertension Qualified Code(s): I10 - Essential (primary) hypertension (6) Anxiety about health Status: Resolved (7) DVT prophylaxis Status: Acute Hospital course: Mr. Robison is a 42 year old male - Time Spent with Patient Total time spent providing and/or coordinating discharge services: Date of admission: 10/24/17 09:59 Primary care physician: Lanny Stout CNP Consults: 10/24/17 11:35 Consult to Physician [CONS] Routine Consulting Provider: Pierre Schreiber Reason for Consult: patient direct admit from cancer center for chemotheraphy Call Completed: Yes - Constitutional Vitals: Temp Pulse Resp BP Pulse Ox 98.7 F 91 16 141/84 95 10/28/17 18:28 10/28/17 18:28 10/28/17 18:28 10/28/17 18:28 10/28/17 18:28 - Attending Attestation I examined this patient and my medical decision-making was reviewed with the Resident Physician. I agree with the documented findings, disposition and treatment plan as described except to the extent set forth below.
[2017-10-28] MEDS: Loratadine 10 MG TABLET PO SCH (08:53)
[2017-10-28] MEDS: Insulin LISPRO 300 UNITS/3 ML VIAL SQ SCH ×3 (08:54→16:46)
[2017-10-28] MEDS: Psyllium 1 PACKET POWD.PACK PO SCH (08:55)
[2017-10-28] MEDS: Nicotine 21 MG PATCH.TD24 TD SCH (08:55)
[2017-10-28] MEDS: methylPREDNISolone 125 MG/2 ML VIAL IVP SCH (08:55)
[2017-10-28] MEDS: Pantoprazole 40 MG VIAL IVP SCH (08:55)
[2017-10-28] MEDS: 0.9 % Sodium Chloride 500 ML IVC SCH (09:13)
[2017-10-28] MEDS: Artificial Tears SOLN 15 ML BOTTLE BOTH EYES SCH (09:14)
--- NOTE | 2017-10-28 14:05 | Oncology Inp Progress Note ---
Date of Encounter: 10/28/17 Time of Encounter: 10:30 (1) Burkitts lymphoma Current Visit: Yes Status: Chronic Assessment and plan: Clinical stage Iea Burkitt lymphoma involving the stomach. Treatment intent curative. Mr. Robison presents for cycle #5 of dose adjusted R-EPOCH with IT MTX on day 2 ( omit day 5) initiated on 10/24/2017. He tolerated his IT MTX procedure on 10/25 quite well with no symptoms of spinal headache. He denies abdominal pain and has no signs of acute abdomen. His steroid dose has been decreased by 50% following his perforated diverticulum which unfortunately complicated cycle #3, cycle #4 went exceptionally well without any unexpected events. Continue metamucil BID along with senokot daily. Counts stable, he reports no new symptoms as detailed in HPI. He is mobile and does not require lovenox. He is planned for discharge today following completion of his chemotherapy infusion. He will follow up with Dr. Schreiber as planned on Tuesday, October 31 with Neulasta administration and further lab work to follow. Qualifiers: Lymphoma site: extranodal excluding spleen and other solid organs Qualified Code(s): C83.79 - Burkitt lymphoma, extranodal and solid organ sites Oncology: Subj Interval history: Mr. Robison is doing well today with no complaints. He had a normal BM this morning, he denies nausea, vomiting, abdominal pain, constipation, diarrhea or headache. He is planned for discharge today following completion of his chemotherapy. - Constitutional Vitals: Vital Signs Temp Pulse Resp BP Pulse Ox 10/28/17 12:07 98.1 F 82 14 126/79 92 10/28/17 07:00 98.4 F 104 14 119/78 99 10/28/17 04:47 97.6 F 80 14 114/68 98 10/27/17 23:40 97.6 F 81 16 133/81 96 10/27/17 20:04 97.5 F L 97 14 129/80 96 10/27/17 14:07 98.6 F 92 15 130/85 95 Intake and Output 10/27/17 10/28/17 10/28/17 23:59 07:59 15:59 Intake Total 600 / 600 0 / 0 Output Total 1500 / 1500 1300 / 1300 Balance -900 / -900 0 / 0 -1300 / -1300 Intake: Oral 600 / 600 0 / 0 Output: Urine 1500 / 1500 1300 / 1300 Other: # Voids 2 Weight 116.3 kg Blood Glucose* 225 101 126 Patient Weight 10/28/17 23:59 Weight 116.3 kg General appearance: cooperative, no acute distress, no febrile - Head Head exam: Present: atraumatic - Respiratory Respiratory exam: Present: CTAB. Absent: respiratory distress - Cardiovascular Cardiovascular exam: Present: RRR, +S1, +S2 - GI/Abdominal GI/Abdominal exam: Present: normal bowel sounds, soft. Absent: guarding, rebound, tenderness - Extremities Exam Extremities exam: Present: normal inspection. Absent: calf tenderness - Neurological Exam Neurological exam: Present: alert, oriented X3, no focal deficits, strengths equal and symetr throughout - Psychiatric Psychiatric exam: Present: normal affect, normal mood - Skin Skin exam: Present: dry, intact, normal color, warm Oncology: Obj Data - Labs Labs: Laboratory Results - last 24 hr 10/27/17 10/27/17 10/27/17 06:50 11:21 16:05 POC Glucose 100 H 108 H 325 H 10/27/17 10/28/17 10/28/17 21:41 07:25 12:02 POC Glucose 225 H 101 H 126 H Consult Discharge Plan - Plan Referrals: Lanny Stout CNP [Primary Care Provider] - Pierre Schreiber MD [Partnered Physician] - 10/31/17 10:30 am (Will get the Neulasta after this appointment. Thank you)
[2017-10-28] MEDS ORDERED: SODIUM CHLORIDE 0.9% IV SCH (17:00)
[2017-10-28] MEDS ORDERED: CYCLOPHOSPHAMIDE IV SCH (17:00)
[2017-10-28 18:29] VITALS: BP 141/84
== END 2017-10-28 19:43 | disposition home or self-care (01) ==
LOC: 3ANU
PROVIDERS: ADMIT Internal Medicine; ATTEND Internal Medicine

== ENCOUNTER 2017-11-14 09:27 | Observation (INO) ==
[2017-11-14] MEDS ORDERED: SODIUM CHLORIDE 0.9% IV SCH (11:45)
[2017-11-14] MEDS ORDERED: Acetaminophen 325 MG TABLET PO SCH (11:45)
[2017-11-14] MEDS ORDERED: RITUXIMAB IV SCH (11:45)
[2017-11-14] MEDS ORDERED: Famotidine 20 MG/2 ML VIAL IV PRN (11:46)
[2017-11-14] MEDS ORDERED: Dexamethasone 10 MG/ML VIAL IV PRN ×2 (11:46→12:15)
[2017-11-14] MEDS ORDERED: *HR* LORazepam 2 MG/ML VIAL IV PRN (11:48)
[2017-11-14] MEDS ORDERED: Prochlorperazine 10 MG/2 ML VIAL IV PRN (11:49)
[2017-11-14] MEDS ORDERED: *HR* Promethazine 25 MG/ML VIAL IV PRN (11:50)
[2017-11-14] MEDS ORDERED: Naloxone 0.4 MG/ML INJ IVP PRN (12:01)
[2017-11-14] MEDS ORDERED: traMADol 50 MG TABLET PO PRN (12:07)
--- NOTE | 2017-11-14 12:07 | Internal Med History&Physical ---
Date of Encounter: 11/14/17 Time of Encounter: 11:59 Internal Medicine - H&P: HPI Chief complaint: Burkitt's lymphoma; chemotherapy therapy Admitted From: Home Plans for Post Hospital Care: Home History of present illness: Mr. Robison is a 42 year old male with a PMH of hypertension, diabetes, GERD, tobacco abuse and Burkitt's lymphoma. Presents from cancer Center as a direct admission for cycle #6 of chemotherapy. Patient denies any weight loss, changes in appetite, nausea, vomiting, night sweats, chest pain, shortness of breath, cough. Reports fatigue initially after administration of chemotherapy reports that it improves within 72 hours of cessation of chemotherapy. He will be admitted as inpatient as he will require daily administration Tuesday through Tuesday this week. Past Med Surg Social Fam HX - Past Medical History Medical history: GERD, hypertension Psychiatric history: anxiety - Past Surgical History Surgical History: non-contributory Additional surgical history: tumor removed from eye - Social History Smoking Status: Former smoker Smokeless Tobacco Status: No Alcohol use: none Drug use: none - Family History Mother Hx Family Endocrine Disorder: Yes (Diabetes) Internal Medicine - H&P: Meds Loratadine [Claritin] 10 mg PO DAILY 08/15/17 [History] Promethazine [Phenergan] 25 mg Q6HR PRN 08/15/17 [History] Tramadol HCl [Ultram] 50 mg Q8HR PRN 08/15/17 [History] Docusate [Colace] 200 mg PO DAILY 10/03/17 [History] Lisinopril [Zestril] 10 mg PO DAILY #30 tablet 10/03/17 [Rx] Pantoprazole Sodium [Protonix] 40 mg PO DAILY #30 tablet. 10/03/17 [Rx] Psyllium Husk [Metamucil] 660 gm PO DAILY 10/10/17 [History] LORazepam [Ativan] 0.5 mg PO BID PRN 30 Days #60 tablet 10/17/17 [Rx] 3 Allergy/AdvReac Type Severity Reaction Status Date / Time No Known Allergies Allergy Verified 11/14/17 08:59 All Systems PM: A 10-system review of systems was performed and is negative for pertinent findings except as documented above in the HPI. - Constitutional Constitutional: no chills, no fever(s), no night sweats - EENT Eyes: no change in vision, no discharge, no pain, no photophobia Ears: no ear discharge, no ear pain, no tinnitus Nose, mouth and throat: no dysphagia, no nasal discharge, no neck pain, no sore throat - Cardiovascular Cardiovascular ROS IM: no chest pain, no diaphoresis, no dyspnea, no lightheadedness, no palpitations, no syncope - Respiratory Respiratory: no cough, no dyspnea, no wheezing, no excessive phlegm production - Gastrointestinal Gastrointestinal: no abdominal pain, no diarrhea, no hematemesis, no hematochezia, no melena, no nausea, no vomiting - Musculoskeletal Musculoskeletal ROS IM: no numbness, no tingling - Integumentary Integumentary IM: no rash, no unusual bruising - Neurological Neurological ROS: no confusion, no convulsions, no focal weakness, no numbness, no tingling, no tremor(s) - Hematologic/Lymphatic Hematologic/Lymphatic: no easy bruising - Constitutional Vitals: Temp Pulse Resp BP Pulse Ox 97.9 F 91 18 121/73 96 11/14/17 11:10 11/14/17 11:10 11/14/17 11:10 11/14/17 11:10 11/14/17 11:10 - Head Head exam: Present: atraumatic, normocephalic - Eye Eye exam: Present: PERRL, conjuntiva pink, sclera anicteric Pupils: Present: PERRL - Neck Neck exam general surgery: Present: supple, trachea midline. Absent: lymphadenopathy - Respiratory Respiratory exam: Present: CTAB. Absent: accessory muscle use, rales, rhonchi, wheezes - Cardiovascular Cardiovascular exam: Present: RRR, +S1, +S2. Absent: diastolic murmur, gallop, rubs, systolic murmur - GI/Abdominal GI/Abdominal exam: Present: normal bowel sounds, soft, no peritoneal signs. Absent: distended, tenderness - Extremities Exam Extremities exam: Present: warm, radial pulses palpable and symmetrical. Absent : calf tenderness, cyanotic, pedal edema - Neurological Exam Neurological exam: Present: CN II-XII intact, oriented X3, no focal deficits. 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 Schreiber Requiring admission to receive cycle #6 of dose adjusted REPO CH chemotherapy -Oncology to follow while inpatient Check a.m. labs Continue anti-emetics Qualifiers: Lymphoma site: extranodal excluding spleen and other solid organs Qualified Code(s): C83.79 - Burkitt lymphoma, extranodal and solid organ sites (2) Diabetes mellitus Current Visit: No Status: Chronic Assessment and plan: History of diabetes mellitus Before meals and at bedtime Accu-Cheks, add sliding scale insulin coverage Qualifiers: Diabetes mellitus type: type 2 Diabetes mellitus exterminator termite insulin use: without exterminator termite use Diabetes mellitus complication status: without complication Qualified Code(s): E11.9 - Type 2 diabetes mellitus without complications (3) Hypertension Current Visit: No Status: Chronic Assessment and plan: History of HTN, BP stable. Continue anti-HTN meds Qualifiers: Hypertension type: essential hypertension Qualified Code(s): I10 - Essential (primary) hypertension (4) Obesity Current Visit: No Status: Chronic Assessment and plan: Discussed lifestyle modification Qualifiers: Obesity type: due to excess calories Obesity classification: adult class 2 (BMI 35 - 39.9) Serious obesity comorbidity presence: without serious comorbidity Body mass index: BMI 36.0-36.9 Qualified Code(s): E66.09 - Other obesity due to excess calories; Z68.36 - Body mass index (BMI) 36.0-36.9, adult (5) DVT prophylaxis Current Visit: No Status: Acute Assessment and plan: EPCD'S - Time Spent With Patient Total time spent is greater than 50% in coordination of care (as documented) at patient's floor/unit and/or counseling patient: 25 - 35 minutes
[2017-11-14] MEDS ORDERED: D5% in Water 1,000 ML IVC PRN (12:18)
[2017-11-14] MEDS ORDERED: Dextrose Gel 15 GM/37.5 ML TUBE PO PRN ×2 (12:18)
[2017-11-14] MEDS ORDERED: *HR* Dextrose 50 % in Water (Syg) 50 ML SYRINGE IVP PRN (12:18)
[2017-11-14] MEDS: methylPREDNISolone 125 MG/2 ML VIAL IVP SCH (12:24)
[2017-11-14] MEDS: 0.9 % Sodium Chloride 500 ML IVC SCH (12:31)
[2017-11-14] MEDS ORDERED: VINCRISTINE IV SCH (14:00)
[2017-11-14] MEDS ORDERED: [UNRECOGNIZED DRUG - OTHER] IV SCH (14:00)
[2017-11-14] MEDS ORDERED: DOXORUBICIN HCL IV SCH (14:00)
[2017-11-14] MEDS ORDERED: Fosaprepitant Dimeglumine 150 MG in 0.9 % Sodium Chloride 250 ML IV SCH (14:00)
[2017-11-14] MEDS ORDERED: ETOPOSIDE IV SCH (14:00)
[2017-11-14] MEDS ORDERED: *HR* LORazepam 0.5 MG TABLET PO PRN (14:07)
[2017-11-14] MEDS: Insulin LISPRO 300 UNITS/3 ML VIAL SQ SCH (20:36)
[2017-11-15] MEDS: Nicotine 21 MG PATCH.TD24 TD SCH (07:42)
[2017-11-15] MEDS: Loratadine 10 MG TABLET PO SCH (07:42)
[2017-11-15] MEDS: Psyllium 1 PACKET POWD.PACK PO SCH (07:42)
[2017-11-15] MEDS: methylPREDNISolone 125 MG/2 ML VIAL IVP SCH (07:43)
[2017-11-15] MEDS: 0.9 % Sodium Chloride 500 ML IVC SCH (07:43)
[2017-11-15 07:45] LABS: Lymphocytes % 2.6 %; Red Cell Distribution Width 14.9 % (11.5-14.5)
[2017-11-15 07:46] LABS: Basophils % 0.1 %; Hemoglobin 10.9 g/dL (12.9-16.9); Immature Granulocytes % 2.1 % (0-4); Lymphocytes # 0.8 K/mcL (0.6-4.6); Mean Corpuscular HGB Conc 34.1 g/dL (31.6-35.5); Mean Corpuscular Hemoglobin 30.8 pg (28.0-33.3); Mean Corpuscular Volume 90.4 fL (83.0-100.0); Monocytes % 3.3 %; Platelet Count 291 K/mcL (140-400); Red Blood Count 3.54 M/mcL (4.19-5.50); Segmented Neutrophils % 91.9 %
[2017-11-15 07:50] LABS: Neutrophils # 27.6 K/mcL (1.6-8.9)
[2017-11-15 08:08] LABS: Platelet Estimate Normal (Normal)
[2017-11-15] MEDS ORDERED: Bisacodyl 10 MG RECTAL SUPPOSITORY RC ONE (08:28)
[2017-11-15] MEDS ORDERED: Methotrexate PFS 25 MG/ML VIAL IT SCH (08:30)
[2017-11-15 08:51] LABS: BUN/Creatinine Ratio 16 (6-26); Blood Urea Nitrogen 12 mg/dL (6-20); Calcium 9.3 mg/dL (8.6-10.3); Carbon Dioxide 20 mEq/L (23-29); Chloride 110 mEq/L (98-107); Glucose 145 mg/dL (70-105); Osmolality,Calculated 290 (280-300); Potassium 4.3 mEq/L (3.5-5.1); Sodium 139 mEq/L (136-145); eGFR For Non-African Americans > 60 (> 60)
--- NOTE | 2017-11-15 09:23 | Internal Med Progress Note ---
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 Schreiber Requiring admission to receive cycle #6 of dose adjusted REPO CH chemotherapy -Oncology to follow while inpatient Check a.m. labs Continue anti-emetics 11/15-afebrile overnight and hemodynamically stable. Developed leukocytosis with WBC of 30. Likely the result of IV steroids and chemotherapy. Oncology following. Continue to closely monitor. Qualifiers: Lymphoma site: extranodal excluding spleen and other solid organs Qualified Code(s): C83.79 - Burkitt lymphoma, extranodal and solid organ sites (2) Diabetes mellitus Current Visit: No Status: Chronic Assessment and plan: History of diabetes mellitus Before meals and at bedtime Accu-Cheks, add sliding scale insulin coverage 11/15- BG 133 today, cont current regimen. However, is taking iv steroids, monitor closely and adjust SSIC PRN Qualifiers: Diabetes mellitus type: type 2 Diabetes mellitus silk printer insulin use: without silk printer use Diabetes mellitus complication status: without complication Qualified Code(s): E11.9 - Type 2 diabetes mellitus without complications (3) Hypertension Current Visit: No Status: Chronic Assessment and plan: History of HTN, BP stable. Continue anti-HTN meds 11/15- stable, continue current med regimen Qualifiers: Hypertension type: essential hypertension Qualified Code(s): I10 - Essential (primary) hypertension (4) Obesity Current Visit: No Status: Chronic Assessment and plan: Discussed lifestyle modification Qualifiers: Obesity type: due to excess calories Obesity classification: adult class 2 (BMI 35 - 39.9) Serious obesity comorbidity presence: without serious comorbidity Body mass index: BMI 36.0-36.9 Qualified Code(s): E66.09 - Other obesity due to excess calories; Z68.36 - Body mass index (BMI) 36.0-36.9, adult (5) Leukocytosis Current Visit: Yes Status: Acute Assessment and plan: leukocytosis this morning no bandemia present likely 2/2 chemotherapy and iv steroids remains hemodynamically stable and afebrile monitor daily labs oncology following; thank you Qualifiers: Leukocytosis type: unspecified Qualified Code(s): D72.829 - Elevated white blood cell count, unspecified (6) Abdominal pain Current Visit: No Status: Acute Assessment and plan: Diffuse abdominal pain reported this morning recent h/o ruptured diverticulum reporting some constipation overnight dulcolax suppository x1 now continue with psyllium supplement and docusate BID serial abdominal exams; abdomen currently benign exam no ABX at this time consider imaging if abdominal pain persists or worsens Qualifiers: Abdominal location: unspecified location Qualified Code(s): R10.9 - Unspecified abdominal pain (7) DVT prophylaxis Current Visit: No Status: Acute Assessment and plan: Cont EPCD'S - Time Spent With Patient Total time spent is greater than 50% in coordination of care (as documented) at patient's floor/unit and/or counseling patient: 25 - 35 minutes - Subjective Interval history: no changes over night. Seen and examined at bedside today. No concerns for mild abdominal pain 2/10, diffuse. Reports having difficulty with bowel movements. Prior history of ruptured diverticulum. No other concerns at this time - Constitutional Vitals: Temp Pulse Resp BP Pulse Ox 97.6 F 81 18 123/80 96 11/15/17 07:01 11/15/17 07:01 11/15/17 07:01 11/15/17 07:01 11/15/17 07:01 - Head Head exam: Present: atraumatic, normocephalic - Eye Eye exam: Present: PERRL, conjuntiva pink, sclera anicteric Pupils: Present: PERRL - Neck Neck exam general surgery: Present: supple, trachea midline. Absent: lymphadenopathy - Respiratory Respiratory exam: Present: CTAB. Absent: accessory muscle use, rales, rhonchi, wheezes - Cardiovascular Cardiovascular exam: Present: RRR, +S1, +S2. Absent: diastolic murmur, gallop, rubs, systolic murmur - GI/Abdominal GI/Abdominal exam: Present: normal bowel sounds, soft, no peritoneal signs. Absent: distended, tenderness - Extremities Exam Extremities exam: Present: warm, radial pulses palpable and symmetrical. Absent : calf tenderness, cyanotic, pedal edema - Neurological Exam Neurological exam: Present: CN II-XII intact, oriented X3, no focal deficits. Absent: pronater drift, facial droop, speech deficit - Skin Skin exam: Present: dry, intact Internal Medicine: Result - Labs CBC & Chem 7: 11/15/17 07:11 11/15/17 07:11 Labs: Short CBC 11/15/17 Range/Units 07:11 WBC 30.0 H* D (4.3-11.1) K/mcL Hgb 10.9 L (12.9-16.9) g/dL Hct 32.0 L (37.5-50.1) % Plt Count 291 (140-400) K/mcL Neutrophils # 27.6 H (1.6-8.9) K/mcL BMP 11/15/17 07:11 Sodium 139 Potassium 4.3 Chloride 110 H Carbon Dioxide 20 L BUN 12 Creatinine 0.74 Glucose 145 H Calcium 9.3 Consult Discharge Plan - Plan Referrals: Lanny Stout, BURRING MACHINE OPERATOR [Primary Care Provider] -
--- NOTE | 2017-11-15 10:53 | Oncology Inp Consult Note ---
<Amanda Whitten L - Last Filed: 11/15/17 17:46> Date of Encounter: 11/15/17 Time of Encounter: 10:00 Assessment and Plan (1) Burkitts lymphoma Status: Chronic Assessment and plan: Mr. Robison presents for cycle #6 of dose adjusted R-EPOCH with IT MTX on day 2 ( Tuesday). No dose adjustment was made during this cycle. This is his final cycle. He tolerated his IT MTX well so far and without report of spinal headache. He does report mild, diffuse abdominal tenderness today with no sign of acute abdomen. He had a loose bowel movement this morning. WBC 30, increased as expected secondary to steroids although this count is slightly elevated in comparison to previous labs, he does tend to wax and wane. He is afebrile, no rigors/chills. During re-assessment in afternoon he reports that his abdominal pain has since resolved. Plan to obtain MRI abdomen tomorrow morning to further evaluate left renal mass concerning complex cyst vs RCC Lovenox may be held as he is ambulatory. PPI for GI prophylaxis. Counts stable. Will continue to monitor patient during hospital stay. Discharge planning- Next week is planned for follow up with Neulasta support and lab monitoring. PET scan to be completed about 3 months from this time. Please refer to Dr. Schreiber's attestation below for additional details. 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 His treatment intent is curative. He presents for cycle #6 of dose adjusted REPOCH chemotherapy without dose adjustment this cycle, with IT methotrexate on Tuesday. He is planned for Neluasta support November 21. Unfortunately, cycle #3 was complicated by a ruptured diverticulum which was managed conservatively and without surgical intervention. Clinically, this has completely resolved. His steroid dose has been reduced in subsequent cycles. Past Med Surg Social Fam HX - Past Medical History Medical history: GERD, hypertension Psychiatric history: anxiety - Past Surgical History Surgical History: non-contributory Additional surgical history: tumor removed from eye - Social History Smoking Status: Former smoker Smokeless Tobacco Status: No Alcohol use: none Drug use: none - Family History Mother Hx Family Endocrine Disorder: Yes (Diabetes) Medications and Allergies Loratadine [Claritin] 10 mg PO DAILY 08/15/17 [History] Promethazine [Phenergan] 25 mg Q6HR PRN 08/15/17 [History] Tramadol HCl [Ultram] 50 mg Q8HR PRN 08/15/17 [History] Docusate [Colace] 200 mg PO DAILY 10/03/17 [History] Lisinopril [Zestril] 10 mg PO DAILY #30 tablet 10/03/17 [Rx] Pantoprazole Sodium [Protonix] 40 mg PO DAILY #30 tablet. 10/03/17 [Rx] Psyllium Husk [Metamucil] 660 gm PO DAILY 10/10/17 [History] LORazepam [Ativan] 0.5 mg PO BID PRN 30 Days #60 tablet 10/17/17 [Rx] 3 Allergy/AdvReac Type Severity Reaction Status Date / Time No Known Allergies Allergy Verified 11/14/17 08:59 Constitutional: Present: fatigue, weakness. Absent: anorexia, chills, fever(s) , weight loss Eyes: Absent: change in vision Nose, mouth and throat: Present: dysphagia (chronic and intermittent, no changes ) Cardiovascular: Absent: chest pain Respiratory: Absent: cough, dyspnea Gastrointestinal: Absent: constipation, hematemesis, hematochezia, nausea, vomiting Additional comments: Mr Robison reports normal bowel movement on Tuesday, this morning he has experienced some abdominal cramps and loose stool x1 Additional comments: denies dysuria Additional comments: muscle weakness/fatigue post treatment, body aches about 1-2 weeks ago which have resolved Integumentary: Absent: rash, wounds Neurological: Absent: focal weakness, frequent falls Psychiatric: Present: anxiety Hematologic/Lymphatic: Present: as per HPI Oncology - Exam - Constitutional Vitals: Temp Pulse Resp BP Pulse Ox 98.3 F 61 14 125/78 99 07/24/18 10:17 11/15/17 10:17 11/15/17 10:17 11/15/17 10:17 11/15/17 10:17 General appearance: cooperative, no acute distress, no febrile - Head Head exam: Present: atraumatic - ENT ENT exam: Present: mucous membranes moist - Cardiovascular Cardiovascular exam: Present: RRR, +S1, +S2 - GI/Abdominal GI/Abdominal exam: Present: normal bowel sounds, soft. Absent: guarding, rebound Additional comments: mild diffuse tenderness to deep palpation, no sign of acute abdomen - Extremities Exam Extremities exam: Present: normal inspection. Absent: calf tenderness - Neurological Exam Neurological exam: Present: alert, oriented X3, no focal deficits, strengths equal and symetr throughout - Psychiatric Psychiatric exam: Present: normal affect, normal mood - Skin Skin exam: Present: dry, intact, normal color, warm Oncology - Results Labs: 3 11/15/17 11/15/17 11/15/17 07:11 07:11 07:03 WBC 30.0 H* D RBC 3.54 L Hgb 10.9 L Hct 32.0 L MCV 90.4 MCH 30.8 MCHC 34.1 RDW 14.9 H Plt Count 291 MPV 9.0 L Immature Gran % 2.1 Seg Neutrophils % 91.9 Lymphocytes % 2.6 Monocytes % 3.3 Eosinophils % 0.0 Basophils % 0.1 Neutrophils # 27.6 H Lymphocytes # 0.8 Monocytes # 1.0 Eosinophils # 0.0 Basophils # 0.0 Platelet Estimate Normal Sodium 139 Potassium 4.3 Chloride 110 H Carbon Dioxide 20 L BUN 12 Creatinine 0.74 Est GFR ( Amer) > 60 Est GFR (Non-Af Amer) > 60 BUN/Creatinine Ratio 16 Glucose 145 H POC Glucose 133 H Calculated Osmolality 290 Calcium 9.3 3 11/14/17 20:30 WBC RBC Hgb Hct MCV MCH MCHC RDW Plt Count MPV Immature Gran % Seg Neutrophils % Lymphocytes % Monocytes % Eosinophils % Basophils % Neutrophils # Lymphocytes # Monocytes # Eosinophils # Basophils # Platelet Estimate Sodium Potassium Chloride Carbon Dioxide BUN Creatinine Est GFR ( Amer) Est GFR (Non-Af Amer) BUN/Creatinine Ratio Glucose POC Glucose 346 H Calculated Osmolality Calcium Consult Discharge Plan - Plan Referrals: Lanny Stout, PICK PACK WORKER [Primary Care Provider] - <Pierre Schreiber S - Last Filed: 11/15/17 21:49> Date of Encounter: 11/15/17 - Data of Consult Requesting Physician: Karen Gallegos MD Primary Care Provider: Lanny Stout CNP - Consult Narrative History of present illness: Mr. Robison is a 42 year old male Oncology - Exam - Constitutional Vitals: Temp Pulse Resp BP Pulse Ox 98.5 F 107 16 113/63 96 11/15/17 19:58 11/15/17 19:58 11/15/17 19:58 11/15/17 19:58 11/15/17 19:58 Oncology - Results Labs: 3 11/15/17 11/15/17 11/15/17 16:11 11:07 07:11 WBC RBC Hgb Hct MCV MCH MCHC RDW Plt Count MPV Immature Gran % Seg Neutrophils % Lymphocytes % Monocytes % Eosinophils % Basophils % Neutrophils # Lymphocytes # Monocytes # Eosinophils # Basophils # Platelet Estimate Sodium 139 Potassium 4.3 Chloride 110 H Carbon Dioxide 20 L BUN 12 Creatinine 0.74 Est GFR ( Amer) > 60 Est GFR (Non-Af Amer) > 60 BUN/Creatinine Ratio 16 Glucose 145 H POC Glucose 141 H 228 H Calculated Osmolality 290 Calcium 9.3 3 11/15/17 11/15/17 11/14/17 07:11 07:03 20:30 WBC 30.0 H* D RBC 3.54 L Hgb 10.9 L Hct 32.0 L MCV 90.4 MCH 30.8 MCHC 34.1 RDW 14.9 H Plt Count 291 MPV 9.0 L Immature Gran % 2.1 Seg Neutrophils % 91.9 Lymphocytes % 2.6 Monocytes % 3.3 Eosinophils % 0.0 Basophils % 0.1 Neutrophils # 27.6 H Lymphocytes # 0.8 Monocytes # 1.0 Eosinophils # 0.0 Basophils # 0.0 Platelet Estimate Normal Sodium Potassium Chloride Carbon Dioxide BUN Creatinine Est GFR ( Amer) Est GFR (Non-Af Amer) BUN/Creatinine Ratio Glucose POC Glucose 133 H 346 H Calculated Osmolality Calcium - Attending Attestation I examined this patient and my medical decision-making was reviewed with Ms. Whitten. I agree with the documented findings, disposition and treatment plan as described except to the extent set forth below. He completed day 2 of his last cycle of therapy today. MTX completed as well. No change in plan for today. Encouraged rest. MRI abdomen ordered for tomorrow to evaluate renal mass.
[2017-11-15] MEDS: Insulin LISPRO 300 UNITS/3 ML VIAL SQ SCH ×4 (11:12→22:32)
[2017-11-15] MEDS ORDERED: DOXORUBICIN HCL IV SCH (14:00)
[2017-11-15] MEDS ORDERED: VINCRISTINE IV SCH (14:00)
[2017-11-15] MEDS ORDERED: [UNRECOGNIZED DRUG - OTHER] IV SCH (14:00)
[2017-11-15] MEDS ORDERED: ETOPOSIDE IV SCH (14:00)
[2017-11-15] MEDS ORDERED: Gadolinium Contrast Agent (WT Based) IV PRN (18:05)
[2017-11-15] MEDS ORDERED: Sennosides/Docusate Sodium TABLET PO PRN (22:07)
[2017-11-16 07:55] LABS: Basophils % 0.1 %; Hematocrit 31.2 % (37.5-50.1); Hemoglobin 10.5 g/dL (12.9-16.9); Lymphocytes # 1.3 K/mcL (0.6-4.6); Mean Corpuscular HGB Conc 33.7 g/dL (31.6-35.5); Mean Platelet Volume 9.1 fL (9.4-12.4); Monocytes # 1.3 K/mcL (0.0-1.3); Monocytes % 6.4 %; Neutrophils # 17.9 K/mcL (1.6-8.9); Platelet Count 265 K/mcL (140-400); Red Blood Count 3.39 M/mcL (4.19-5.50); Red Cell Distribution Width 15.5 % (11.5-14.5); Segmented Neutrophils % 85.5 %
[2017-11-16 07:56] LABS: BUN/Creatinine Ratio 22 (6-26); Blood Urea Nitrogen 17 mg/dL (6-20); Carbon Dioxide 21 mEq/L (23-29); Chloride 111 mEq/L (98-107); Glucose 112 mg/dL (70-105); Osmolality,Calculated 292 (280-300); Potassium 3.9 mEq/L (3.5-5.1); Sodium 140 mEq/L (136-145); eGFR For Non-African Americans > 60 (> 60)
[2017-11-16] MEDS: Nicotine 21 MG PATCH.TD24 TD SCH (08:35)
[2017-11-16] MEDS: Psyllium 1 PACKET POWD.PACK PO SCH (08:36)
[2017-11-16] MEDS: Loratadine 10 MG TABLET PO SCH (08:36)
[2017-11-16] MEDS: methylPREDNISolone 125 MG/2 ML VIAL IVP SCH (08:36)
--- NOTE | 2017-11-16 12:04 | Internal Med Progress Note ---
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 Schreiber Requiring admission to receive cycle #6 of dose adjusted REPO CH chemotherapy -Oncology to follow while inpatient Check a.m. labs Continue anti-emetics 11/15-afebrile overnight and hemodynamically stable. Developed leukocytosis with WBC of 30. Likely the result of IV steroids and chemotherapy. Oncology following. Continue to closely monitor. 11/16-no change in medical condition overnight. Remains stable. Remains afebrile. Leukocytosis improving WBC of 20 today. I believe that the leukocytosis is likely result of IV steroids and accommodation of chemotherapy. Oncology continue to follow. Plan for discharge on Tuesday or early next week pending completion of chemotherapy cycle #6. Qualifiers: Lymphoma site: extranodal excluding spleen and other solid organs Qualified Code(s): C83.79 - Burkitt lymphoma, extranodal and solid organ sites (2) Diabetes mellitus Current Visit: No Status: Chronic Assessment and plan: History of diabetes mellitus Before meals and at bedtime Accu-Cheks, add sliding scale insulin coverage 11/15- BG 133 today, cont current regimen. However, is taking iv steroids, monitor closely and adjust SSIC PRN 11/16-fingerstick blood glucose 156 this evening. Continue monitoring continue current regimen. Elevations in blood glucose likely secondary to IV steroid use. Qualifiers: Diabetes mellitus type: type 2 Diabetes mellitus senior living insulin use: without building construction superintendent use Diabetes mellitus complication status: without complication Qualified Code(s): E11.9 - Type 2 diabetes mellitus without complications (3) Hypertension Current Visit: No Status: Chronic Assessment and plan: History of HTN, BP stable. Continue anti-HTN meds 11/15- stable, continue current med regimen 11/16-BP remained stable, continue current medication regimen Qualifiers: Hypertension type: essential hypertension Qualified Code(s): I10 - Essential (primary) hypertension (4) Obesity Current Visit: No Status: Chronic Assessment and plan: Discussed lifestyle modification Qualifiers: Obesity type: due to excess calories Obesity classification: adult class 2 (BMI 35 - 39.9) Serious obesity comorbidity presence: without serious comorbidity Body mass index: BMI 36.0-36.9 Qualified Code(s): E66.09 - Other obesity due to excess calories; Z68.36 - Body mass index (BMI) 36.0-36.9, adult (5) Leukocytosis Current Visit: Yes Status: Acute Assessment and plan: leukocytosis this morning no bandemia present likely 2/2 chemotherapy and iv steroids remains hemodynamically stable and afebrile monitor daily labs oncology following; thank you 11/16 leukocytosis improving WBC 20.9 today. Clinically, patient appears to be improving. Continue chemotherapy as managed per oncology. See further planning above. Qualifiers: Leukocytosis type: unspecified Qualified Code(s): D72.829 - Elevated white blood cell count, unspecified (6) Abdominal pain Current Visit: No Status: Acute Assessment and plan: Diffuse abdominal pain reported this morning recent h/o ruptured diverticulum reporting some constipation overnight dulcolax suppository x1 now continue with psyllium supplement and docusate BID serial abdominal exams; abdomen currently benign exam no ABX at this time consider imaging if abdominal pain persists or worsens 11/16 abdominal pain much improved overnight. Mild left lower quadrant tenderness to palpation. However abdomen does not appear to be acute. Closely monitor due to recent history of ruptured diverticulum. Qualifiers: Abdominal location: unspecified location Qualified Code(s): R10.9 - Unspecified abdominal pain (7) DVT prophylaxis Current Visit: No Status: Acute Assessment and plan: Cont EPCD'S - Time Spent With Patient Total time spent is greater than 50% in coordination of care (as documented) at patient's floor/unit and/or counseling patient: 25 - 35 minutes - Subjective Interval history: Patient seen and examined at bedside today. Reporting that his abdominal pain has subsided and he feels great. He was able to have a bowel movement overnight. No acute changes overnight. No additional concerns at this time. - Constitutional Vitals: Temp Pulse Resp BP Pulse Ox 97.7 F 79 17 135/88 96 11/16/17 11:21 11/16/17 11:21 11/16/17 11:21 11/16/17 11:21 11/16/17 11:21 - Head Head exam: Present: atraumatic, normocephalic - Eye Eye exam: Present: PERRL, conjuntiva pink, sclera anicteric Pupils: Present: PERRL - Neck Neck exam general surgery: Present: supple, trachea midline. Absent: lymphadenopathy - Respiratory Respiratory exam: Present: CTAB. Absent: accessory muscle use, rales, rhonchi, wheezes - Cardiovascular Cardiovascular exam: Present: RRR, +S1, +S2. Absent: diastolic murmur, gallop, rubs, systolic murmur - GI/Abdominal GI/Abdominal exam: Present: normal bowel sounds, soft, tenderness (Mild LLQ tenderness without rebound.), no peritoneal signs. Absent: distended, firm, guarding, mass, rebound, rigid - Extremities Exam Extremities exam: Present: warm, radial pulses palpable and symmetrical. Absent : calf tenderness, cyanotic, pedal edema - Neurological Exam Neurological exam: Present: CN II-XII intact, oriented X3, no focal deficits. Absent: pronater drift, facial droop, speech deficit - Skin Skin exam: Present: dry, intact Internal Medicine: Result - Labs CBC & Chem 7: 11/16/17 07:15 11/16/17 07:15 Labs: Short CBC 11/16/17 Range/Units 07:15 WBC 20.9 H (4.3-11.1) K/mcL Hgb 10.5 L (12.9-16.9) g/dL Hct 31.2 L (37.5-50.1) % Plt Count 265 (140-400) K/mcL Neutrophils # 17.9 H (1.6-8.9) K/mcL BMP 11/16/17 07:15 Sodium 140 Potassium 3.9 Chloride 111 H Carbon Dioxide 21 L BUN 17 Creatinine 0.76 Glucose 112 H Calcium 9.0 - Impressions Impressions Chemotherapy Admin, Fluoroscopy Guided 11/15/17 08:00 IMPRESSION: Successful fluoroscopic-guided lumbar puncture. Successful intrathecal chemotherapy injection D/ / Javon Chavarria MD / Javon Chavarria MD Interpreting Provider: Javon Chavarria MD Consult Discharge Plan - Plan Referrals: Lanny Stout, ALTERATIONS MANAGER [Primary Care Provider] -
--- NOTE | 2017-11-16 13:13 | Oncology Inp Progress Note ---
<Amanda Whitten L - Last Filed: 11/16/17 17:32> Date of Encounter: 11/16/17 Time of Encounter: 10:00 (1) Burkitts lymphoma Current Visit: Yes Status: Chronic Assessment and plan: Mr. Robison presents for cycle #6 of dose adjusted R-EPOCH with IT MTX on day 2 ( Tuesday). No dose adjustment was made during this cycle. This is his final cycle. He tolerated his IT MTX well. His leukocytosis is secondary to his steroids, his counts are stable he is afebrile, no rigors/chills. He had some mild, intermittent abdominal cramps yesterday with some diffuse abdominal tenderness, he had a BM last evening and is feelin better today with no abdominal pain. He is scheduled for MRI abdomen today to further evaluate left renal mass concerning complex cyst vs RCC Lovenox may be held as he is ambulatory. PPI for GI prophylaxis. Will continue to monitor patient during hospital stay. Discharge planning- Next week is planned for follow up with Neulasta support and lab monitoring. PET scan to be completed about 3 months from this time. Please refer to Dr. Schreiber's attestation below for additional details. Qualifiers: Lymphoma site: extranodal excluding spleen and other solid organs Qualified Code(s): C83.79 - Burkitt lymphoma, extranodal and solid organ sites Oncology: Subj Interval history: Mr. Robison is feeling well this morning. He had a normal bowel movement last evening. He denies pain, nausea, vomiting, paresthesias, diarrhea, skin rash, headache or visual changes. He is getting ready to ambulate up and down the halls. He has no complaints. - Constitutional Vitals: Vital Signs Temp Pulse Resp BP Pulse Ox 11/16/17 11:21 97.7 F 79 17 135/88 96 11/16/17 07:48 97.6 F 92 16 124/76 96 11/16/17 04:45 97.6 F 79 14 113/69 97 11/15/17 23:58 98.2 F 93 14 120/69 97 11/15/17 19:58 98.5 F 107 16 113/63 96 11/15/17 15:14 98.4 F 99 18 118/73 92 Intake and Output 11/15/17 11/16/17 11/16/17 23:59 07:59 15:59 Intake Total 452.65 / 452.65 0 / 0 720 / 720 Output Total 1200 / 1200 1 / 1 900 / 900 Balance -747.35 / -747.35 -1 / -1 -180 / -180 Intake: IV Fluids 212.65 / 212.65 Adriamycin 27 MG Etoposide 135 114.65 / 114.65 mg VinCRIStine 0.4 MG In 0.9 % Sodium Chloride [place] Bg 500 ML @ 24 mls/hr IV ONCE(ONC) [facility] Rx#:[id number] 0.9 % Sodium Chloride 500 ML @ 98 / 98 25 MLS/HR 25 mls/hr IVC .Q20H [facility] Rx#:[id number] Oral 240 / 240 0 / 0 720 / 720 Output: Urine 1200 / 1200 0 / 0 900 / 900 Stool / Other: Meal Dinner Breakfast Percent of Meal Consumed 100% 100% # Voids 1 Weight 111.8 kg Blood Glucose* 283 100 177 Patient Weight 11/16/17 23:59 Weight 111.8 kg General appearance: cooperative, no acute distress, no febrile - Head Head exam: Present: atraumatic - Respiratory Respiratory exam: Present: CTAB. Absent: respiratory distress - Cardiovascular Cardiovascular exam: Present: RRR, +S1, +S2 - GI/Abdominal GI/Abdominal exam: Present: normal bowel sounds, soft, tenderness. Absent: guarding, rebound Additional comments: mild diffuse tenderness to palpation which has improved since yesterday, no sign of acute abdomen - Extremities Exam Extremities exam: Present: normal inspection. Absent: calf tenderness - Neurological Exam Neurological exam: Present: alert, oriented X3, no focal deficits, strengths equal and symetr throughout - Skin Skin exam: Present: dry, intact, normal color, warm Oncology: Obj Data - Labs CBC & Chem 7: 11/16/17 07:15 11/16/17 07:15 - Impressions Impressions Chemotherapy Admin, Fluoroscopy Guided 11/15/17 08:00 IMPRESSION: Successful fluoroscopic-guided lumbar puncture. Successful intrathecal chemotherapy injection D/ / Javon Chavarria MD / Javon Chavarria MD Interpreting Provider: Javon Chavarria MD Consult Discharge Plan - Plan Referrals: Lanny Stout, TEST AUTOMATION ARCHITECT [Primary Care Provider] - <CandieAlexPierre S - Last Filed: 11/17/17 21:14> Date of Encounter: 11/16/17 - Constitutional Vitals: Vital Signs Temp Pulse Resp BP Pulse Ox 11/17/17 21:06 98.1 F 99 16 121/75 97 11/17/17 18:53 97.8 F 76 16 132/89 96 11/17/17 15:18 97.8 F 96 11/17/17 11:46 98.5 F 76 15 132/89 94 11/17/17 10:15 95 11/17/17 07:36 98.1 F 74 16 121/80 95 11/17/17 03:52 97.6 F 77 15 114/70 96 Intake and Output 11/17/17 11/17/17 11/18/17 08:59 16:59 00:59 Intake Total 480 / 480 1040 / 1040 Output Total 1550 / 1550 0 / 0 Balance -1070 / -1070 1040 / 1040 Intake: IV Fluids Adriamycin 27 MG Etoposide 135 520.65 / 520.65 mg VinCRIStine 0.4 MG In 0.9 % Sodium Chloride [place] Bg 500 ML @ 24 mls/hr IV ONCE(ONC) [facility] Rx#:[id number] Oral 480 / 480 1040 / 1040 0 / 0 Output: Urine 1550 / 1550 0 / 0 Other: Meal Pt family brought him [employer] for Lunch Percent of Meal Consumed 100% # Voids 1 Weight 110.9 kg Blood Glucose* 101 265 258 Patient Weight 11/18/17 00:59 Weight 110.9 kg Oncology: Obj Data - Labs CBC & Chem 7: 11/17/17 07:14 11/17/17 07:14 Labs: Laboratory Results - last 24 hr 11/16/17 11/17/17 11/17/17 20:09 07:14 07:14 WBC 9.8 D RBC 3.25 L Hgb 9.9 L Hct 29.7 L MCV 91.4 MCH 30.5 MCHC 33.3 RDW 15.5 H Plt Count 233 MPV 8.8 L Immature Gran % 0.8 Seg Neutrophils % 76.8 Lymphocytes % 15.3 Monocytes % 7.0 Eosinophils % 0.0 Basophils % 0.1 Neutrophils # 7.5 Lymphocytes # 1.5 Monocytes # 0.7 Eosinophils # 0.0 Basophils # 0.0 Sodium 141 Potassium 3.4 L Chloride 112 H Carbon Dioxide 22 L BUN 19 Creatinine 0.72 Est GFR ( Amer) > 60 Est GFR (Non-Af Amer) > 60 BUN/Creatinine Ratio 26 Glucose 127 H POC Glucose 177 H Calculated Osmolality 296 Calcium 8.6 11/17/17 11/17/17 11/17/17 07:32 12:18 16:48 WBC RBC Hgb Hct MCV MCH MCHC RDW Plt Count MPV Immature Gran % Seg Neutrophils % Lymphocytes % Monocytes % Eosinophils % Basophils % Neutrophils # Lymphocytes # Monocytes # Eosinophils # Basophils # Sodium Potassium Chloride Carbon Dioxide BUN Creatinine Est GFR ( Amer) Est GFR (Non-Af Amer) BUN/Creatinine Ratio Glucose POC Glucose 101 H 103 H 265 H Calculated Osmolality Calcium - Attending Attestation I examined this patient and my medical decision-making was reviewed with the Advanced Practice Nurse. I agree with the documented findings, disposition and treatment plan as described except to the extent set forth below. He is doing well. Completing day 3 of therapy. Reviewed MRI imaging which is consistent with a left upper pole renal cell carcinoma as well as a separate concerning cyst. Lesion extends towards to calyx. Discussed surgical options; hopefully partial nephrectomy although location is concerning. Nephrectomy may be required. Would not advise biopsy but will defer to Urology who will be consulted tomorrow morning.
[2017-11-16] MEDS: Insulin LISPRO 300 UNITS/3 ML VIAL SQ SCH ×4 (14:30→20:19)
[2017-11-16] MEDS ORDERED: DOXORUBICIN HCL IV SCH (16:00)
[2017-11-16] MEDS ORDERED: [UNRECOGNIZED DRUG - OTHER] IV SCH (16:00)
[2017-11-16] MEDS ORDERED: ETOPOSIDE IV SCH (16:00)
[2017-11-16] MEDS ORDERED: VINCRISTINE IV SCH (16:00)
[2017-11-17 07:34] LABS: Basophils % 0.1 %; Hematocrit 29.7 % (37.5-50.1); Hemoglobin 9.9 g/dL (12.9-16.9); Immature Granulocytes % 0.8 % (0-4); Lymphocytes # 1.5 K/mcL (0.6-4.6); Lymphocytes % 15.3 %; Mean Corpuscular HGB Conc 33.3 g/dL (31.6-35.5); Mean Corpuscular Hemoglobin 30.5 pg (28.0-33.3); Mean Corpuscular Volume 91.4 fL (83.0-100.0); Mean Platelet Volume 8.8 fL (9.4-12.4); Monocytes # 0.7 K/mcL (0.0-1.3); Platelet Count 233 K/mcL (140-400); Red Blood Count 3.25 M/mcL (4.19-5.50); Red Cell Distribution Width 15.5 % (11.5-14.5); Segmented Neutrophils % 76.8 %
[2017-11-17 07:44] LABS: Neutrophils # 7.5 K/mcL (1.6-8.9)
[2017-11-17 07:53] LABS: BUN/Creatinine Ratio 26 (6-26); Blood Urea Nitrogen 19 mg/dL (6-20); Calcium 8.6 mg/dL (8.6-10.3); Carbon Dioxide 22 mEq/L (23-29); Chloride 112 mEq/L (98-107); Glucose 127 mg/dL (70-105); Osmolality,Calculated 296 (280-300); Potassium 3.4 mEq/L (3.5-5.1); Sodium 141 mEq/L (136-145); eGFR For Non-African Americans > 60 (> 60)
[2017-11-17] MEDS: 0.9 % Sodium Chloride 500 ML IVC SCH (09:45)
[2017-11-17] MEDS: Insulin LISPRO 300 UNITS/3 ML VIAL SQ SCH ×4 (09:47→21:06)
[2017-11-17] MEDS: Famotidine 20 MG/2 ML VIAL IV PRN (10:05)
[2017-11-17] MEDS: methylPREDNISolone 125 MG/2 ML VIAL IVP SCH (10:05)
[2017-11-17] MEDS: Nicotine 21 MG PATCH.TD24 TD SCH (10:06)
[2017-11-17] MEDS: Psyllium 1 PACKET POWD.PACK PO SCH (10:06)
[2017-11-17] MEDS: Loratadine 10 MG TABLET PO SCH (10:06)
--- NOTE | 2017-11-17 12:39 | Oncology Inp Progress Note ---
<Amanda Whitten L - Last Filed: 11/17/17 18:08> Date of Encounter: 11/17/17 Time of Encounter: 10:00 (1) Burkitts lymphoma Current Visit: Yes Status: Chronic Assessment and plan: Mr. Robison presents for cycle #6 of dose adjusted R-EPOCH with IT MTX on day 2 ( Tuesday). No dose adjustment was made during this cycle. This is his final cycle. He tolerated his IT MTX well. His leukocytosis is secondary to his steroids, his counts are stable he is afebrile, no rigors/chills. He continues to have regular bowel movements with no abdominal pain at this time , no sign of acute abdomen. Lovenox may be held as he is ambulatory. PPI for GI prophylaxis. Will continue to monitor patient during hospital stay. Discharge planning- Next week is planned for follow up with Neulasta support and lab monitoring. PET scan to be completed about 3 months from this time. Please refer to Dr. Schreiber's attestation below for additional details. Qualifiers: Lymphoma site: extranodal excluding spleen and other solid organs Qualified Code(s): C83.79 - Burkitt lymphoma, extranodal and solid organ sites (2) Renal mass Current Visit: Yes Status: Acute Assessment and plan: MRI abdomen reveals 5.5 cm x 5.0 cm x 5.6 cm exophytic mass in the upper pole of the left kidney with features consistent with renal cell carcinoma, No findings of metastatic disease in the abdomen along with a 2.9 cm x 2.3 cm Bosniak category 2F cyst slightly more inferiorly in the upper pole of the left kidney. Recommend follow-up with renal protocol MRI. Recommend Urology consultation for further evaluation and discussion on resection Oncology: Subj Interval history: Mr. Robison is feeling well today overall, he denies abdominal pain, nausea, vomiting, diarrhea, rash, numbness or tingling. He had a normal bowel movement today. He is doing relatively well after our discussion last evening regarding his MRI results and in good spirits, considering. - Constitutional Vitals: Vital Signs Temp Pulse Resp BP Pulse Ox 11/17/17 11:46 98.5 F 76 15 132/89 94 11/17/17 10:15 95 11/17/17 07:36 98.1 F 74 16 121/80 95 11/17/17 03:52 97.6 F 77 15 114/70 96 11/16/17 20:12 97.9 F 89 16 121/71 95 11/16/17 15:29 98.3 F 98 16 127/87 95 Intake and Output 11/16/17 11/17/17 11/17/17 23:59 07:59 15:59 Intake Total 480 / 480 680 / 680 Output Total 1550 / 1550 Balance -1070 / -1070 680 / 680 Intake: Oral 480 / 480 680 / 680 Output: Urine 1550 / 1550 Other: Meal Breakfast Percent of Meal Consumed 100% # Voids 1 Weight 110.9 kg Blood Glucose* 177 101 103 Patient Weight 11/17/17 23:59 Weight 110.9 kg General appearance: cooperative, no acute distress, no febrile - Head Head exam: Present: atraumatic - ENT ENT exam: Present: mucous membranes moist - Respiratory Respiratory exam: Present: CTAB. Absent: respiratory distress - Cardiovascular Cardiovascular exam: Present: RRR, +S1, +S2 - GI/Abdominal GI/Abdominal exam: Present: normal bowel sounds, soft. Absent: guarding, rebound, tenderness - Extremities Exam Extremities exam: Absent: calf tenderness - Neurological Exam Neurological exam: Present: alert, oriented X3, no focal deficits, strengths equal and symetr throughout - Psychiatric Psychiatric exam: Present: normal affect, normal mood - Skin Skin exam: Present: dry, intact, normal color, warm Oncology: Obj Data - Labs CBC & Chem 7: 11/17/17 07:14 11/17/17 07:14 Labs: Laboratory Results - last 24 hr 11/16/17 11/17/17 11/17/17 16:28 07:14 07:14 WBC 9.8 D RBC 3.25 L Hgb 9.9 L Hct 29.7 L MCV 91.4 MCH 30.5 MCHC 33.3 RDW 15.5 H Plt Count 233 MPV 8.8 L Immature Gran % 0.8 Seg Neutrophils % 76.8 Lymphocytes % 15.3 Monocytes % 7.0 Eosinophils % 0.0 Basophils % 0.1 Neutrophils # 7.5 Lymphocytes # 1.5 Monocytes # 0.7 Eosinophils # 0.0 Basophils # 0.0 Sodium 141 Potassium 3.4 L Chloride 112 H Carbon Dioxide 22 L BUN 19 Creatinine 0.72 Est GFR ( Amer) > 60 Est GFR (Non-Af Amer) > 60 BUN/Creatinine Ratio 26 Glucose 127 H POC Glucose 156 H Calculated Osmolality 296 Calcium 8.6 - Impressions Impressions Abdomen MRI 11/16/17 09:00 IMPRESSION: 1. 5.5 cm x 5.0 cm x 5.6 cm exophytic mass in the upper pole of the left kidney with features consistent with renal cell carcinoma, potentially papillary or chromophobe subtypes by imaging features. Recommend urology evaluation. 2. No findings of metastatic disease in the abdomen. 3. 2.9 cm x 2.3 cm Bosniak category 2F cyst slightly more inferiorly in the upper pole of the left kidney. Recommend follow-up with renal protocol MRI or CT in 6 months per the ACR recommendations for incidental renal masses. 4. A few incidental findings as above. D/ / Kevin Watson MD / Kevin Watson MD Interpreting Provider: Kevin Watson MD Consult Discharge Plan - Plan Referrals: Lanny Stout, BRADDER [Primary Care Provider] - <Pierre Schreiber S - Last Filed: 11/17/17 21:21> Date of Encounter: 11/17/17 - Constitutional Vitals: Vital Signs Temp Pulse Resp BP Pulse Ox 11/17/17 21:06 98.1 F 99 16 121/75 97 11/17/17 18:53 97.8 F 76 16 132/89 96 11/17/17 15:18 97.8 F 96 11/17/17 11:46 98.5 F 76 15 132/89 94 11/17/17 10:15 95 11/17/17 07:36 98.1 F 74 16 121/80 95 11/17/17 03:52 97.6 F 77 15 114/70 96 Intake and Output 11/17/17 11/17/17 11/18/17 08:59 16:59 00:59 Intake Total 480 / 480 1040 / 1040 Output Total 1550 / 1550 0 / 0 Balance -1070 / -1070 1040 / 1040 Intake: IV Fluids 2000.65 / 2000.65 Adriamycin 27 MG Etoposide 135 520.65 / 520.65 mg VinCRIStine 0.4 MG In 0.9 % Sodium Chloride [place] Bg 500 ML @ 24 mls/hr IV ONCE(ONC) [facility] Rx#:[id number] Oral 480 / 480 1040 / 1040 0 / 0 Output: Urine 1550 / 1550 0 / 0 Other: Meal Pt family brought him [employer] for Lunch Percent of Meal Consumed 100% # Voids 1 Weight 110.9 kg Blood Glucose* 101 265 258 Patient Weight 11/18/17 00:59 Weight 110.9 kg Oncology: Obj Data - Labs CBC & Chem 7: 11/17/17 07:14 11/17/17 07:14 Labs: Laboratory Results - last 24 hr 11/16/17 11/17/17 11/17/17 20:09 07:14 07:14 WBC 9.8 D RBC 3.25 L Hgb 9.9 L Hct 29.7 L MCV 91.4 MCH 30.5 MCHC 33.3 RDW 15.5 H Plt Count 233 MPV 8.8 L Immature Gran % 0.8 Seg Neutrophils % 76.8 Lymphocytes % 15.3 Monocytes % 7.0 Eosinophils % 0.0 Basophils % 0.1 Neutrophils # 7.5 Lymphocytes # 1.5 Monocytes # 0.7 Eosinophils # 0.0 Basophils # 0.0 Sodium 141 Potassium 3.4 L Chloride 112 H Carbon Dioxide 22 L BUN 19 Creatinine 0.72 Est GFR ( Amer) > 60 Est GFR (Non-Af Amer) > 60 BUN/Creatinine Ratio 26 Glucose 127 H POC Glucose 177 H Calculated Osmolality 296 Calcium 8.6 11/17/17 11/17/17 11/17/17 07:32 12:18 16:48 WBC RBC Hgb Hct MCV MCH MCHC RDW Plt Count MPV Immature Gran % Seg Neutrophils % Lymphocytes % Monocytes % Eosinophils % Basophils % Neutrophils # Lymphocytes # Monocytes # Eosinophils # Basophils # Sodium Potassium Chloride Carbon Dioxide BUN Creatinine Est GFR ( Amer) Est GFR (Non-Af Amer) BUN/Creatinine Ratio Glucose POC Glucose 101 H 103 H 265 H Calculated Osmolality Calcium - Attending Attestation I examined this patient and my medical decision-making was reviewed with the Advanced Practice Nurse. I agree with the documented findings, disposition and treatment plan as described except to the extent set forth below. He is doing well. Tolerating therapy very. No headache from MTX. Will complete therapy tomorrow. Discussed MRI findings again. Urology has evaluated. Will plan for left complete nephrectomy in early December. Patient was understandably upset but plan clarified. Home tomorrow.
--- NOTE | 2017-11-17 14:07 | Urology - Consult Note ---
<Karuna Bustamante N - Last Filed: 11/17/17 14:01> Date of Encounter: 11/17/17 Time of Encounter: 14:02 - Assessment and Plan (1) Renal mass Current Visit: Yes Status: Acute Assessment and plan: Patient is a 42-year-old male who presents with a complex left renal mass. The mass is concerning for renal cell carcinoma. 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 The patient will likely need a nephrectomy. I briefly discussed this with the patient and his and explained that Dr. Malone will be in to discuss this at length. Urology CN:HPI Consult date: 11/17/17 Reason for consult Urology: Other (Left Complex Renal Mass) History of present illness: Patient is a 42-year-old male who presents with a left complex renal mass. The patient is currently undergoing treatment for Burkitt's lymphoma, and he underwent a CT scan of the abdomen and pelvis from a recent flare of diverticulitis which incidentally revealed a renal mass. Despite the patient's chemotherapy treatment regimen, he is feeling very well. The patient denies hematuria, flank pain, changes in urination or bowel habits, or weight loss. The patient does have a significant smoking history. The patient states he uses smokeless tobacco and smoked cigarettes since the age of 87 years old. The patient has not seen nor is he established with a urologist. The patient denies any known history of urologic problems, such as renal stones or voiding difficulties. Past Med Surg Social Fam HX - Past Medical History Medical history: GERD, hypertension Psychiatric history: anxiety - Past Surgical History Surgical History: non-contributory Additional surgical history: tumor removed from eye - Social History Smoking Status: Former smoker Smokeless Tobacco Status: No Alcohol use: none Drug use: none - Family History Mother Hx Family Endocrine Disorder: Yes (Diabetes) Medications and Allergies Loratadine [Claritin] 10 mg PO DAILY 08/15/17 [History] Promethazine [Phenergan] 25 mg Q6HR PRN 08/15/17 [History] Tramadol HCl [Ultram] 50 mg Q8HR PRN 08/15/17 [History] Docusate [Colace] 200 mg PO DAILY 10/03/17 [History] Lisinopril [Zestril] 10 mg PO DAILY #30 tablet 10/03/17 [Rx] Pantoprazole Sodium [Protonix] 40 mg PO DAILY #30 tablet. 10/03/17 [Rx] Psyllium Husk [Metamucil] 660 gm PO DAILY 10/10/17 [History] LORazepam [Ativan] 0.5 mg PO BID PRN 30 Days #60 tablet 10/17/17 [Rx] 3 Allergy/AdvReac Type Severity Reaction Status Date / Time No Known Allergies Allergy Verified 11/14/17 08:59 Review of Systems - Constitutional as per HPI, no chills, no fatigue, no fever(s), no weakness - EENT Nose, mouth and throat: other (dysphagia ), no headache(s), no throat swelling - Cardiovascular no chest pain, no dyspnea - Respiratory no cough, no dyspnea - Gastrointestinal no abdominal pain, no change in bowel habits, no nausea, no vomiting - Genitourinary no change in urinary stream, no difficulty urinating, no dysuria, no flank pain , no hematuria, no urinary frequency, no urinary hesitancy, no urinary incontinence, no urinary urgency - Musculoskeletal no back pain, no muscle weakness - Integumentary no erythema, no rash, no swelling - Neurological no confusion, no sensory deficit, no syncope Exam Initial Vital Signs Temp Pulse Resp BP Pulse Ox 97.9 F 91 18 121/73 96 11/14/17 11:10 11/14/17 11:10 11/14/17 11:10 11/14/17 11:10 11/14/17 11:10 - General physical appearance Present: well developed, well nourished, no distress, no pain - Eyes Present: PERRL, normal ocular movement - ENT Present: normal nares. Absent: nasal discharge - Neck Present: no masses, trachea midline - Respiratory Present: normal respiratory effort - Cardiovascular Cardiovascular exam IM: RRR - Abdomen Abdomen: Present: soft, non tender. Absent: distended - Genitourinary other (No CVAT bilaterally ) - Integumentary Present: no rash, no growths, no abnormal pigmentation - Neurologic Present: normal coordination. Absent: disoriented, confused - Musculoskeletal Present: other (no pedal edema ) Urology Results - Labs 11/17/17 07:14 11/17/17 07:14 Abnormal lab results RBC 3.25 M/mcL (4.19-5.50) L 11/17/17 07:14 Hgb 9.9 g/dL (12.9-16.9) L 11/17/17 07:14 Hct 29.7 % (37.5-50.1) L 11/17/17 07:14 RDW 15.5 % (11.5-14.5) H 11/17/17 07:14 MPV 8.8 fL (9.4-12.4) L 11/17/17 07:14 Potassium 3.4 mEq/L (3.5-5.1) L 11/17/17 07:14 Chloride 112 mEq/L (98-107) H 11/17/17 07:14 Carbon Dioxide 22 mEq/L (23-29) L 11/17/17 07:14 Glucose 127 mg/dL (70-105) H 11/17/17 07:14 POC Glucose 156 mg/dL (70-99) H 11/16/17 16:28 Diabetes panel 11/17/17 Range/Units 07:14 Sodium 141 (136-145) mEq/L Potassium 3.4 L (3.5-5.1) mEq/L Chloride 112 H (98-107) mEq/L Carbon Dioxide 22 L (23-29) mEq/L BUN 19 (6-20) mg/dL Creatinine 0.72 (0.70-1.30) mg/dL Glucose 127 H (70-105) mg/dL Calcium 8.6 (8.6-10.3) mg/dL Calcium panel 11/17/17 Range/Units 07:14 Calcium 8.6 (8.6-10.3) mg/dL Pituitary panel 11/17/17 Range/Units 07:14 Sodium 141 (136-145) mEq/L Potassium 3.4 L (3.5-5.1) mEq/L Chloride 112 H (98-107) mEq/L Carbon Dioxide 22 L (23-29) mEq/L BUN 19 (6-20) mg/dL Creatinine 0.72 (0.70-1.30) mg/dL Glucose 127 H (70-105) mg/dL Calcium 8.6 (8.6-10.3) mg/dL Adrenal panel 11/17/17 Range/Units 07:14 Sodium 141 (136-145) mEq/L Potassium 3.4 L (3.5-5.1) mEq/L Chloride 112 H (98-107) mEq/L Carbon Dioxide 22 L (23-29) mEq/L BUN 19 (6-20) mg/dL Creatinine 0.72 (0.70-1.30) mg/dL Glucose 127 H (70-105) mg/dL Calcium 8.6 (8.6-10.3) mg/dL All other labs normal. - Imaging CT scan - abdomen: report reviewed CT scan - pelvis: report reviewed Consult Discharge Plan - Plan Referrals: Lanny Stout, CYBER INTELLIGENCE ANALYST [Primary Care Provider] - <León Malone - Last Filed: 11/17/17 17:59> Date of Encounter: 11/17/17 - Assessment and Plan (1) Renal mass Current Visit: Yes Status: Acute Assessment and plan: I discussed imaging/renal mass with patient for 20 min. likely RCC based on appearance. discussed biopsy but elcting at this point to proceed with surgery without biopsy. I feel this is reasonable based on MRI imaging and PET scan findings (neg). partial would be very difficult with size of primary tumor and depth into central region of kidney along with adjacent bosniak 2 lesion that should alos be removed. electing for a hand assist lap radical nephrectomy. will plan in dec. pt ready to proceed. discussed surgery including risks of major bleeding, internal organ injury renal failure/insufficiency, need to convert to open, transfusion, major morbidity or . Exam Initial Vital Signs Temp Pulse Resp BP Pulse Ox 97.9 F 91 18 121/73 96 11/14/17 11:10 11/14/17 11:10 11/14/17 11:10 11/14/17 11:10 11/14/17 11:10 Urology Results - Labs 11/17/17 07:14 11/17/17 07:14 Abnormal lab results RBC 3.25 M/mcL (4.19-5.50) L 11/17/17 07:14 Hgb 9.9 g/dL (12.9-16.9) L 11/17/17 07:14 Hct 29.7 % (37.5-50.1) L 11/17/17 07:14 RDW 15.5 % (11.5-14.5) H 11/17/17 07:14 MPV 8.8 fL (9.4-12.4) L 11/17/17 07:14 Potassium 3.4 mEq/L (3.5-5.1) L 11/17/17 07:14 Chloride 112 mEq/L (98-107) H 11/17/17 07:14 Carbon Dioxide 22 mEq/L (23-29) L 11/17/17 07:14 Glucose 127 mg/dL (70-105) H 11/17/17 07:14 POC Glucose 265 mg/dL (70-99) H 11/17/17 16:48 Diabetes panel 11/17/17 Range/Units 07:14 Sodium 141 (136-145) mEq/L Potassium 3.4 L (3.5-5.1) mEq/L Chloride 112 H (98-107) mEq/L Carbon Dioxide 22 L (23-29) mEq/L BUN 19 (6-20) mg/dL Creatinine 0.72 (0.70-1.30) mg/dL Glucose 127 H (70-105) mg/dL Calcium 8.6 (8.6-10.3) mg/dL Calcium panel 11/17/17 Range/Units 07:14 Calcium 8.6 (8.6-10.3) mg/dL Pituitary panel 11/17/17 Range/Units 07:14 Sodium 141 (136-145) mEq/L Potassium 3.4 L (3.5-5.1) mEq/L Chloride 112 H (98-107) mEq/L Carbon Dioxide 22 L (23-29) mEq/L BUN 19 (6-20) mg/dL Creatinine 0.72 (0.70-1.30) mg/dL Glucose 127 H (70-105) mg/dL Calcium 8.6 (8.6-10.3) mg/dL Adrenal panel 11/17/17 Range/Units 07:14 Sodium 141 (136-145) mEq/L Potassium 3.4 L (3.5-5.1) mEq/L Chloride 112 H (98-107) mEq/L Carbon Dioxide 22 L (23-29) mEq/L BUN 19 (6-20) mg/dL Creatinine 0.72 (0.70-1.30) mg/dL Glucose 127 H (70-105) mg/dL Calcium 8.6 (8.6-10.3) mg/dL All other labs normal.
--- NOTE | 2017-11-17 14:09 | Internal Med Progress Note ---
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 Schreiber Requiring admission to receive cycle #6 of dose adjusted REPO CH chemotherapy -Oncology to follow while inpatient Check a.m. labs Continue anti-emetics 11/15-afebrile overnight and hemodynamically stable. Developed leukocytosis with WBC of 30. Likely the result of IV steroids and chemotherapy. Oncology following. Continue to closely monitor. 11/16-no change in medical condition overnight. Remains stable. Remains afebrile. Leukocytosis improving WBC of 20 today. I believe that the leukocytosis is likely result of IV steroids and accommodation of chemotherapy. Oncology continue to follow. Plan for discharge on Tuesday or early next week pending completion of chemotherapy cycle #6. 11/17-No change in condition overnight. Clinically, continues to remain stable. Leukocytosis resolved, WBC 9.8 today. Oncology continue to follow. Finishing cycle #6 of chemotherapy. Qualifiers: Lymphoma site: extranodal excluding spleen and other solid organs Qualified Code(s): C83.79 - Burkitt lymphoma, extranodal and solid organ sites (2) Diabetes mellitus Current Visit: No Status: Chronic Assessment and plan: History of diabetes mellitus Before meals and at bedtime Accu-Cheks, add sliding scale insulin coverage 11/15- BG 133 today, cont current regimen. However, is taking iv steroids, monitor closely and adjust SSIC PRN 11/16-fingerstick blood glucose 156 this evening. Continue monitoring continue current regimen. Elevations in blood glucose likely secondary to IV steroid use. 11/17-blood glucose stable, continue current insulin regimen Qualifiers: Diabetes mellitus type: type 2 Diabetes mellitus long-term insulin use: without long-term use Diabetes mellitus complication status: without complication Qualified Code(s): E11.9 - Type 2 diabetes mellitus without complications (3) Hypertension Current Visit: No Status: Chronic Assessment and plan: History of HTN, BP stable. Continue anti-HTN meds 11/15- stable, continue current med regimen 11/16-BP remained stable, continue current medication regimen 11/17-BP continues to be stable, 132/89 continue current regimen Qualifiers: Hypertension type: essential hypertension Qualified Code(s): I10 - Essential (primary) hypertension (4) Obesity Current Visit: No Status: Chronic Assessment and plan: Discussed lifestyle modification Qualifiers: Obesity type: due to excess calories Obesity classification: adult class 2 (BMI 35 - 39.9) Serious obesity comorbidity presence: without serious comorbidity Body mass index: BMI 36.0-36.9 Qualified Code(s): E66.09 - Other obesity due to excess calories; Z68.36 - Body mass index (BMI) 36.0-36.9, adult (5) Leukocytosis Current Visit: Yes Status: Acute Assessment and plan: leukocytosis this morning no bandemia present likely 2/2 chemotherapy and iv steroids remains hemodynamically stable and afebrile monitor daily labs oncology following; thank you 11/16 leukocytosis improving WBC 20.9 today. Clinically, patient appears to be improving. Continue chemotherapy as managed per oncology. See further planning above. 11/17-WBC 9.8, continuing to improve daily Qualifiers: Leukocytosis type: unspecified Qualified Code(s): D72.829 - Elevated white blood cell count, unspecified (6) Abdominal pain Current Visit: No Status: Acute Assessment and plan: Diffuse abdominal pain reported this morning recent h/o ruptured diverticulum reporting some constipation overnight dulcolax suppository x1 now continue with psyllium supplement and docusate BID serial abdominal exams; abdomen currently benign exam no ABX at this time consider imaging if abdominal pain persists or worsens 11/16 abdominal pain much improved overnight. Mild left lower quadrant tenderness to palpation. However abdomen does not appear to be acute. Closely monitor due to recent history of ruptured diverticulum. 11/17-abdominal pain is intermittent but has resolved for now. Qualifiers: Abdominal location: unspecified location Qualified Code(s): R10.9 - Unspecified abdominal pain (7) Renal cell carcinoma Current Visit: Yes Status: Suspected Assessment and plan: 1. 5.5 cm x 5.0 cm x 5.6 cm exophytic mass in the upper pole of the left kidney with features consistent with renal cell carcinoma, potentially papillary or chromophobe subtypes by imaging features. Recommend urology evaluation. 2. No findings of metastatic disease in the abdomen. 3. 2.9 cm x 2.3 cm Bosniak category 2F cyst slightly more inferiorly in the upper pole of the left kidney. Recommend follow-up with renal protocol MRI or CT in 6 months per the ACR recommendations for incidental renal masses. 4. A few incidental findings as above. Suspected renal cell carcinoma-urology and oncology following. Plan is for total nephrectomy. Qualifiers: Laterality: left Qualified Code(s): C64.2 - Malignant neoplasm of left kidney, except renal pelvis (8) DVT prophylaxis Current Visit: No Status: Acute Assessment and plan: Cont EPCD'S, increase activity - Time Spent With Patient Total time spent is greater than 50% in coordination of care (as documented) at patient's floor/unit and/or counseling patient: 25 - 35 minutes - Subjective Interval history: Patient seen and examined at bedside today. Denies any abdominal pain. Denies any urinary symptoms. No additional concerns at this time. - Constitutional Vitals: Temp Pulse Resp BP Pulse Ox 98.5 F 76 15 132/89 94 11/17/17 11:46 11/17/17 11:46 11/17/17 11:46 11/17/17 11:46 11/17/17 11:46 - Head Head exam: Present: atraumatic, normocephalic - Eye Eye exam: Present: PERRL, conjuntiva pink, sclera anicteric Pupils: Present: PERRL - Neck Neck exam general surgery: Present: supple, trachea midline. Absent: lymphadenopathy - Respiratory Respiratory exam: Present: CTAB. Absent: accessory muscle use, rales, rhonchi, wheezes - Cardiovascular Cardiovascular exam: Present: RRR, +S1, +S2. Absent: diastolic murmur, gallop, rubs, systolic murmur - GI/Abdominal GI/Abdominal exam: Present: normal bowel sounds, soft, no peritoneal signs. Absent: distended, tenderness - Extremities Exam Extremities exam: Present: warm, radial pulses palpable and symmetrical. Absent : calf tenderness, cyanotic, pedal edema - Neurological Exam Neurological exam: Present: CN II-XII intact, oriented X3, no focal deficits. Absent: pronater drift, facial droop, speech deficit - Skin Skin exam: Present: dry, intact Internal Medicine: Result - Labs CBC & Chem 7: 11/17/17 07:14 11/17/17 07:14 Labs: Short CBC 11/17/17 Range/Units 07:14 WBC 9.8 D (4.3-11.1) K/mcL Hgb 9.9 L (12.9-16.9) g/dL Hct 29.7 L (37.5-50.1) % Plt Count 233 (140-400) K/mcL Neutrophils # 7.5 (1.6-8.9) K/mcL BMP 11/17/17 07:14 Sodium 141 Potassium 3.4 L Chloride 112 H Carbon Dioxide 22 L BUN 19 Creatinine 0.72 Glucose 127 H Calcium 8.6 - Impressions Impressions Abdomen MRI 11/16/17 09:00 IMPRESSION: 1. 5.5 cm x 5.0 cm x 5.6 cm exophytic mass in the upper pole of the left kidney with features consistent with renal cell carcinoma, potentially papillary or chromophobe subtypes by imaging features. Recommend urology evaluation. 2. No findings of metastatic disease in the abdomen. 3. 2.9 cm x 2.3 cm Bosniak category 2F cyst slightly more inferiorly in the upper pole of the left kidney. Recommend follow-up with renal protocol MRI or CT in 6 months per the ACR recommendations for incidental renal masses. 4. A few incidental findings as above. D/ / Kevin Watson MD / Kevin Watson MD Interpreting Provider: Kevin Watson MD Consult Discharge Plan - Plan Referrals: Lanny Stout, INSTITUTIONAL RESEARCH COORDINATOR [Primary Care Provider] -
[2017-11-17] MEDS ORDERED: [UNRECOGNIZED DRUG - OTHER] IV SCH (16:00)
[2017-11-17] MEDS ORDERED: VINCRISTINE IV SCH (16:00)
[2017-11-17] MEDS ORDERED: ETOPOSIDE IV SCH (16:00)
[2017-11-17] MEDS ORDERED: DOXORUBICIN HCL IV SCH (16:00)
[2017-11-18 06:13] LABS: Basophils % 0.1 %; Eosinophils % 0.1 %; Hematocrit 28.7 % (37.5-50.1); Hemoglobin 9.7 g/dL (12.9-16.9); Immature Granulocytes % 0.9 % (0-4); Lymphocytes # 1.2 K/mcL (0.6-4.6); Lymphocytes % 16.3 %; Mean Corpuscular HGB Conc 33.8 g/dL (31.6-35.5); Mean Corpuscular Hemoglobin 30.8 pg (28.0-33.3); Mean Corpuscular Volume 91.1 fL (83.0-100.0); Mean Platelet Volume 8.4 fL (9.4-12.4); Monocytes # 0.2 K/mcL (0.0-1.3); Monocytes % 2.6 %; Platelet Count 218 K/mcL (140-400); Red Blood Count 3.15 M/mcL (4.19-5.50); Red Cell Distribution Width 14.9 % (11.5-14.5)
[2017-11-18 06:31] LABS: BUN/Creatinine Ratio 25 (6-26); Blood Urea Nitrogen 16 mg/dL (6-20); Calcium 8.6 mg/dL (8.6-10.3); Carbon Dioxide 23 mEq/L (23-29); Chloride 109 mEq/L (98-107); Glucose 93 mg/dL (70-105); Osmolality,Calculated 293 (280-300); Potassium 3.6 mEq/L (3.5-5.1); Sodium 141 mEq/L (136-145); eGFR For Non-African Americans > 60 (> 60)
[2017-11-18] MEDS: Loratadine 10 MG TABLET PO SCH (07:55)
[2017-11-18] MEDS: Nicotine 21 MG PATCH.TD24 TD SCH (07:56)
[2017-11-18] MEDS: methylPREDNISolone 125 MG/2 ML VIAL IVP SCH (07:56)
[2017-11-18] MEDS: Psyllium 1 PACKET POWD.PACK PO SCH (07:56)
[2017-11-18] MEDS: 0.9 % Sodium Chloride 500 ML IVC SCH ×2 (08:00→20:27)
[2017-11-18] MEDS: Insulin LISPRO 300 UNITS/3 ML VIAL SQ SCH ×3 (08:16→17:37)
[2017-11-18] MEDS: Famotidine 20 MG/2 ML VIAL IV PRN (08:44)
[2017-11-18] MEDS ORDERED: CYCLOPHOSPHAMIDE IV SCH (13:45)
[2017-11-18] MEDS ORDERED: SODIUM CHLORIDE 0.9% IV SCH (13:45)
--- NOTE | 2017-11-18 13:46 | Discharge Summary ---
- NOTES TO OUTPATIENT PROVIDER Notes to Outpatient Provider: no pending studies. 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 Schreiber Requiring admission to receive cycle #6 of dose adjusted REPO CH chemotherapy -Oncology to follow while inpatient Check a.m. labs Continue anti-emetics 11/15-afebrile overnight and hemodynamically stable. Developed leukocytosis with WBC of 30. Likely the result of IV steroids and chemotherapy. Oncology following. Continue to closely monitor. 11/16-no change in medical condition overnight. Remains stable. Remains afebrile. Leukocytosis improving WBC of 20 today. I believe that the leukocytosis is likely result of IV steroids and accommodation of chemotherapy. Oncology continue to follow. Plan for discharge on Tuesday or early next week pending completion of chemotherapy cycle #6. 11/17-No change in condition overnight. Clinically, continues to remain stable. Leukocytosis resolved, WBC 9.8 today. Oncology continue to follow. Finishing cycle #6 of chemotherapy. 11/18-treatment cycle #6 of chemotherapy for Burkitt's lymphoma. Patient is discharged home today after treatment. Remains hemodynamically stable, afebrile. WBC 7.6. Follow with oncology outpatient Qualifiers: Lymphoma site: extranodal excluding spleen and other solid organs Qualified Code(s): C83.79 - Burkitt lymphoma, extranodal and solid organ sites (2) Diabetes mellitus Priority: Secondary Status: Chronic Assessment and Plan: History of diabetes mellitus Before meals and at bedtime Accu-Cheks, add sliding scale insulin coverage 11/15- BG 133 today, cont current regimen. However, is taking iv steroids, monitor closely and adjust SSIC PRN 11/16-fingerstick blood glucose 156 this evening. Continue monitoring continue current regimen. Elevations in blood glucose likely secondary to IV steroid use. 11/17-blood glucose stable, continue current insulin regimen Qualifiers: Diabetes mellitus type: type 2 Diabetes mellitus director long term care insulin use: without director long term care use Diabetes mellitus complication status: without complication Qualified Code(s): E11.9 - Type 2 diabetes mellitus without complications (3) Hypertension Priority: Secondary Status: Chronic Assessment and Plan: History of HTN, BP stable. Continue anti-HTN meds 11/15- stable, continue current med regimen 11/16-BP remained stable, continue current medication regimen 11/17-BP continues to be stable, 132/89 continue current regimen Qualifiers: Hypertension type: essential hypertension Qualified Code(s): I10 - Essential (primary) hypertension (4) Obesity Priority: Secondary Status: Chronic Assessment and Plan: Discussed lifestyle modification Qualifiers: Obesity type: due to excess calories Obesity classification: adult class 2 (BMI 35 - 39.9) Serious obesity comorbidity presence: without serious comorbidity Body mass index: BMI 36.0-36.9 Qualified Code(s): E66.09 - Other obesity due to excess calories; Z68.36 - Body mass index (BMI) 36.0-36.9, adult (5) Leukocytosis Priority: Secondary Status: Acute Assessment and Plan: leukocytosis this morning no bandemia present likely 2/2 chemotherapy and iv steroids remains hemodynamically stable and afebrile monitor daily labs oncology following; thank you 11/16 leukocytosis improving WBC 20.9 today. Clinically, patient appears to be improving. Continue chemotherapy as managed per oncology. See further planning above. 11/17-WBC 9.8, continuing to improve daily 11/18-results, WBC 7.6, remained afebrile overnight Qualifiers: Leukocytosis type: unspecified Qualified Code(s): D72.829 - Elevated white blood cell count, unspecified (6) Abdominal pain Priority: Secondary Status: Resolved Assessment and Plan: Diffuse abdominal pain reported this morning recent h/o ruptured diverticulum reporting some constipation overnight dulcolax suppository x1 now continue with psyllium supplement and docusate BID serial abdominal exams; abdomen currently benign exam no ABX at this time consider imaging if abdominal pain persists or worsens 11/16 abdominal pain much improved overnight. Mild left lower quadrant tenderness to palpation. However abdomen does not appear to be acute. Closely monitor due to recent history of ruptured diverticulum. 11/17-abdominal pain is intermittent but has resolved for now. 11/18 resolved Qualifiers: Abdominal location: unspecified location Qualified Code(s): R10.9 - Unspecified abdominal pain (7) Renal cell carcinoma Priority: Secondary Status: Suspected Assessment and Plan: 1. 5.5 cm x 5.0 cm x 5.6 cm exophytic mass in the upper pole of the left kidney with features consistent with renal cell carcinoma, potentially papillary or chromophobe subtypes by imaging features. Recommend urology evaluation. 2. No findings of metastatic disease in the abdomen. 3. 2.9 cm x 2.3 cm Bosniak category 2F cyst slightly more inferiorly in the upper pole of the left kidney. Recommend follow-up with renal protocol MRI or CT in 6 months per the ACR recommendations for incidental renal masses. 4. A few incidental findings as above. Suspected renal cell carcinoma-urology and oncology following. Plan is for total nephrectomy. 11/18- to f/u with Urology in early December for total nephrectomy of Suspected renal cell carcinoma Qualifiers: Laterality: left Qualified Code(s): C64.2 - Malignant neoplasm of left kidney, except renal pelvis (8) DVT prophylaxis Priority: Secondary Status: Acute Hospital course: Mr. Robison is a 42 year old male with a history of Burkitt's lymphoma. Admitted for chemotherapy cycle #6. Uneventful course in terms of chemotherapy administration. Patient underwent MRI of abdomen for reevaluation of findings on prior imaging. Imaging revealed suspected renal cell carcinoma. Consultation with nephrology completed--patient to undergo total nephrectomy in early December 2017. 2 follow-up with urology and oncology palpation. No pending studies at this time. He remains afebrile, hemodynamically stable with normal WBC. Instructed to return to the ED should he develop fevers, chills, malaise, fatigue. He is to follow next week with oncology for Neulasta support and lab monitoring. PET scan to be completed within 3 months at this time. Again, keep follow-up appointment with Dr. Schreiber. Discharge discussed with: patient, family, nurse, executive search consultant - Time Spent with Patient Total time spent providing and/or coordinating discharge services: Less than 30 minutes - Discharge Medications Home Medications: Loratadine [Claritin] 10 mg PO DAILY 08/15/17 [History] Promethazine [Phenergan] 25 mg Q6HR PRN 08/15/17 [History] Tramadol HCl [Ultram] 50 mg Q8HR PRN 08/15/17 [History] Docusate [Colace] 200 mg PO DAILY 10/03/17 [History] Lisinopril [Zestril] 10 mg PO DAILY #30 tablet 10/03/17 [Rx] Pantoprazole Sodium [Protonix] 40 mg PO DAILY #30 tablet. 10/03/17 [Rx] Psyllium Husk [Metamucil] 660 gm PO DAILY 10/10/17 [History] LORazepam [Ativan] 0.5 mg PO BID PRN 30 Days #60 tablet 10/17/17 [Rx] Allergies/Adverse Reactions: 3 Allergy/AdvReac Type Severity Reaction Status Date / Time No Known Allergies Allergy Verified 11/14/17 08:59 Date of admission: 11/14/17 10:01 Primary care physician: Lanny Stout CNP Consults: 11/14/17 12:06 Consult to Oncology [CONS] Routine Consulting Provider: [facility] Reason for Consult: chemotherapy administration Time Notified: 12:07 Call Completed: Yes 11/17/17 10:42 Consult to Urology [CONS] Routine Consulting Provider: Urology [place] Reason for Consult: 5.5 cm x 5.0 cm x 5.6 cm exophytic mass in the upper pole of the left kidney, 2.9x2.3 cm cyst upper pole left kidney Call Completed: Yes Discharging clinician: Nathaniel Yepez Anticipated date of discharge: 11/18/17 - Constitutional Vitals: Temp Pulse Resp BP Pulse Ox 98.2 F 82 18 149/88 98 11/18/17 07:37 11/18/17 07:37 11/18/17 07:37 11/18/17 07:37 11/18/17 07:37 General appearance: Present: A&O X 3 - Head Head exam: Present: atraumatic, normocephalic - Eye Eye exam: Present: PERRL, conjuntiva pink, sclera anicteric Pupils: Present: PERRL - Neck Neck exam general surgery: Present: supple, trachea midline. Absent: lymphadenopathy - Respiratory Respiratory exam: Present: CTAB. Absent: accessory muscle use, rales, rhonchi, wheezes - Cardiovascular Cardiovascular exam: Present: RRR, +S1, +S2. Absent: diastolic murmur, gallop, rubs, systolic murmur - GI/Abdominal GI/Abdominal exam: Present: normal bowel sounds, soft, no peritoneal signs. Absent: distended, tenderness - Extremities Exam Extremities exam: Present: warm, radial pulses palpable and symmetrical. Absent : calf tenderness, cyanotic, pedal edema - Neurological Exam Neurological exam: Present: CN II-XII intact, oriented X3, no focal deficits. Absent: pronater drift, facial droop, speech deficit - Skin Skin exam: Present: dry, intact - Patient Status Disposition: Home, Self-Care Condition: Good Functional capacity at discharge: independent ambulation Overall status at discharge: patient is back to baseline - Discharge Instructions Follow Up With: Lanny Stout CHURN DRILLER [Primary Care Provider] - - Diet and Activity Activity: resume usual activities as tolerated Diet: advance to your usual diet
--- NOTE | 2017-11-18 16:46 | Oncology Inp Progress Note ---
<Amanda Whitten L - Last Filed: 11/18/17 16:43> Date of Encounter: 11/18/17 Time of Encounter: 15:00 (1) Burkitts lymphoma Status: Chronic Assessment and plan: Mr. Robison is completing #6 of dose adjusted R-EPOCH with IT MTX on day 2 ( Tuesday). No dose adjustment was made during this cycle. This is his final cycle. He has tolerated this cycle and IT MTX exceptionally well. He continues to have regular bowel movements with no abdominal pain at this time , no sign of acute abdomen. PPI for GI prophylaxis. Mr. Robison is completing his chemotherapy treatment later today and planned for discharge later this evening. Next week he is planned for follow up with Neulasta support and lab monitoring. PET scan to be completed about 3 months from this time. Please refer to Dr. Schreiber's attestation below for additional details. Qualifiers: Lymphoma site: extranodal excluding spleen and other solid organs Qualified Code(s): C83.79 - Burkitt lymphoma, extranodal and solid organ sites (2) Renal mass Status: Acute Assessment and plan: MRI abdomen reveals 5.5 cm x 5.0 cm x 5.6 cm exophytic mass in the upper pole of the left kidney with features consistent with renal cell carcinoma, No findings of metastatic disease in the abdomen along with a 2.9 cm x 2.3 cm Bosniak category 2F cyst slightly more inferiorly in the upper pole of the left kidney. Recommend follow-up with renal protocol MRI. Appreciate recommendations per urology, he is planned for a hand assist lap radical nephrectomy in December. Oncology: Subj Interval history: Mr. Robison is feeling well today and without complaint. He has been ambulating throughout halls and visiting with staff most of the day. He is on schedule to finish his final chemotherapy cycle this evening, he is eager to return home. - Constitutional Vitals: Vital Signs Temp Pulse Resp BP Pulse Ox 11/18/17 15:05 98.2 F 101 15 131/79 97 11/18/17 07:37 98.2 F 82 18 149/88 98 11/18/17 04:43 97.7 F 74 16 117/74 99 11/17/17 23:38 98.4 F 81 16 111/69 95 11/17/17 21:06 98.1 F 99 16 121/75 97 11/17/17 18:53 97.8 F 76 16 132/89 96 Intake and Output 11/18/17 11/18/17 11/18/17 07:59 15:59 23:59 Intake Total 0 / 0 240 / 240 Output Total 675 / 675 1000 / 1000 Balance -675 / -675 -760 / -760 Intake: Oral 0 / 0 240 / 240 Output: Urine 675 / 675 1000 / 1000 Other: Meal Breakfast Percent of Meal Consumed 10% Weight 110.6 kg Blood Glucose* 92 Patient Weight 11/18/17 23:59 Weight 110.6 kg General appearance: cooperative, no acute distress, no febrile - Head Head exam: Present: atraumatic - ENT ENT exam: Present: mucous membranes moist - Respiratory Respiratory exam: Present: CTAB. Absent: respiratory distress - Cardiovascular Cardiovascular exam: Present: RRR, +S1, +S2 - GI/Abdominal GI/Abdominal exam: Present: normal bowel sounds, soft. Absent: guarding, rebound, tenderness - Extremities Exam Extremities exam: Present: normal inspection. Absent: calf tenderness - Neurological Exam Neurological exam: Present: alert, oriented X3, no focal deficits, strengths equal and symetr throughout - Psychiatric Psychiatric exam: Present: normal affect, normal mood - Skin Skin exam: Present: dry, intact, normal color, warm Oncology: Obj Data - Labs CBC & Chem 7: 11/18/17 05:51 11/18/17 05:51 Consult Discharge Plan - Plan Instructions: Chronic Hypertension (DC) Referrals: Lanny Stout, DOCTOR OF OSTEOPATHY [Primary Care Provider] - <Pierre Schreiber - Last Filed: 11/18/17 21:15> Date of Encounter: 11/18/17 - Constitutional Vitals: Vital Signs Temp Pulse Resp BP Pulse Ox 11/18/17 19:40 98.7 F 97 14 148/77 97 11/18/17 15:05 98.2 F 101 15 131/79 97 11/18/17 07:37 98.2 F 82 18 149/88 98 11/18/17 04:43 97.7 F 74 16 117/74 99 11/17/17 23:38 98.4 F 81 16 111/69 95 Intake and Output 11/18/17 11/18/17 11/19/17 08:59 16:59 00:59 Intake Total 0 / 0 240 / 240 900 / 900 Output Total 675 / 675 1000 / 1000 Balance -675 / -675 -760 / -760 900 / 900 Intake: IV Fluids 900 / 900 Cyclophosphamide 2,000 MG In 0. 500 / 500 9 % Sodium Chloride 250 ML @ 233.333 mls/hr IV ONCE RICH Rx#: [id number] 0.9 % Sodium Chloride 500 ML @ 400 / 400 25 MLS/HR 25 mls/hr IVC .Q20H RICH Rx#:[id number] Oral 0 / 0 240 / 240 0 / 0 Output: Urine 675 / 675 1000 / 1000 Other: Meal Breakfast Percent of Meal Consumed 10% Weight 110.6 kg Blood Glucose* 92 Patient Weight 11/19/17 00:59 Weight 110.6 kg Oncology: Obj Data - Labs CBC & Chem 7: 11/18/17 05:51 11/18/17 05:51 Labs: Laboratory Results - last 24 hr 11/17/17 11/18/17 11/18/17 21:02 05:51 05:51 WBC 7.6 RBC 3.15 L Hgb 9.7 L Hct 28.7 L MCV 91.1 MCH 30.8 MCHC 33.8 RDW 14.9 H Plt Count 218 MPV 8.4 L Immature Gran % 0.9 Seg Neutrophils % 80.0 Lymphocytes % 16.3 Monocytes % 2.6 Eosinophils % 0.1 Basophils % 0.1 Neutrophils # 6.0 Lymphocytes # 1.2 Monocytes # 0.2 Eosinophils # 0.0 Basophils # 0.0 Sodium 141 Potassium 3.6 Chloride 109 H Carbon Dioxide 23 BUN 16 Creatinine 0.65 L Est GFR ( Amer) > 60 Est GFR (Non-Af Amer) > 60 BUN/Creatinine Ratio 25 Glucose 93 POC Glucose 258 H Calculated Osmolality 293 Calcium 8.6 11/18/17 07:51 WBC RBC Hgb Hct MCV MCH MCHC RDW Plt Count MPV Immature Gran % Seg Neutrophils % Lymphocytes % Monocytes % Eosinophils % Basophils % Neutrophils # Lymphocytes # Monocytes # Eosinophils # Basophils # Sodium Potassium Chloride Carbon Dioxide BUN Creatinine Est GFR ( Amer) Est GFR (Non-Af Amer) BUN/Creatinine Ratio Glucose POC Glucose 92 Calculated Osmolality Calcium - Attending Attestation I examined this patient and my medical decision-making was reviewed with the Advanced Practice Nurse. I agree with the documented findings, disposition and treatment plan as described except to the extent set forth below. He will complete cycle 6 today. He may return home tonight. OV with me on Tuesday with Ivette. Will schedule PET/CT at that juncture as well as EGD. Dr. Malone to perform left nephrectomy in early December.
[2017-11-18 19:43] VITALS: BP 148/77
== END 2017-11-18 20:50 | disposition home or self-care (01) ==
LOC: 3ANU
PROVIDERS: ADMIT Student in an Organized Health Care Education/Training Program; ATTEND Student in an Organized Health Care Education/Training Program

== ENCOUNTER 2018-01-10 07:00 | Inpatient (IN) ==
--- NOTE | 2018-01-10 07:14 | Urology History & Physical ---
Date of Encounter: 01/10/18 Time of Encounter: 07:12 Assessment and Plan (1) Renal mass Current Visit: Yes Status: Acute all questions answered. procedure again discussed. proceed with hand assist lap nephrecotomy. type and screen for surgery. History of Present Illness Chief complaint: renal mass HPI: Mr. Robison is a 42 year old male known left renal mass. here for lap nephrectomy Past Med Surg Social Fam HX - Past Medical History Medical history: cancer, GERD, hypertension Psychiatric history: anxiety - Past Surgical History Surgical History: non-contributory Additional surgical history: tumor removed from eye, port placed, egd - Social History Smoking Status: Former smoker Smokeless Tobacco Status: No Alcohol use: none Drug use: none - Family History Mother Hx Family Endocrine Disorder: Yes (Diabetes) Medications and Allergies Loratadine [Claritin] 10 mg PO DAILY 08/15/17 [History] Promethazine [Phenergan] 25 mg Q6HR PRN 08/15/17 [History] Tramadol HCl [Ultram] 50 mg Q8HR PRN 08/15/17 [History] Docusate [Colace] 200 mg PO DAILY 10/03/17 [History] Psyllium Husk [Metamucil] 660 gm PO DAILY 10/10/17 [History] Nystatin 15 gm TP BID PRN #1 bottle 11/21/17 [Rx] LORazepam [Ativan] 0.5 mg PO DAILY PRN 10 Days #10 tablet 12/05/17 [Rx] Pantoprazole Sodium [Protonix] 40 mg PO BID #60 tablet. 12/05/17 [Rx] Lisinopril [Zestril] 10 mg PO DAILY #30 tablet 01/02/18 [Rx] 3 Allergy/AdvReac Type Severity Reaction Status Date / Time No Known Allergies Allergy Verified 01/04/18 10:06 Review of Systems - Cardiovascular no chest pain Exam - General physical appearance Present: no distress Urology Results - Labs All other labs normal.
--- NOTE | 2018-01-10 07:53 | Anesthesia Evaluation PreOp ---
Date of Encounter: 01/10/18 Time of Encounter: 07:48 - Past History Planned Operation: Left Hand Assist Laparoscopic Radical Nephrectomy Cardiac History: HTN Pulmonary History: Former smoker (quit 06/2017, smoked for 20 years) [employer] History: Denies Any Significant HX Other Medical History: GERD, Other (Burkitt's lymphoma S/P chemo) Anesthesia History: Past Anesthesia (no prior GA) Alcohol Use: none Drug use: none Medications and Allergies Loratadine [Claritin] 10 mg PO DAILY 08/15/17 [History] Promethazine [Phenergan] 25 mg Q6HR PRN 08/15/17 [History] Tramadol HCl [Ultram] 50 mg Q8HR PRN 08/15/17 [History] Docusate [Colace] 200 mg PO DAILY 10/03/17 [History] Psyllium Husk [Metamucil] 660 gm PO DAILY 10/10/17 [History] Nystatin 15 gm TP BID PRN #1 bottle 11/21/17 [Rx] LORazepam [Ativan] 0.5 mg PO DAILY PRN 10 Days #10 tablet 12/05/17 [Rx] Pantoprazole Sodium [Protonix] 40 mg PO BID #60 tablet. 12/05/17 [Rx] Lisinopril [Zestril] 10 mg PO DAILY #30 tablet 01/02/18 [Rx] 3 Allergy/AdvReac Type Severity Reaction Status Date / Time No Known Allergies Allergy Verified 01/04/18 10:06 - Meds/Allergy Pre-op Review Medications Reviewed: Yes Allergies Reviewed: Yes Beta Blockers on Current Med List: No Anesthesia Results - Labs Laboratory Tests 12/07/17 01/04/18 01/04/18 10:18 10:30 10:30 WBC 10.2 Hgb 15.5 Hct 46.7 Plt Count 214 PT 11.9 INR 1.1 Sodium 138 Potassium 4.5 BUN 13 Creatinine 0.86 - Imaging EKG: report reviewed (12/02/2017 SINUS RHYTHM) Anesthesia Exam O2 Sat Height 1.78 m Height 1.78 m Weight 108.862 kg Weight 108.862 kg O2 Sat by Pulse Oximetry 97 Vital Signs Temp Pulse Resp BP Pulse Ox 98.6 F 80 18 123/84 97 01/10/18 07:35 01/10/18 07:35 01/10/18 07:35 01/10/18 07:35 01/10/18 07:35 Height: 5'10" Weight: 240 lbs NPO (# of Hours): 8 Pain Scale: 0 Pain Scale Used: Numeric (1 - 10) - HEENT Pupil (Motor): EOMI Mallampati: II Teeth: Normal Oral Opening: Greater than 3 - [employer] LOC: Oriented [employer] Motor: Normal RUE, Normal LUE, Normal RLE, Normal LLE, Normal Face [employer] Sensory: Normal: RUE, LUE, RLE, LLE, Face - Cardiac Rhythm: Regular Murmur: None - Pulmonary Breath Sounds: bilateral Clear Respiratory Effort: Symmetrical Anesthesia Assess/Plan ASA Score: 3 Modified [place] Scale for Level of Consciousness: Cooperative, oriented, and tranquil Anesthetic Plan: General Monitoring Plan: Standard Monitors Recovery Plan: PACU
[2018-01-10] MEDS ORDERED: Albuterol 2.5 MG/3 ML NEBULIZER IH ONE (07:55)
[2018-01-10] MEDS ORDERED: CeFAZolin Syr 2,000MG/20 ML 2,000 MG/20 ML SYRINGE IVPB ONE (07:55)
[2018-01-10] MEDS ORDERED: Ringers Solution, Lactated 1,000 ML IVC SCH (08:00)
[2018-01-10] MEDS ORDERED: *HR* Propofol 200 MG/20 ML VIAL IVP ONE (09:22)
[2018-01-10] MEDS ORDERED: *HR* Midazolam HCl 2 MG/2 ML VIAL ONE (09:22)
[2018-01-10] MEDS ORDERED: *HR* FentaNYL (PF) 100 MCG/2 ML VIAL ONE ×3 (09:22→11:15)
[2018-01-10] MEDS ORDERED: *HR* Rocuronium Bromide 50 MG/5 ML VIAL ONE (09:23)
[2018-01-10] MEDS ORDERED: *HR* Succinylcholine 200 MG/10 ML VIAL IVP ONE (09:23)
[2018-01-10] MEDS ORDERED: Lidocaine -MPF 2% 2 ML VIAL ONE (09:23)
[2018-01-10] MEDS ORDERED: Acetaminophen IV 1,000 MG/100 ML INFUS..BTL ONE (09:38)
[2018-01-10] MEDS ORDERED: *HR* Labetalol 20 MG/4 ML SYRINGE IVP PRN (09:41)
[2018-01-10] MEDS ORDERED: *HR* Promethazine 25 MG/ML VIAL IVP PRN ×2 (09:41→14:04)
[2018-01-10] MEDS ORDERED: *HR* OxyCODONE Immed Rel 5 MG TABLET PO PRN (09:41)
[2018-01-10] MEDS ORDERED: *HR* HYDROmorphone 2 MG TABLET PO PRN (09:41)
[2018-01-10] MEDS ORDERED: Bupivacaine/EPI 1:200k 0.25%PF 10 ML VIAL INFILT ONE (09:47)
[2018-01-10] MEDS ORDERED: Dexamethasone 4 MG/ML VIAL ONE (10:43)
[2018-01-10] MEDS ORDERED: Ondansetron 4 MG/2 ML VIAL ONE (10:43)
[2018-01-10] MEDS ORDERED: Neostigmine Methylsulfate 3 MG/3 ML SYRINGE ONE (10:44)
[2018-01-10] MEDS ORDERED: SUGAMMADEX SODIUM 500 MG/5 ML VIAL IV ONE (12:06)
[2018-01-10] MEDS ORDERED: *HR* Morphine 10 MG/ML VIAL ONE (12:10)
[2018-01-10] MEDS: *HR* HYDROmorphone (PF) 1 MG/ML SYRINGE IVP PRN ×4 (12:48→13:23)
--- NOTE | 2018-01-10 13:00 | Operative Note ---
Date of procedure: 01/10/18 Pre-op diagnosis: left renal mass. Post-op diagnosis: same Procedure: laparoscopic hand assisted left radical nephrectomy. Anesthesia: RAS Surgeon: León Malone Was there an graduate teaching assistant present: Yes Electorate Officer: Karuna Bustamante Estimated blood loss (cc): 20 Specimen: left kidney Condition: stable Disposition: PACU Procedure in Detail: Patient was taken back to the operating room positioned supine on the operative table. Anesthesia was applied without complication. Patient was prepped and draped in a sterile fashion. Timeout was performed confirming proper patient and procedure. Left flank was marked confirming the proper procedure. Films were reviewed which confirmed the 5 cm posterior renal mass. Castro catheter was placed with return of clear urine. He had been placed in a modified flank position. A 7 cm vertical incision was made adjacent to the umbilicus. Underlying tissue was dissected using Bovie. I was able to identify the fascia which was incised with the bovie . I eventually split the muscle and entered the peritoneum. GelPort was placed without complication. Pneumoperitoneum was achieved through the GelPort and although there were a few small omental adhesions the abdomen appeared benign. I placed my hand through the GelPort and placed 2 additional 12 mm ports inferior and lateral to the handport and superior along the mid line. harmonic scalpal was placed through the inferior port and the colon was reflected along the white line of toldt. It had an abundance of adipose tissue surrounding the kidney and retroperitoneum. Once the colon was reflected identified the spleen which appeared grossly normal. I carefully dissected through the gerotas fascia and identified the ureter. It was ligated using the Harmonic. I traced the ureter up to the renal pelvis eventually identified the pulsatile renal artery. The vein was directly anterior to the artery. Using my index finger and thumb is I was able to clear a space on the anterior and posterior aspect of the renal hilum. An endovascular stapler was placed through the inferior port and used to staple ligate the hilum using a vascular load. 4 additional vascular loads were used to staple ligate the tissue superior to the kidney. Posterior and lateral attachments of the kidney were carefully ligated using the Harmonic scalpel. At that point the kidney was completely free. Gerotas fascia was not violated. A large Endo Catch bag was placed through the inferior port site and the kidney was extracted through the medial incision without requiring enlargement of the incision or fascia. I reexamined the hilum which was dry and without concerning bleeding. The remaining 12 mm port was removed. The handport incision was closed with a #1 looped PDS for fascia, 2-0 vicryl to close scarpas and 4-0 monocryl for the skin. the 12 mm port sites were closed with 0 vicryl. I closed the fasica and Karuna Bustamante closed remainder of the incisions. She also assisted with the pandey. All counts were correct and the patient was stable. urine remained clear.
--- NOTE | 2018-01-10 13:41 | Anesthesia Evaluation Post Op ---
Date of Encounter: 01/10/18 Time of Encounter: 13:35 - Vital Signs Vital Signs: Vital Signs/O2 Sat/Glucose, Most Recent Temp Pulse Resp BP Pulse Ox 100 F H 86 16 132/85 94 01/10/18 12:30 01/10/18 13:00 01/10/18 13:00 01/10/18 13:00 01/10/18 13:00 - Lungs Lungs: Clear Ascult./Percussion - Airway Airway: Non-obstructed - Cardiovascular Regular Rate - Mental Status Mental Status: Alert & Oriented, Answers Appropriately - Pain Pain Scale: 6 (Pain tolerable ) Pain Scale used: Numeric (1 - 10) - Nausea Vomiting Nausea Vomiting: Not Present - Hydration Hydration: Ice chips, Castro catheter Notes: 01/10/18 13:41 AAOx3, VSS with no complaints - Discharge PostOp Status: Transfer Patient to floor
[2018-01-10] MEDS ORDERED: Naloxone 0.4 MG/ML INJ IVP PRN (14:04)
[2018-01-10] MEDS ORDERED: OXYCODONE Oral CONC 10 MG/0.5 ML ORAL.SYG SL PRN (14:04)
[2018-01-10] MEDS: 0.9 % Sodium Chloride 1,000 ML IVC SCH (14:45)
[2018-01-10] MEDS: OXYCODONE Oral CONC 10 MG/0.5 ML ORAL.SYG SL PRN ×2 (14:51→20:22)
[2018-01-10] MEDS: Ondansetron 4 MG/2 ML VIAL IVP PRN (14:52)
[2018-01-10] MEDS: Acetaminophen IV 1,000 MG/100 ML INFUS..BTL IVPB PRN (20:19)
[2018-01-10] MEDS: Pantoprazole 40 MG VIAL IVP SCH (20:23)
[2018-01-11] MEDS: 0.9 % Sodium Chloride 1,000 ML IVC SCH ×2 (00:01→10:50)
[2018-01-11] MEDS: OXYCODONE Oral CONC 10 MG/0.5 ML ORAL.SYG SL PRN ×2 (02:49→18:49)
[2018-01-11 05:06] LABS: Basophils % 0.1 %; Eosinophils % 0.1 %; Hematocrit 38.7 % (37.5-50.1); Immature Granulocytes % 0.4 % (0-4); Lymphocytes # 1.2 K/mcL (0.6-4.6); Lymphocytes % 7.3 %; Mean Corpuscular HGB Conc 33.6 g/dL (31.6-35.5); Mean Corpuscular Hemoglobin 30.6 pg (28.0-33.3); Mean Corpuscular Volume 91.1 fL (83.0-100.0); Mean Platelet Volume 8.9 fL (9.4-12.4); Monocytes # 1.2 K/mcL (0.0-1.3); Monocytes % 7.2 %; Neutrophils # 13.8 K/mcL (1.6-8.9); Platelet Count 215 K/mcL (140-400); Red Blood Count 4.25 M/mcL (4.19-5.50); Red Cell Distribution Width 11.8 % (11.5-14.5); Segmented Neutrophils % 84.9 %
[2018-01-11] MEDS: Pantoprazole 40 MG VIAL IVP SCH ×2 (05:36→18:03)
[2018-01-11] MEDS: Acetaminophen IV 1,000 MG/100 ML INFUS..BTL IVPB PRN ×2 (05:36→22:08)
[2018-01-11 07:37] LABS: Blood Urea Nitrogen 12 mg/dL (6-20); Calcium 8.9 mg/dL (8.6-10.3); Carbon Dioxide 23 mEq/L (23-29); Chloride 103 mEq/L (98-107); Glucose 124 mg/dL (70-105); Osmolality,Calculated 283 (280-300); Potassium 4.1 mEq/L (3.5-5.1); Sodium 136 mEq/L (136-145)
--- NOTE | 2018-01-11 07:59 | Urology Progress Note ---
Date of Encounter: 01/11/18 Time of Encounter: 07:57 - Assessment and Plan (1) Renal mass Current Visit: Yes Status: Resolved Assessment and plan: doing well. remove cath. advance diet. ambulate. labs look OK. Progress Note Subjective: still having pain Narrative: feels good. no nausea. Objective Initial Vital Signs Temp Pulse Resp BP Pulse Ox 98.6 F 80 18 123/84 97 01/10/18 07:35 01/10/18 07:35 01/10/18 07:35 01/10/18 07:35 01/10/18 07:35 - General physical appearance Present: no distress - Additional Exam no bruising. nondistended. - Labs 01/11/18 03:47 01/11/18 03:47 Diabetes panel 01/11/18 Range/Units 03:47 Sodium 136 (136-145) mEq/L Potassium 4.1 (3.5-5.1) mEq/L Chloride 103 (98-107) mEq/L Carbon Dioxide 23 (23-29) mEq/L BUN 12 (6-20) mg/dL Glucose 124 H (70-105) mg/dL Calcium 8.9 (8.6-10.3) mg/dL Calcium panel 01/11/18 Range/Units 03:47 Calcium 8.9 (8.6-10.3) mg/dL Pituitary panel 01/11/18 Range/Units 03:47 Sodium 136 (136-145) mEq/L Potassium 4.1 (3.5-5.1) mEq/L Chloride 103 (98-107) mEq/L Carbon Dioxide 23 (23-29) mEq/L BUN 12 (6-20) mg/dL Glucose 124 H (70-105) mg/dL Calcium 8.9 (8.6-10.3) mg/dL Adrenal panel 01/11/18 Range/Units 03:47 Sodium 136 (136-145) mEq/L Potassium 4.1 (3.5-5.1) mEq/L Chloride 103 (98-107) mEq/L Carbon Dioxide 23 (23-29) mEq/L BUN 12 (6-20) mg/dL Glucose 124 H (70-105) mg/dL Calcium 8.9 (8.6-10.3) mg/dL Consult Discharge Plan - Plan Referrals: Lanny Stout, [facility] [Primary Care Provider] -
[2018-01-11 08:03] LABS: BUN/Creatinine Ratio 10 (6-26); eGFR For Non-African Americans > 60 (> 60)
[2018-01-11] MEDS: Nicotine 14 MG PATCH.TD24 TD SCH (08:40)
[2018-01-11] MEDS: Lactobacillus 1 EACH CAP.SPRINK PO SCH (08:41)
[2018-01-11] MEDS: *HR* OxyCODONE/APAP 5/325 TABLET PO PRN ×3 (10:48→20:43)
[2018-01-11] MEDS ORDERED: Pantoprazole 40 MG VIAL IVP SCH (18:56)
[2018-01-11] MEDS ORDERED: *HR* LORazepam 0.5 MG TABLET PO PRN (19:31)
[2018-01-12] MEDS: 0.9 % Sodium Chloride 1,000 ML IVC SCH ×4 (00:08→22:04)
[2018-01-12] MEDS: OXYCODONE Oral CONC 10 MG/0.5 ML ORAL.SYG SL PRN ×2 (03:20→22:07)
[2018-01-12] MEDS: Acetaminophen IV 1,000 MG/100 ML INFUS..BTL IVPB PRN ×3 (05:04→19:02)
[2018-01-12] MEDS: Pantoprazole 40 MG VIAL IVP SCH ×2 (05:04→16:30)
--- NOTE | 2018-01-12 07:44 | Urology Progress Note ---
Date of Encounter: 01/12/18 Time of Encounter: 07:42 - Assessment and Plan (1) Renal mass Current Visit: Yes Status: Resolved Assessment and plan: Patient is a 42-year-old male who is 2 days status post laparoscopic hand assisted left radical nephrectomy. Discussed discharge goals such as tolerating normal diet, passing flatus, ambulating without assistance, and pain being well controlled with oral pain medication. Patient elects to stay one more night to ensure adequate pain control as well as being able to care for himself after discharge. Progress Note Subjective: feels better, afebrile Narrative: POD #2. Patient seen and examined ambulating in hallway with nurse. Patient states this is the first time he's been up since surgery. Patient states he is unable to tolerate normal diet yet. Denies flatus. Patient is voiding without difficulty. Denies significant pain, chest pain, dyspnea or calf pain. Objective Initial Vital Signs Temp Pulse Resp BP Pulse Ox 98.6 F 80 18 123/84 97 01/10/18 07:35 01/10/18 07:35 01/10/18 07:35 01/10/18 07:35 01/10/18 07:35 - General physical appearance Present: well developed, no distress, no pain - Respiratory Present: normal expansion, normal respiratory effort - Abdomen Present: soft, non tender, wound (incisions clean, dry, intact ) - Integumentary Present: no rash, no growths, no abnormal pigmentation - Musculoskeletal Present: normal gait, normal posture - Psychiatric Present: oriented to time, oriented to person, oriented to place, speech is normal, memory intact - Labs 01/11/18 03:47 01/11/18 03:47 Diabetes panel 01/11/18 Range/Units 03:47 Creatinine 1.16 (0.70-1.30) mg/dL Pituitary panel 01/11/18 Range/Units 03:47 Creatinine 1.16 (0.70-1.30) mg/dL Adrenal panel 01/11/18 Range/Units 03:47 Creatinine 1.16 (0.70-1.30) mg/dL Consult Discharge Plan - Plan Referrals: Lanny Stout, [employer] [Primary Care Provider] -
[2018-01-12] MEDS: Nicotine 14 MG PATCH.TD24 TD SCH (07:47)
[2018-01-12] MEDS: *HR* OxyCODONE/APAP 5/325 TABLET PO PRN ×3 (07:47→16:27)
[2018-01-12] MEDS: Lactobacillus 1 EACH CAP.SPRINK PO SCH (07:47)
[2018-01-12] MEDS: Ondansetron 4 MG/2 ML VIAL IVP PRN (22:39)
[2018-01-13] MEDS: Pantoprazole 40 MG VIAL IVP SCH (05:17)
[2018-01-13] MEDS: Ondansetron 4 MG/2 ML VIAL IVP PRN (05:17)
[2018-01-13] MEDS: *HR* OxyCODONE/APAP 5/325 TABLET PO PRN (05:20)
--- NOTE | 2018-01-13 07:05 | Discharge Summary ---
Orders not resulted at time of discharge: Pending orders 01/04/18 10:30 Red Blood Cells [BBK] Routine Date of Encounter: 01/13/18 Time of Encounter: 07:06 - Discharge Diagnosis (1) Renal mass Priority: Primary Status: Resolved - Hospital Course Hospital course: Mr. Robison is a 42 year old male postop day #3 status post laparoscopic radical nephrectomy. Path pending. Patient is ambulating. Drinking plenty of water. Labs postop day 1 were unconcerning. He is passing gas. Ready for discharge today. Time spent discussing smoking cessation with patient: 3 to 10 minutes - Time Spent with Patient Total time spent providing and/or coordinating discharge services: Less than 30 minutes - Discharge Medications Prescriptions: OxyCODONE/APAP 5/325 [Percocet 5/325 MG] 1 each PO Q4HR PRN 7 Days #20 tablet PRN Reason: Mild To Moderate Pain LORazepam [Ativan] 0.5 mg PO DAILY PRN 10 Days #10 tablet PRN Reason: Anxiety Home Medications: Docusate [Colace] 100 mg PO DAILY 10/03/17 [History] Psyllium Husk [Metamucil] 660 gm PO DAILY 10/10/17 [History] Pantoprazole Sodium [Protonix] 40 mg PO BID #60 tablet 12/05/17 [Rx] Lisinopril [Zestril] 10 mg PO DAILY #30 tablet 01/02/18 [Rx] Cholecalciferol (Vitamin D3) [Vitamin D3] 5,000 unit PO DAILY 01/10/18 [History] Cyanocobalamin (Vitamin B-12) [Vitamin B12] 1,000 mcg PO DAILY 01/10/18 [History ] Lactobacillus Combination No.8 [Adult Probiotic] 1 each PO DAILY 01/10/18 [ History] Nicotine Patch [Nicoderm] 14 mg TD DAILY 01/10/18 [History] LORazepam [Ativan] 0.5 mg PO DAILY PRN 10 Days #10 tablet 01/13/18 [Rx] LORazepam [Ativan] 0.5 mg PO TID PRN 10 Days #30 tablet 01/13/18 [Rx] OxyCODONE/APAP 5/325 [Percocet 5/325 MG] 1 each PO Q4HR PRN 7 Days #20 tablet [Rx] Allergies/Adverse Reactions: 3 Allergy/AdvReac Type Severity Reaction Status Date / Time No Known Allergies Allergy Verified 01/11/18 13:45 Date of admission: 01/10/18 14:03 Primary care physician: Lanny Stout CNP Discharging clinician: León Malone Anticipated date of discharge: 01/13/18 Exam Initial Vital Signs Temp Pulse Resp BP Pulse Ox 98.6 F 80 18 123/84 97 01/10/18 07:35 01/10/18 07:35 01/10/18 07:35 01/10/18 07:35 01/10/18 07:35 - General physical appearance Present: well developed, no distress - Additional Findings abd soft and benign. - Patient Status Disposition: Home, Self-Care Condition: Good Functional capacity at discharge: independent ambulation Overall status at discharge: patient is progressing back to baseline - Discharge Instructions Follow Up With: Lanny Stout CNP [Primary Care Provider] - León Malone MD [Partnered Physician] - (2-4 weeks. ) Additional Instructions: Okay to shower Avoid baths or swimming Okay to ambulate Okay to walk up stairs Avoid heavy lifting, heavy activity and straining Mild nausea is normal. All excessive nausea vomiting No driving until pain is nearly resolved. Okay to leave incisions open to air Stay hydrated Avoid NSAIDs - Diet and Activity Activity: other Diet: advance to your usual diet
[2018-01-13 08:19] VITALS: BP 128/83
[2018-01-13] MEDS: Nicotine 14 MG PATCH.TD24 TD SCH (08:59)
[2018-01-13] MEDS: Lactobacillus 1 EACH CAP.SPRINK PO SCH (08:59)
== END 2018-01-13 11:23 | disposition home or self-care (01) | DRG 658 ==
LOC: SAMDAY 07:00 → 3ANU 14:03
PROVIDERS: ADMIT Urology; ATTEND Urology

== ENCOUNTER 2019-04-20 07:52 | Observation (INO) ==
[~2019-04-20 07:52] MED LIST changes: -*HR* LORazepam 2 MG/ML VIAL IV PRN; -*HR* Promethazine 25 MG/ML VIAL IV PRN; -Acetaminophen 325 MG TABLET PO ONE; +Celecoxib 200 MG CAPSULE PO ONE; -Dexamethasone 10 MG/ML VIAL IV PRN; +Famotidine 20 MG/2 ML VIAL IVP ONE; +Gabapentin 300 MG CAPSULE PO ONE; -Methotrexate PFS 25 MG/ML VIAL IT SCH; -Prochlorperazine 10 MG/2 ML VIAL IV PRN; -RITUXIMAB IV SCH; -SODIUM CHLORIDE 0.9% IV SCH
[2019-04-20] MEDS ORDERED: *HR* Promethazine 25 MG/ML VIAL IVP PRN (08:40)
[2019-04-20] MEDS ORDERED: Ondansetron 4 MG/2 ML VIAL IVP PRN (08:40)
[2019-04-20] MEDS ORDERED: *HR* Labetalol 20 MG/4 ML SYRINGE IVP PRN (08:40)
[2019-04-20] MEDS ORDERED: CeFAZolin Syr 2,000MG/20 ML 2,000 MG/20 ML SYRINGE IVPB ONE (09:10)
[2019-04-20] MEDS ORDERED: Ringers Solution, Lactated 1,000 ML IVC SCH (09:15)
[2019-04-20] MEDS: *HR* HYDROmorphone (PF) 1 MG/ML SYRINGE IVP PRN ×4 (11:57→12:28)
[2019-04-20] MEDS: *HR* OxyCODONE Immed Rel 5 MG TABLET PO PRN ×2 (12:00→12:16)
[2019-04-20] MEDS ORDERED: Albuterol 2.5 MG/3 ML NEBULIZER ONE (16:11)
[2019-04-20] MEDS ORDERED: Albuterol 2.5 MG/3 ML NEBULIZER IH ONE (16:14)
[2019-04-21] MEDS: Ondansetron 4 MG/2 ML VIAL IVP PRN (10:12)
[2019-04-21] MEDS: Acetaminophen IV 1,000 MG/100 ML INFUS..BTL IVPB SCH (18:23)
[2019-04-22] MEDS: Acetaminophen IV 1,000 MG/100 ML INFUS..BTL IVPB SCH ×2 (00:25→05:14)
[2019-04-22] MEDS: Ondansetron 4 MG/2 ML VIAL IVP PRN ×2 (09:16→13:41)
[2019-04-22 14:58] VITALS: BP 145/90
== END 2019-04-22 14:15 | disposition home or self-care (01) ==
LOC: 3ANU 07:52 → SAMDAY 07:52 → 3ANU 19:20
PROVIDERS: ADMIT Surgery; ATTEND Surgery

== ENCOUNTER 2020-06-03 08:19 | Observation (INO) ==
[2020-06-03 09:33] LABS: Basophils % 0.4 %; Eosinophils # 0.2 K/mcL (0.0-0.6); Eosinophils % 1.7 %; Hematocrit 44.5 % (37.5-50.1); Immature Granulocytes % 0.2 % (0-4); Lymphocytes % 21.2 %; Mean Corpuscular HGB Conc 33.7 g/dL (31.6-35.5); Mean Corpuscular Hemoglobin 29.5 pg (28.0-33.3); Mean Corpuscular Volume 87.6 fL (83.0-100.0); Mean Platelet Volume 8.7 fL (9.4-12.4); Monocytes # 0.7 K/mcL (0.0-1.3); Monocytes % 7.4 %; Neutrophils # 6.4 K/mcL (1.6-8.9); Platelet Count 183 K/mcL (140-400); Red Blood Count 5.08 M/mcL (4.19-5.50); Segmented Neutrophils % 69.1 %; White Blood Count 9.3 K/mcL (4.3-11.1)
[2020-06-03 09:58] LABS: BUN/Creatinine Ratio 14 (6-26); Blood Urea Nitrogen 16 mg/dL (6-20); Calcium 9.4 mg/dL (8.6-10.3); Carbon Dioxide 20 mEq/L (23-29); Chloride 109 mEq/L (98-107); Glucose 89 mg/dL (70-105); Osmolality,Calculated 289 (280-300); Potassium 4.2 mEq/L (3.5-5.1); Sodium 139 mEq/L (136-145); eGFR For African Americans > 60 (> 60); eGFR For Non-African Americans > 60 (> 60)
[2020-06-03 09:59] LABS: Troponin I < 0.03 ng/mL (< 0.04)
[2020-06-03] MEDS ORDERED: E-Z-HD (BARIUM SULF) SUSPENSION PO ONE (10:36)
[2020-06-03] MEDS ORDERED: Simethicone/Sodium Bic/Citr Ac 1 EACH GRAN.EF.PK PO ONE (10:36)
[2020-06-03] MEDS ORDERED: E-Z-PAQUE (BARIUM SULF) SUSP 1 BOTTLE PO ONE (10:36)
[2020-06-03 12:29] VITALS: BP 132/73
== END 2020-06-03 14:23 | disposition home or self-care (01) ==
LOC: 3ANU 08:19 → EMEROOARM 08:19 → 3ANU 13:23
PROVIDERS: ADMIT Internal Medicine; ATTEND Internal Medicine